=== PATIENT | female | born 1990 | race African-American/Black ===

== ENCOUNTER 2020-01-01 20:15 | Emergency (ER) | payer OTHER, SELFPAY ==
[2020-01-01 20:17] VITALS: BP 137/71; PULSE 85; RESP 18; TEMP 36.9; O2SAT 99
--- NOTE | 2020-01-01 20:28 | ED.SKABFB ---
HPI - Skin/Abscess/Foreign Bdy General Chief complaint: Skin/Abscess/Foreign Body Stated complaint: WOUND Time Seen by Provider: 01/01/20 20:22 Source: patient and RN notes reviewed Mode of arrival: other Limitations: no limitations History of Present Illness HPI narrative: Pt is a 29 y/o female who presents to the ED with c/o of a hair bump on her left groin that began a month ago. She notes that she tried to get the hair out herself, but has not had any luck. Pt's LMP was 12/04/19. Pt also reports neck swelling, diffuse body tingling, weight gain, increased sleeping, thick white vaginal discharge, and pelvic pain, but denies a fever, sore throat, rhinorrhea, dysuria, and pruritus. MD complaint: other (hair bump) Onset (ago): month(s) (1) Location: genitals Associated symptoms: other (neck swelling, diffuse body tingling, weight gain, increased sleeping, thick white vaginal discharge, pelvic pain) Related Data Allergies Allergy/AdvReac Type Severity Reaction Status Date / Time Sulfa (Sulfonamide Allergy Severe SWELLING Verified 01/01/20 20:25 Antibiotics) Review of Systems Review of Systems: All systems reviewed & are unremarkable except as noted in HPI and below Constitutional: Constitutional: Denies fever(s), Reports weight gain and Reports other (increased sleeping) ENT: Denies sore throat and Denies other (rhinorrhea) Genitourinary: Genitourinary: Denies dysuria, Reports pelvic pain and Reports vaginal discharge (thick white) Musculoskeletal: Musculoskeletal: Reports other (neck swelling) Integumentary/Breasts: Skin/Breast: Denies pruritus and Reports other (hair pump on left groin) Neurologic: Reports tingling (diffuse body) PMFSH Past Medical History Medical History (Updated 01/02/20 @ 00:00 by Abelardo Mojica) Patient denies significant medical history Surgical History Surgical History (Updated 01/01/20 @ 20:38 by Yesenia Ricketts) Hx of section Social History Social History (Updated 01/01/20 @ 20:28 by Yesenia Ricketts) Smoking status: Never smoker Exam Narrative: Exam Narrative: GENERAL: Well-appearing, well-nourished, and in no acute distress. HEAD: Normocephalic, atraumatic EYES: PERRLA and EOMI, conjunctiva clear without discharge EARS: TM's clear bilaterally without erythema or dullness NOSE: Nares clear, no rhinorrhea or epistaxis THROAT:Mucous membranes moist, Oropharynx normal without erythema, exudate, peritonsillar swelling or fluctuance NECK: Supple, without lymphadenopathy or mass RESPIRATORY: No respiratory distress, Airway patent, Respirations non-labored, Clear to auscultation without rales, rhonchi or wheeze HEART: Regular rate and rhythm. No murmur heard. Normal peripheral pulses. ABDOMEN: Soft, mild suprapubic tenderness, nondistended, normal active bowel sounds. No masses. No rebound or guarding, No organomegaly. EXTREMITIES: No edema, normal strength with full range of motion. SKIN: Warm, dry, normal color without rash NEURO: Alert and oriented x3. CN 2-12 grossly intact. No focal deficits. PSYCH: Normal mood and affect. : Speculum Exam - Cervix: normal appearance of the cervix and Cervical os closed Bimanual exam- vagina & uterus: no cervical motion tenderness Bimanual Exam- Adnexa, other: no masses Other: thick yellow mucous vaginal discharge, scant amount, cervix otherwise appears normal. No pustules or lesions seen on vulva. No inguinal lymphadenopathy Skin: General skin exam: normal color Rashes: no rashes Course Course Emergency Course: Patient presented with complaints she believe is stemming from hair bump. On evaluation, I did not seen findings of infected hair bump or abscess or cellulitis. I discussed with patient she will need to follow up with PCP and OBGYN for continued evaluation if her concerns don't clear after receiving antibiotics for her vaginal discharge Vital Signs Vital signs: Vital Signs Temperature 9
[2020-01-01 21:01] LABS: Add Urine Microscopic? YES; Appearance Urine Clear (Clear); Bilirubin Urine Negative (Negative); Blood Urine Negative (Negative); Color Urine Yellow (Yellow); Glucose Urine UA Negative (Negative); Ketones Urine 2+ mg/dL (Negative); Leukocyte Esterase Ur Negative LEU/UL (Negative); Mucus Urine Moderate /lpf; Nitrate Urine Negative (Negative); Protein Urine Negative (Negative); RBC Urine 0-2 /hpf (0-2); Specific Grav Ur 1.026 (1.001-1.035); Squamous Epithelial Cell Urine Moderate /hpf (Few); Urobilinogen Urine Negative mg/dL (<2.0); WBC Urine 0-3 /hpf
--- NOTE | 2020-01-01 21:44 | PC.NURSE ---
Pt upset that we won't test her for HIV. I explained to her that that is not something we test for in the ED. Pt states So basically youre refusing care because I have concerns and you aren't treating me I explained sarah that this is not a test that we do in the ED and she can have that done at her PCP. She states Well i don;t have a car so that is gonna cost like another $30 to go there, I just don't know why i can't get it here since im already here, I know I have had it done before I said again thats not something we do here, its not an emergent test
[2020-01-01] MEDS: AZITHROMYCIN 250 MG TABLET 1000 MG PO (22:15)
[2020-01-01] MEDS: LIDOCAINE HCL 1% LOCAL INJ 20 ML VIAL (22:15)
[2020-01-01] MEDS: cefTRIAXone 250 MG VIAL IM (22:15)
== END 2020-01-01 22:45 | disposition home or self-care (01) ==
PROVIDERS: Emergency Provider General Practice
DX: N89.8 Other specified noninflammatory disorders of vagina (principal)
CPT/HCPCS: 81001; 81025; 87070; 87491; 87591; 87808; 96372; 99284; A9270; J0696

== ENCOUNTER 2025-02-04 17:16 | Emergency (ER) | payer OTHER, SELFPAY ==
--- NOTE | ~2025-02-04 | CT_ITS ---
CLINICAL INDICATION: 34-year-old woman presents with throbbing lower back pain following exertion 3 days earlier. COMPARISON: None. TECHNIQUE: Multiple contiguous axial images of the abdomen, pelvis and lumbar spine were performed wi thout the administration of intravenous contrast The dose-length product (DLP) was 914.54 mGy-cm. Automated exposure control and iterative reconstruction technique were employed. FINDINGS/OBSERVATIONS: Visualized lower thorax: The bilateral lung bases are clear. The heart is of normal size, without pericardial effusion. Small hiatal hernia is present. Liver: The liver demonstrates homogeneous attenuation and is not enlarged measuring 14 cm in longitudinal di mension. Gallbladder and biliary system: The gallbladder is only minimally distended, and otherwise unremarkable. Pancreas: Limited evaluation of the pancreas secondary to the lack of intravenous contrast. Spleen: The spleen demonstrates homogeneous attenuation and is not enlarged measuring 9 cm in longitudinal di mension. Kidneys: The bilateral kidneys are unremarkable, without hydronephrosis or renal calculi. Adrenal glands: Unremarkable. Gastrointestinal tract: Fecal stasis within the colon. Appendix: The air-filled appendix is of normal caliber (axial series, images 122 through 131) Vasculature: Unremarkable. Lymph nodes: Limited evaluation without intravenous contrast. Pelvic structures: The bladder is decompressed, and otherwise unremarkable. The uterus is retroverted and retroflexed, and nodular in contour. Free fluid within the pelvis, not uncommon for a patient of this age. Body wall and musculoskeletal: No significant degenerative disease within the lower thoracic or lumbosacral spine. IMPRESSION: No acute findings within the abdomen, pelvis, lower thoracic or lumbosacral spines, as detailed above Reviewed, dictated and finalized at location A. IMPRESSION: No acute findings within the abdomen, pelvis, lower thoracic or lumbosacral spi yaw, as detailed above
[2025-02-04 17:31] VITALS: BP 127/64; PULSE 85; RESP 20; TEMP 36.4; O2SAT 100
--- OUTSIDE RECORDS SUMMARY | 2025-02-04 19:00 | XMS_ITS | Referral Summary ---
Author Organization [facility] Address [address] [place] [address] Care Team Providers Care Exercise Rider Name Role Phone Miriam Marcelino Primary Care Provider [phone] Source Comments [facility] Affiliates and Associated Physician Practices is amultiple site organization consisting of ambulatory clinics and hospital sitesin [place], [place], [place] and [place]. This disclosure is being madepursuant to the Care Everywhere program and may not contain all information available regarding this patient. Last updated 18.[facility] Allergies Active Allergy Reactions Criticality Noted Date Comments Sulfa Drugs Swelling 04/20/2018 Medications * Be aware that medications may not be up to date on this document. Alwaysverify current medications with the patient. Medication Sig Dispensed Refills Start Date End Date Status erythromycin (ERYDERM) 2 % solutionIndications:H irsutism,Postinflamma tory hyperpigmentation,Monica terial folliculitis Apply to affected area 2 times daily Apply to navas area twice daily for 3 days when you celeste. 30 days supply. 60 mL 5 04/20/2018 Active spironolactone (ALDACTONE) 100 MG tabletIndications:Hir sutism Take 1 tablet by mouth once daily 30 day supply. 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 Social History Tobacco Use Types Packs/Day Years Used Date Smoking Tobacco: Former Cigars Smokeless Tobacco: Never Comments:very rarely Alcohol Use Standard Drinks/Week Comments Yes 0 (1 standard drink = 0.6 oz pur e alcohol) socially Sex and Gender Information Value Date Recorded Sex Assigned at Not on file Gender Identity Not on file Sexual Orientation Not on file Last Filed Vital Signs Vital Sign Reading Time Taken Comments Blood Pressure 133/81 04/30/2022 2:48 PM CDT Pulse 91 04/30/2022 2:48 PM CDT Temperature 36.4 C (97.6 F) 04/30/2022 2:48 PM CDT Respiratory Rate 18 04/30/2022 2:48 PM CDT Oxygen Saturation 98% 04/30/2022 2:48 PM CDT Inhaled Oxygen Concentration - - Weight 102.1 kg (225 lb) 04/30/2022 2:48 PM CDT Height 167.6 cm (5' 6 ) 04/30/2022 2:48 PM CDT Body Mass Index 36.32 04/30/2022 2:48 PM CDT Plan of Treatment Not on file Procedures Procedure Name Priority Date/Time Associated Diagnosis Comments HIV-1 HIV-2 ANTIBODY + HIV P24 AG PANEL STAT 04/30/2022 6:34 PM CDT from Last 3 Months or Most Recently Relevant to Health Maintenance Results * HIV-1 HIV-2 ANTIBODY + HIV P24 AG PANEL (04/30/2022 6:34 PM CDT) HIV Antigen/Antibod y 1 & 2 Non-reacti ve Non-react tania 04/30/2022 8:[address] [facility] Comment:No Laboratory eviden ce of HIV infection. Blood BLOOD SPECIMEN / Unknown Venipuncture / Unknown 04/30/2022 6:34 PM CDT 04/30/2022 6:38 PM CDT Renato Parr MD LAB - CHEMISTRY ORDERABLES [facility] [address] [place] [address], [facility] [phone] from Last 3 Months or Most Recently Relevant to Health Maintenance Care Teams Exercise Rider Relationship Specialty Start Date End Date Miriam Marcelino PA [address] [place] [address] PCP - General 10/21/18
--- OUTSIDE RECORDS SUMMARY | 2025-02-04 19:00 | XMS_ITS | Patient Health Summary ---
Author Organization [facility] Address [address] [place] [address] Care Team Providers Care Complaint Investigator Name Role Phone Miriam Marcelino Primary Care Provider [phone] Note from [facility],non-owned Affiliates and Associated Physician Practices is amultiple site organization consisting of ambulatory clinics and hospital sitesin [place], [place], [place] and [place]. This disclosure is being madepursuant to the Care Everywhere program and may not contain all information available regarding this patient. Last updated 18.[facility] Allergies * Sulfa Drugs(Swelling) Medications * Be aware that medications may not be up to date on this document. Alwaysverify current medications with the patient. * erythromycin (ERYDERM) 2 % solution(Started 04/20/2018) Apply to affected area 2 times daily Apply to navas area twice daily for 3 days when you ceelste. 30 days supply. 5 refills remaining * spironolactone (ALDACTONE) 100 MG tablet(Started 04/20/2018) Take 1 tablet by mouth once daily 30 day supply. 6 refills remaining Active Problems Problem Noted Date Diagnosed Date [...] Mass Index 36.32 04/30/2022 2:48 PM CDT Procedures * SYPHILIS ANTIBODY CASCADING REFLEX(Performed 04/30/2022) * HIV-1 HIV-2 ANTIBODY + HIV P24 AG PANEL(Performed 04/30/2022) * LIPASE BLOOD(Performed 04/30/2022) * COMPREHENSIVE METABOLIC PANEL(Performed 04/30/2022) * CBC W AUTO DIFFERENTIAL(Performed 04/30/2022) * CHLAMYDIA + GC AMPLIFIED PROBE(Performed 04/30/2022) * BACTERIAL VAGINOSIS RAPID TEST(Performed 04/30/2022) * TRICHOMONAS VAGINALIS AMPLIFIED PROBE(Performed 04/30/2022) * HCG URINE QUALITATIVE(Performed 04/30/2022) * URINALYSIS REFLEX TO MICROSCOPIC NO CULTURE(Performed 04/30/2022) Results * SYPHILIS ANTIBODY CASCADING REFLEX (04/30/2022 6:34 PM CDT) Treponema pallidum Antibody Non-react tania Non-react tania 04/30/2022 8:07 PM CDT [facility] Comment: No Laboratory evidence of syphilis infection. Note: Circulating antibodies may be low or undetectable in early infection. If recent exposure is suspected, re-draw sample in 2-4 weeks and repeat testing. Blood BLOOD SPECIMEN / Unknown Venipuncture / Unknown 04/30/2022 6:34 PM CDT 04/30/2022 6:38 PM CDT Renato Parr MD LAB - SEROLOGY ORDERABLES [address] [address], [facility] [phone] * HIV-1 HIV-2 ANTIBODY + HIV P24 AG PANEL (04/30/2022 6:34 PM CDT) Pathologist [facility] HIV Antigen/Antibod y 1 & 2 Non-reacti ve Non-react tania 04/30/2022 8:07 PM CDT [facility] Comment:No Laboratory eviden ce of HIV infection. Blood BLOOD SPECIMEN / Unknown Venipuncture / Unknown 04/30/2022 6:34 PM CDT 04/30/2022 6:38 PM CDT Renato Parr MD LAB - CHEMISTRY ORDERABLES Performing Organization Address [facility]/ZIP Co de Phone Number [address] [address], [facility] [phone] * (ABNORMAL) CBC W AUTO DIFFERENTIAL (04/30/2022 3:41 PM CDT) Pathologist [facility] WBC 4.9 3.5 - 10.5 10 3/uL 04/30/2022 4:18 PM CDT [facility] RBC 4.59 3.80 - 5.20 10 6/uL 04/30/2022 4:18 PM T [facility] Hemoglobin 12.2 12.0 - 15.6 g/dL 04/30/2022 4:18 PM T [facility] Hematocrit 38.4 35.0 - 45.0 % 04/30/2022 4:18 PM CDT [facility] MCV 83.7 80.7 - 98.3 fL 04/30/2022 4:18 PM CDT [facility] MCH 26.6(L) 26.7 - 34.0 pg 04/30/2022 4:18 PM CDT [facility] MCHC 31.8 30.8 - 35.9 g/dL 04/30/2022 4:18 PM CDT [facility] Platelet Count 256 150 - 400 10 3/uL 04/30/2022 4:18 PM [facility] RDW-SD 43.8 36.0 - 50.0 fL 04/30/2022 4:18 PM [facility] RDW-CV 14.4 11.2 - 14.8 % 04/30/2022 4:18 PM [facility] MPV 12.7 9.4 - 12.9 fL 04/30/2022 4:18 PM [facility] nRBC Absolute 0.00 0 10 3/uL 04/30/2022 4:18 PM [facility] nRBC Auto 0.0 0 /100 WBC 04/30/2022 4:18 PM [facility] Neutrophils % 54.6 35.0 - 70.0 % 04/30/2022 4:18 PM [facility] Lymphocytes % 34.0 20.0 - 43.0 % 04/30/2022 4:18 PM [facility] Monocytes % 10.2 5.0 - 13.0 % 04/30/2022 4:18 PM [facility] Eosinophils % 0.6 0.0 - 6.0 % 04/30/2022 4:18 PM [facility] Basophil % 0.4 0.0 - 2.0 % 04/30/2022 4:18 PM [facility] Neutrophils Absolute 2.7 1.6 - 7.0 10 3/uL 04/30/2022 4:18 PM [facility] Lymphocyte Absolute 1.7 1.1 - 3.9 10 3/uL 04/30/2022 4:18 PM [facility] Monocytes Absolute 0.50 0.26 - 1.07 10 3/uL 04/30/2022 4:18 PM [facility] Eosinophils Absolute 0.03 0.00 - 0.47 10 3/uL 04/30/2022 4:18 PM [facility] Basophils Absolute 0.02 0.00 - 0.08 10 3/uL 04/30/2022 4:18 PM [facility] Immature Granulocytes % 0.2 0.0 - 1.0 % 04/30/2022 4:18 PM [facility] Immature Granulocytes Absolute 0.01 04/30/2022 4:18 PM [facility] Blood BLOOD SPECIMEN / Unknown Venipuncture / Unknown 04/30/2022 3:41 PM CDT 04/30/2022 4:08 PM CDT Emigdio River PA-C LAB - HEMATOLOGY ORD ERABLES [facility] [address] [place] [id number], [facility] [phone] * COMPREHENSIVE METABOLIC PANEL (04/30/2022 3:41 PM CDT) BUN 7 7 - 26 mg/dL 04/30/2022 4:33 PM [facility] Creatinine 0.65 0.56 - 0.96 mg/dL 04/30/2022 4:33 PM [facility] Sodium 138 136 - 145 mmol/L 04/30/2022 4:33 PM [facility] Potassium 4.0 3.5 - 4.5 mmol/L 04/30/2022 4:33 PM [facility] Chloride 105 98 - 107 mmol/L 04/30/2022 4:33 PM [facility] CO2 24 22 - 29 mmol/L 04/30/2022 4:33 PM [facility] Glucose 92 70 - 115 mg/dL 04/30/2022 4:33 PM [facility] Calcium 9.3 8.4 - 10.2 mg/dL 04/30/2022 4:33 PM [facility] Protein Total 7.7 6.0 - 8.3 g/dL 04/30/2022 4:33 PM [facility] Albumin 4.2 3.4 - 5.0 g/dL 04/30/2022 4:33 PM [facility] Bilirubin Total 0.7 0.2 - 1.2 mg/dL 04/30/2022 4:33 PM [facility] Alkaline Phosphatase 46 40 - 150 U/L 04/30/2022 4:33 PM [facility] ALT 18 5 - 55 U/L 04/30/2022 4:33 PM [facility] AST 25 5 - 34 U/L 04/30/2022 4:33 PM CDT [facility] Anion Gap 13 8 - 18 04/30/2022 4:33 PM CDT [facility] BUN/Creatinine Ratio 11 7 - 23 04/30/2022 4:33 PM CDT [facility] Osmolality Calculated 284 270 - 300 mOsm/kg 04/30/2022 4:33 PM CDT [facility] Albumin/Globulin Ratio 1.2 1.1 - 2.3 04/30/2022 4:33 PM T [facility] eGFR by CKD-EPI >90 >=90 mL/min/1.7 3 m2 04/30/2022 4:33 PM CDT [facility] Blood BLOOD SPECIMEN / Unknown Venipuncture / Unknown 04/30/2022 3:41 PM CDT 04/30/2022 4:08 PM CDT [employer] [employer] LAB - CHEMISTRY [employer] JACQUES [facility] [address] [place] [address], [place] [phone] * LIPASE BLOOD (04/30/2022 3:41 PM CDT) Lipase 16 8 - 78 U/L 04/30/2022 4:33 PM CDT [facility] Blood BLOOD SPECIMEN / Unknown Venipuncture / Unknown 04/30/2022 3:41 PM CDT 04/30/2022 4:08 PM CDT Emigdoi Dun[place] PA-C LAB - CHEMISTRY [employer] [facility] [address] [place] [phone], [place] [phone] * BACTERIAL VAGINOSIS RAPID TEST (04/30/2022 3:38 PM CDT) Bacterial Vaginosis Rapid Negative Negative 04/30/2022 4:29 PM CDT [facility] Microbiology VAGINAL SWAB / Unknown Collection / Unknown 04/30/2022 3:38 PM CDT 04/30/2022 4:06 PM CDT Emigdio River PA-C LAB - MICROBIOLOGY O RDANTIONE [facility] [address] [place] [address], [place] [phone] * TRICHOMONAS VAGINALIS AMPLIFIED PROBE (04/30/2022 3:38 PM CDT) Trichomonas vaginalis Amplified Probe Negative Negative 05/01/2022 10:10 AM CDT [facility] MICROBIOLOGY Microbiology ENTIRE VAGINA / Unknown Collection / Unknown 04/30/2022 3:38 PM CDT 04/30/2022 4:06 PM CDT Narrative [facility]CRO[facility] - 05/01/2022 10:10 AM CDT Results based on detection/no detection of ribosomal RNA by amplified method. Emigdio River PA-C LAB - MICROBIOLOGY O MARIBEL Performing Organization Address [facility]/ZIP Co de Phone Number [facility]OLOG[facility] [address] [place] [address], [facility] [phone] * CHLAMYDIA + GC AMPLIFIED PROBE (STL) (04/30/2022 3:38 PM CDT) Chlamydia Amplified Probe Negative Negative 05/01/2022 5:45 AM CDT [facility] MICROBIOLOG[facility] GC Amplified Probe Negative Negative 05/01/2022 5:45 AM CDT [facility] MICROBIOLOGY Microbiology ENTIRE VAGINA / Unknown Collection / Unknown 04/30/2022 3:38 PM CDT 04/30/2022 4:06 PM CDT Narrative [facility]CRO[facility] - 05/01/2022 5:45 AM CDT Results based on detection/no detection of ribosomal RNA by amplified method. Emigdio River PA-C LAB - MICROBIOLOGY O RDERABLES Performing Organization Address City/[facility]/ZIP Co de Phone Number [facility]CRO[facility]OLOG[facility] [address] [place] [address], [facility] [phone] * (ABNORMAL) URINALYSIS REFLEX TO MICROSCOPIC NO CULTURE (04/30/2022 3:33 PM CDT) Color UA Yellow Straw, Yellow 04/30/2022 4:26 PM [facility] Clarity UA Slt Cloudy(A) Clear 04/30/2022 4:26 PM [facility] Specific [place] UA 1.021 1.005 - 1.030 04/30/2022 4:26 PM [facility] pH UA 5.0 5.0 - 8.0 pH 04/30/2022 4:26 PM [facility] Protein UA Negative Negative 04/30/2022 4:26 PM [facility] Glucose UA Negative Negative 04/30/2022 4:26 PM [facility] Ketone UA Trace(A) Negative 04/30/2022 4:26 PM [facility] Bilirubin UA Negative Negative 04/30/2022 4:26 PM [facility] Blood UA Negative Negative 04/30/2022 4:26 PM [facility] Nitrite UA Negative Negative 04/30/2022 4:26 PM [facility] Leukocyte Esterase Trace(A) Negative 04/30/2022 4:26 PM [facility] Urobilinogen UA Negative Negative mg/dL 04/30/2022 4:26 PM [facility] RBC UA 0-2 None Seen, 0-2, 3-5 /HPF 04/30/2022 4:26 PM [facility] WBC UA 0-5 None Seen, 0-5 /HPF 04/30/2022 4:26 PM [facility] Bacteria UA 2+(A) None /HPF 04/30/2022 4:26 PM [facility] Squamous Epithelial Cells UA 0-2 None Seen, 0-2, 3-5 /HPF 04/30/2022 4:26 PM [facility] Mucus UA 3+ /LPF 04/30/2022 4:26 PM [facility] Urine URINE SPECIMEN OBTAINED BY CLEAN CATCH PROCEDURE / Unknown Collection / Unknown 04/30/2022 3:33 PM CDT 04/30/2022 4:06 PM CDT Narrative [facility] - 04/30/2022 4:26 PM CDT Emigdio River PA-C LAB - URINALYSIS ORD ERABLES Performing Organization Address City/[facility]/ZIP Co de Phone Number [facility] [address] [place] [address], [place] [phone] * HCG URINE QUALITATIVE (04/30/2022 3:33 PM CDT) Test Urine Negative Negative 04/30/2022 4:35 PM CDT [facility] Urine URINE / Unknown Collection / Unknown 04/30/2022 3:33 PM CDT 04/30/2022 4:06 PM CDT Emigdio River PA-C LAB - URINALYSIS ORD ERABLES Performing Organization Address City/[facility]/ZIP Co de Phone Number [address] [address], [place] [phone] Care Teams Complaint Investigator Relationship Specialty Start Date End Date Miriam Marcelino PA [address] [place] [address] [place] [id number] PCP - General 10/21/18
--- OUTSIDE RECORDS SUMMARY | 2025-02-04 19:00 | XMS_ITS | Data Portability ---
Author Organization [facility] Address [address] [place] [address] Assessment Encounter Date Assessment Date Assessment LastModified by Organization Details LastModified Time 08/04/2024 08/04/2024 Annual gynecological exam performed. Patient will come back in a year unless there are new symptoms. [email or web address] Not available 08/04/2024 10:03:53 Plan of Treatment Reminders Order Date Submit Date Provider Last Modified By Organization Details Last Modified Time Details Appointments None recorded. Lab hsv-2 igg Ab, serum [address] (Lab), [address], [place], [address], 5 11:25:22 hbcab (hepatitis B core Ab) igm, serum [address] (Lab), [address] [place], [address], 5 11:25:22 HBsAg (hepatitis B surface Ag), serum [address] (Lab), [address] [place], [address], 5 11:25:22 hepatitis C virus Ab, serum [address] (Lab), [address] [place], [address], 5 11:25:22 HIV 1+2 AB + HIV 1 p24 Ag, qualitative immunoassay , serum [address] (Lab), [address], [place], [address], 5 11:25:22 RPR (rapid plasma reagin), serum [address] (Lab), [address], [place], [address], 5 11:25:23 CT + NG + TV, RNA, unspecified specimen 2023 024 [facility] (Lab), [address], [place], [address], 4 13:55:59 urinalysis, dipstick 2023 024 [email or web address] [address], [facility] [address], [place], [address], 4 10:39:13 culture, urine 2023 024 [facility] (Lab), [address], [place], [address], 4 06:52:31 CBC w/ auto diff [address] (Lab), [address], [place], [address], 4 11:35:14 CMP, serum or plasma [address] (Lab), [address], [place], [address], 4 11:35:14 lipid panel, blood [address] (Lab), [address], [place], [address], 4 11:35:14 TSH, serum or plasma [address] (Lab), [address] [facility], [place], [address], 4 11:35:14 25-hydroxyv itamin D2 + 25-hydroxyv itamin D3, QN, serum or plasma [address] (Lab), [address] [facility], [place], [address], 4 11:35:14 pap, IG + HR HPV - HPV regardless but if HPV is positive need subtyping 16,18/45 2023 024 [facility] (Lab), [address] [facility], [place], [address], 4 11:08:41 Referral None recorded. Procedures None recorded. Surgeries None recorded. Imaging None recorded. Medication Orders fluconazole 150 mg tablet 2024 025 [facility] [address] [place], [address], 5 16:27:12 metronidazo le 0.75 % (37.5 mg/5 gram) vaginal gel 2024 025 [facility] [address] [place], [address], 5 16:27:11 nystatin-tr iamcinolone 100,000 unit/gram-0 .1 % topical ointment 2024 025 [facility] [address] [place], [address], 5 16:27:12 fluconazole 150 mg tablet 2023 024 [facility] [address] [place], [address], 11:56:57 metronidazo le 0.75 % (37.5 mg/5 gram) vaginal gel 2023 [facility] [address] [place], [address], 11:56:57 Cipro 500 mg tablet 2023 [facility] [address] [place], [address], 10:34:57 Diflucan 150 mg tablet 2023 [facility] [address] [place], [address], 10:35:03 Patient TargetsNo targets recorded. Patient InstructionsNo instructions recorded. Reason for Referral None Reported. Results Created Date Observation Date Name Description Value Unit Range Abnormal Flag Note LastModifiedBy Organization Detail LastModifiedTime 08/04/2008/04/2024 urina lysis , dipst ick Leukocytes trace Not Available Verito bowen [address], [place], [address], 08/04/2024 10:37:35 08/04/20 24 08/04/2024 urina lysis , dipst ick Nitrite normal Not Available [facility] [address], [place], [address], 08/04/2024 10:37:35 08/04/20 24 08/04/2024 urina lysis , dipst ick Urobilinogen normal Not Available Magi maki [address], [place], [address], 08/04/2024 10:37:35 08/04/20 24 08/04/2024 urina lysis , dipst ick Protein trace Not Available [facility] [address], [place], [address], 08/04/2024 10:37:35 08/04/20 24 08/04/2024 urina lysis , dipst ick pH 5 Not Available [facility] [address], [place], [address], 08/04/2024 10:37:35 08/04/20 24 08/04/2024 urina lysis , dipst ick Blood +++ Not Available [facility] [address], [place], [address], 08/04/2024 10:37:35 08/04/20 24 08/04/2024 urina lysis , dipst ick Specific [place] 1.020 Not Available [facility] michael [address], [place], [address], 08/04/2024 10:37:35 08/04/20 24 08/04/2024 urina lysis , dipst ick Ketone normal Not Available [facility] [address], [place], [address], 08/04/2024 10:37:35 08/04/20 24 08/04/2024 urina lysis , dipst ick Bilirubin normal Not Available Josy juarez [address], [place], [address], 08/04/2024 10:37:35 08/04/20 24 08/04/2024 urina lysis , dipst ick Glucose normal Not Available [facility] [facility] [address], [place], [address], 08/04/2024 10:37:35 08/04/20 24 08/04/2024 urina lysis , dipst ick Appearance normal Not Available Verito bowen [address], [place], [address], 08/04/2024 10:37:35 08/04/20 24 08/04/2024 urina lysis , dipst ick Color normal Not Available [facility] [address], [place], [address], 08/04/2024 10:37:35 08/06/20 24 08/06/2024 CULTU RE: URINE result report SEE RESULT S BELOW Test: Cultu re: Urine Speci men Sourc e: Urine - Clean Catch Speci men Type: Urine Speci men Date: 2023 0827 Resul t Date: 2023 0548 Resul t Statu s: Final resul t Abnor mal: No Resul ting Lab: [facility] [address] [facility] [address] Tel: CULTU RE ----- ----- ----- --- No growt h in 1 day (dete ction level of 10,00 0 colon ies / ml.) Not Available [facility] (Lab) [address] [facility], [place], [address], 08/08/2024 06:52:31 08/06/20 24 08/06/2024 IMAGE GUIDE D PAP AND HPV REGAR DLESS image guided Pap, HPV regardless of Pap result SEE RESULT S BELOW CASE REPOR T: Cytol ogy Gynec ologi paty Repor t Case: [id number] Autho jefe hutchison Provi sandy: Mervat Fisher MD Colle cted: 08/06 0830 Order ing Locat ion: [place] [facility] Recei dipti: 08/07 0904 First Scree n: Ronnie [place], CT Speci men: Scree jesus Pap - Image d, Cervi x STATE MENT OF ADEQU ACY: Satis facto ry for evalu ation Trans forma tion zone compo nent prese nt Parti ally obscu ring blood prese nt. ----- ----- ----- ----- ----- ----- ----- ----- ----- ----- ----- ----- ----- ----- ----- ----- ----- ---- FINAL DIAGN OSIS: Negat tania for Intra epith elial Gregg wylie or Linnea velazquez (NIL) . Elect candice rosenberg d by Ronnie Martinez CT on 2023 at 10:05 AM ----- ----- ----- ----- ----- ----- ----- ----- ----- ----- ----- ----- ----- ----- ----- ----- ----- ---- HPV RESUL TS: HPV mRNA E6/E7 : No HPV mRNA Detec jojo NOTE: This high risk HPV mRNA assay detec ts fourt een high- risk HPV types (16, 18, 31, 33, 35, 39, 45, 51, 52, 56, 58, 59, 66, 68) witho ut diffe renti ation . COMME NT: This speci men was revie wed by a Cytot echno logis t and/o r Patho logis t (as indic ated in this repor t) after evalu ation using the Thinp rep Imagi ng Syste m. CLINI PATY INFOR MATIO N: Menst rual Statu s: LMP (if appli cable ): Clini paty Histo ry/Pr eviou s Pap: Type of Neopl ean (if appli cable ): Signi fican t Clini paty Findi ngs: Other Histo ry: Hormo yaw (if appli cable ): PAP EDUCA DAVE L NOTE: The Pap Test is a scree jesus test with an inher ent false negat tania rate. Liqui d-bas ed sampl ing may decre ase, but will not elimi laney, false negat tania resul ts. A negat tania resul t does not precl ude the prese nce and/o r devel opmen t of disea se, since the prese nce of abnor mal cells in the sampl e depen ds on the locat ion of the lesio n and sampl ing techn ique. Maria Eugenia nued regul ar scree jesus is the best metho d of cance r preve ntion . If repor jojo cytol ogic findi ng do not corre late with physi paty and/o r histo rical findi ngs, furth er inves tigat ion is recom bernie d, as clini yaima colón nted. Not Available [facility] (Lab) [address] [facility], [place], [address], 08/13/2024 11:08:40 10/01/20 24 10/01/2024 CT/GC AND TRICH OMONA S VAGIN CRYSTAL (RRNA ), URINE chlamydia trachomatis, PCR Negati ve negati ve Not Available [facility] (Lab) [address] [facility], [place], [address], 10/02/2024 13:55:59 10/01/20 24 10/01/2024 CT/GC AND TRICH OMONA S VAGIN CRSYTAL (RRNA ), URINE neisseria gonorrhoeae, PCR Negati ve negati ve Not Available [facility] (Lab) [address] [facility], [place], [address], 10/02/2024 13:55:59 10/01/20 24 10/01/2024 CT/GC AND TRICH OMONA S VAGIN CRYSTAL (RRNA ), URINE trichomonas vaginalis ribosomal RNA (rrna) Negati ve negati ve Not Available [facility] (Lab) [address] [facility], [place], [address], 10/02/2024 13:55:59 12/10/19 25 12/10/2024 [facility]OM[facility] SW[facility], WM bacterial vaginosis (bv), tma Negati ve negati ve This test detec ts ribos omal RNA from bacte isabel assoc iated with bacte rial vagin osis (BV), inclu ding Lacto bacil poly (L. gasse ri, L. crisp atus and L. jense stanley), Gardn erell a vagin crystal, and Atopo bium vagin ae by Trans cript ion-M ediat ed Ampli ficat ion (TMA) . A miguel good e grover t is repor jojo based on instr ument softw are to deter mine BV posit tania or negat tania statu s. Not Available [facility] (Lab) [address] [facility], [place], [address], 12/11/2024 22:35:09 12/10/19 25 12/10/2024 [facility]OM[facility] H SWAB, WM tej species, tma Negati ve negati ve Not Available [facility] (Lab) [address] [facility], [place], [address], 12/11/2024 22:35:09 12/10/19 25 12/10/2024 WOMEN 'S HEALT H SWAB, WM tej glabrata, tma Negati ve negati ve Not Available [facility] (Lab) [address] [facility], [place], [address], 12/11/2024 22:35:09 12/10/19 25 12/10/2024 [facility] SW[facility], WM trichomonas vaginalis, tma Negati ve negati ve This assay tests for and diffe renti ates betwe en Ally da glabr jaime, the Ally da speci es group (C. albic ans, C. tropi calis , C. parap sandra is, C. dubli niens is), and Trich omona s vagin crystal by Trans cript ion-M ediat ed Ampli ficat ion (TMA) . Not Available [facility] (Lab) [address] [place], [address], 12/11/2024 22:35:09 Result Notes None recorded. 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 Procedures Surgical History Date Name Laterality Status Provider Name and Address Organization Details Recorded Time 11/22/19 25 Date of Last Mammogram completed NATHAN Mosqueda [facility] 12/10/2024 16:10:15 08/06/20 24 Date of Last Pap Smear completed Prachi Rosenberg [facility] 09/29/2024 10:34:57 04/17/20 11 section completed Grisel [facility] 08/04/2024 11:08:17 11/21/19 09 Tonsillectomy completed [facility] 08/04/2024 11:08:41 Imaging Results None recorded. Procedure Notes None recorded. Medical Equipment None Reported. Allergies Allergen ID Allergen Name Allergen Category Reaction Reaction Severity Criticality Documentation Date Start Date Code Code System Note Provider Name and Address Organization Details Recorded Time 9660 Substance with sulfonami de structure and antibacte rial mechanism of action (substanc e) medicatio n Not available Not available Not available 11/07/2020 44633 8003 SNOMED Comme nt: [facility]; Not Available [facility] 0 14:14:35 Medications Name Sig Start Date Stop Date Status Note LastModified by Organization Details LastModified Time terconazo le 0.4 % vaginal cream INSERT ONE APPLICAT ORFUL VAGINALL Y ONCE A DAY AT BEDTIME FOR 7 DAYS active Not Available Not Available No t Available fluconazo le 150 mg tablet take 1 tablet by mouth now, repeat in 72 hours if needed active Not Available Not Available No t Available fluconazo le 200 mg tablet TAKE ONE TABLET BY MOUTH DAILY FOR 2 DAYS active Not Available Not Available No t Available phenazopy ridine 200 mg tablet TAKE ONE TABLET BY MOUTH THREE TIMES DAILY AFTER MEALS FOR 2 DAYS active Not Available Not Available No t Available metronida zole 0.75 % (37.5 mg/5 gram) vaginal gel insert 1 applicat orful by vaginal route every day at bedtime for 5 nights active Not Available Not Available No t Available moxifloxa sanjuanita 400 mg tablet TAKE 1 TABLET BY MOUTH ONCE DAILY 12/10 completed Not Available Not Available Not Available clotrimaz ole 1 % vaginal cream APPLY CREAM VAGINALL Y ONCE A DAY AT BEDTIME FOR 7 DAYS active Not Available Not Available No t Available metronida zole 500 mg tablet TAKE 1 TABLET BY MOUTH THREE TIMES DAILY FOR 10 DAYS active Not Available Not Available No t Available nystatin- triamcino lone 100,000 unit/gram -0.1 % topical ointment Apply by topical route for 5 days. active Not Available Not Available No t Available phenazopy ridine 100 mg tablet TAKE 1 TABLET BY MOUTH THREE TIMES DAILY FOR 2 DAYS active Not Available Not Available No t Available cephalexi n 500 mg capsule TAKE 1 CAPSULE BY MOUTH 4 TIMES DAILY FOR 5 DAYS 12/10 completed Not Available Not Available Not Available Cipro 500 mg tablet Take 1 tablet every 12 hours by oral route. 09/29 completed Not Available Not Available Not Available mupirocin 2 % topical ointment apply by topical route 2 times every day a small amount to the affected area x 7 days 08/04 completed Prescrib ed Elsewher e: No Locat ion: [facility] odify By: oksana azar DateTime : 01/02/20 03:00:00 PM Not Available Not Available Not Available ergocalci ferol (vitamin D2) 1,250 mcg (50,000 unit) capsule TAKE 1 CAPSULE BY MOUTH ONCE A WEEK FOR 8 WEEKS active Not Available Not Available No t Available doxycycli ne hyclate 100 mg tablet TAKE 1 TABLET BY MOUTH TWICE DAILY 12/10 completed Not Available Not Available Not Available naproxen 500 mg tablet TAKE 1 TABLET BY MOUTH TWICE DAILY WITH FOOD NEEDED FOR PAIN active Not Available Not Available No t Available nitrofura ntoin monohydra te/macroc rystals 100 mg capsule TAKE 1 CAPSULE BY MOUTH TWICE DAILY FOR 7 DAYS (TAKE WITH PROBIOTI CS) active Not Available Not Available No t Available cholecalc iferol (vitamin D3) 50 mcg (2,000 unit) tablet TAKE 1 TABLET BY MOUTH ONCE DAILY (AFTER THE HIGH DOSE OF VITAMIN D ) active Not Available Not Available No t Available Vitals Date Recorded Body height Body mass index (BMI) Body weight Systolic blood pressure Diastolic blood pressure Provider Name and Address Organization Details Last Updated DateTime 08/04/2024 168.91 cm 33.9 kg/m2 77505.17 g 114 mm[Hg] 68 mm[Hg] Grisel Suarez [facility] 4 10:11:43 Date Recorded Body height Body mass index (BMI) Body weight Systolic blood pressure Diastolic blood pressure Provider Name and Address Organization Details Last Updated DateTime 09/29/2024 168.91 cm 33.9 kg/m2 53232.17 g 116 mm[Hg] 76 mm[Hg] Prachi Chet [facility] 4 10:34:35 Date Recorded Body height Body mass index (BMI) Body weight Systolic blood pressure Diastolic blood pressure Provider Name and Address Organization Details Last Updated DateTime 12/10/2024 168.91 cm 35 kg/m2 05769.32 g 117 mm[Hg] 72 mm[Hg] NATHAN Mosqueda [facility] 5 16:05:45 Social History Question Answer Notes LastModified by Organizat ion Details LastModified Time Tobacco Smoking Status Never Smoker Grisel Suarez [facility] 08/04/2024 11:07:43 What Is Your Level Of Alcohol Consumption? Occasional [email or web address] Information not available 08/04/2024 Are You Blind Or Do You Have Difficulty Seeing? No [email or web address] Information n ot available 08/04/2024 What Is Your Level Of Caffeine Consumption? None [email or web address] Information not available 08/04/2024 In The 14 Days Before Symptom Onset, Have You Had Close Contact With A Laboratory-confirm ed COVID-19 While That Case Was Ill? No [email or web address] Information n ot available 08/04/2024 In The 14 Days Before Symptom Onset, Have You Had Close Contact With A Person Who Is Under Investigation For COVID-19 While That Person Was Ill? No [email or web address] Information not available 08/04/2024 Have You Been To An Area Known To Be High Risk For COVID-19? No [email or web address] Information not available 08/04/2024 Are You Currently Employed? No [email or web address] Information not available 12/10/2024 Are You Deaf Or Do You Have Serious Difficulty Hearing? No Information not available 08/04/2024 What Type Of Diet Are You Following? REGULAR Information n ot available 08/04/2024 Have You Ever Been Counseled For Unhealthy Alcohol Use? No [email or web address] Information not available 08/04/2024 Do You Use Your Seat Belt Or Car Seat Routinely? Yes [email or web address] Information not available 08/04/2024 Are You Sexually Active? Yes [email or web address] Information not available 12/10/2024 Do You Have Smoke And Carbon Monoxide Detectors In Your Home? Yes [email or web address] Information not available 08/04/2024 Do You Feel Stressed (tense, Restless, Nervous, Or Anxious, Or Unable To Sleep At Night)? [id number] [email or web address] Information not available 08/04/2024 Do You Use Any Illicit Or Recreational Drugs? No [email or web address] Information not available 08/04/2024 Do You Use Sunscreen Routinely? Yes Information not available 08/04/2024 Has Tobacco Cessation Counseling Been Provided? No [email or web address] Information not available 08/04/2024 Do You Or Have You Ever Used Any Other Forms Of Tobacco Or Nicotine? No [email or web address] Information not available 08/04/2024 Sex: Unknown Functional Status Question Answer Note LastModified by Organizat ion Details LastModified Time Do you have difficulty walking or climbing stairs? No Information not available 08/04/2024 Are you able to walk? YESWOREST [email or web address] Information not available 08/04/2024 Are you able to care for yourself? Yes [email or web address] Information not available 08/04/2024 Do you have difficulty dressing or bathing? No [email or web address] Information not available 08/04/2024 What is your exercise level? Occasional [email or web address] Information not available 08/04/2024 Mental Status None recorded. Family History Relationship Description Onset Age of this Age Resolved Age Notes LastModified by Organization Details LastModified Time Maternal Grandfather Malignant tumor of colon [email or web address] Not available 08/04 11:07:00 Maternal Grandmother Malignant neoplasm of uterus [email or web address] Not available 08/04 11:07:13 Notes:Maternal grandfather: Cancer, colon Medical History Condition Response Allergies (Food, seasonal, environmental ) N Other Y Breast Cancer N Drug/Latex Allergies/Reactions N Blood Transfusion N Dermatologic Disorders N Lung Disease N Defects or Inherited Disease N Breast Problem N Gestational Diabetes N Hematologic disorders N Anesthesia Complications N History of STI N Deep Vein Thrombosis N Polycystic ovary syndrome N Anxiety Disorder N Autoimmune disease N Arthritis N Infertility N Polyps N Acid Reflux (GERD) N History of abnormal pap N Cancer N Stroke N Varicosities N Neurologic/Epilepsy N Endometriosis N High Cholesterol N Headaches N Fibromyalgia N Kidney Disease N Heart Problems N Kidney or Bladder Problems N Thyroid Problems N GI Problems N Eating Disorder N Anemia N Art (IVF or FET) N Psychiatric Illness N Ovarian Cancer N Diabetes N Pulmonary (TB, Asthma) N Hepatitis/Liver Disease N No Past Medical History N Eczema N Urinary Tract Infection N Abuse/Domestic Violence N Asthma N Trauma/Violence N Depression/ depression N Heart Disease N Pre-Eclampsia N Hypertension N Osteoporosis N Thrombophilias N Gynecological History Statement/Question Response Abnormal Pap N Flow Moderate Date of Last Mammogram 11/22/2024 Date of LMP 09/29/2024 On BCP's at Conception? N Was last menstrual period normal Y STIs/STDs N HPV Vaccine N Duration of Flow (days) 5 Current Control Method None Are cycles usually normal Y Date of Last Colonoscopy Frequency of Cycle (Q days) 28 Sexually Active? N Menses Monthly Y Date of DEXA bone scan Date of Last Pap Smear 08/06/2024 Sexual Problems? N LMP Definite Obstetrics History GPAL:G 3 P 2 1 0 2 Type Value Full Term 2 Premature 1 Living 2 Total 3 Past Encounters Encounter ID Performer Location Encounter Start Date Encounter Closed Date Diagnosis/Indication Diagnosis SNOMED-CT Code Diagnosis ICD10 Code Diagnosis Note [id number] Grisel Suarez [facility] [address] [address] 08/04/2024 09:45:55 08/04/2024 10:33:02 Gynecologic examination 78588917 Z01.419 Annual gynecologi paty exam performed. Patient will come back in a year unless there are new symptoms. Suggest Calcium with Vitamin D if not eating in diet. Patient advised to get annual flu shot. Recommend yearly physicals and preform monthly breast exams. Genetic testing is available for patients with family history of cancer. Engage in safe sexual practices, use condoms. Encouraged to have daily exercise. Avoid tobacco and illicit drugs, moderation of alcohol. If BMI greater than 25 dietary consult advised. If you have any questions please call or email. Pap smear- today laboratory evaluation -today Urinary tr act infectious disease 42928432 N39.0 Urinary symptoms 9736319 08 R39.9 [id number] Prachi Rosenberg [facility] [address],[facility] [place] [address] 09/29/2024 10:14:20 09/29/2024 11:59:16 Bacterial vaginosis 037707756 N76.0 Vaginitis 27497663 N76.0 Vaginal discharge 432660 006 N89.8 Sexually t ransmitted infectious disease 1259659 A64 [id number] BRIAN Young [facility] [address],[facility] [place] [address] 12/10/2024 15:53:45 12/11/2024 09:20:20 Vaginitis 41508851 N76.0 vaginitis/ STI panel sentvulvar care guidelines discussedr x sent for BV/yeast - r/b/a reviewedqu estions answered Time spent in visit is a total of 22 mins with at least 50% of visit consisting of counseling and review of plan of care. Venereal d isease screening 324200054 Z11.3 Health Concerns Section Related Observation LastModified by Organization Detai ls LastModified Time None Recorded Concern Status LastModified by Organization Details LastModified Time None Recorded Advance Directives Directive None Recorded Payers Encounter Date Sequence Insurance Name Policy Number Policy Jameson Covered Member ID Jameson Member ID Guarantor Name 08/04/2024 1 [place] [employer] [place] [employer] Tamara Meade [id number] Tamara Meade 09/29/2024 1 [place] [facility] Tamara Meade [id number] Tamara Meade 12/10/2024 1 [facility] (MEDICAID HMO) [id number] Tamara Meade [id number] Tamara Meade Notes Date Note Type Note Provider Name and Address Organization Details Recorded Time 08/04/2024 text/html Annual GYNReport ed bypatient.History:no gynecologic complaints Menstrual cycle:Normal menses Urinary symptoms:No hematuria Vulva:No genital lesion Vagina:Normal vaginal discharge Breast:No breast pain; No breast lump Current Contraception: control not practiced Sexual complaints:No sexual complaints; No pain during intercourse Menopausal Symptoms:No menopausal symptoms Psychological symptoms:No depression; No anxiety Preventive measures:Encourage self breast examination; Encourage regular exercise Grisel garcia, [facility] 08/04/2024 11:13:57 12/10/2024 text/html Vaginal/Vulvar ProblemReported bypatient.Notes:myco plasma - 34yopresents for vaginal discharge/odor/itchi ngsymptoms have been on and off x 3 monthsSA, no new partners neg pelvic painneg n/v/fneg flu-like symptoms BRIAN Young [address], [place], [address], [facility] 12/11/2024 09:06:36 OBGyn Episode Ob Episode Information Episode Created Date Number of Fetuses Patient Bloodtype Patient rh Status Prepregnancy Weight lbs Domestic Partner Domestic Partner Phone Father Name Care Transition Manager Status 08/04/20 24 1 CLOSED Fetus Data First Name Last Name Admitted to NICU Weight (g) Sex Living Outcome Pediatric Complications Fetus ID Race Codes Race Delivery Type 1474.17 4 M [place] [id number] Vaginal Delivery Francisco Calculation Initial Francisco Date Initial Exam Date Initial Exam Provider Initial Ultrasound Date Last Menstrual Period Date Ultra Sound Weeks Gestation 0 Eighteen To Twenty Week Francisco Update Ultra Sound Date Fundal Height At Umbil Quickening Date Ultra Sound Latest Weeks Gestation Final Francisco Confirmed By Final Francisco Confirmed Date Final Francisco Date Ultra Sound Latest Days Gestation 0 0 Menstrual History Last Menstrual Date Menses Monthly On Bcp Conception Prior Menses Frequency Hcg Plus Date Menarche Onset Age Delivery Information Delivery Date Delivery Type Labor Anesthesia Weeks Gestation Incision Type Labor Labor Length Hrs Delivered By Post Complications Tubal Sterilization Discharge Date Comments 9 true Discharge Information Feeding Method Contraceptive Method Maternal HG B and HCT Levels Ob Episode Information Episode Created Date Number of Fetuses Patient Bloodtype Patient rh Status Prepregnancy Weight lbs Domestic Partner Domestic Partner Phone Father Name Care Transition Manager Status 08/04/20 24 1 CLOSED Fetus Data First Name Last Name Admitted to NICU Weight (g) Sex Living Outcome Pediatric Complications Fetus ID Race Codes Race Delivery Type 3742.13 4 F Prematur e [id number] Primary Francisco Calculation Initial Francisco Date Initial Exam Date Initial Exam Provider Initial Ultrasound Date Last Menstrual Period Date Ultra Sound Weeks Gestation 0 Eighteen To Twenty Week Francisco Update Ultra Sound Date Fundal Height At Umbil Quickening Date Ultra Sound Latest Weeks Gestation Final Francisco Confirmed By Final Francisco Confirmed Date Final Francisco Date Ultra Sound Latest Days Gestation 0 0 Menstrual History Last Menstrual Date Menses Monthly On Bcp Conception Prior Menses Frequency Hcg Plus Date Menarche Onset Age Delivery Information Delivery Date Delivery Type Labor Anesthesia Weeks Gestation Incision Type Labor Labor Length Hrs Delivered By Post Complications Tubal Sterilization Discharge Date Comments 1 32 true Discharge Information Feeding Method Contraceptive Method Maternal HG B and HCT Levels
--- OUTSIDE RECORDS SUMMARY | 2025-02-04 19:00 | XMS_ITS | Clinical Summary ---
Author Organization [facility] Address [address] [place] [address] Care Team Providers Care Leather Dresser Name Role Phone Miriam Marcelino Primary Care Provider [phone] Source Comments [facility],non-owned Affiliates and Associated Physician Practices is amultiple site organization consisting of ambulatory clinics and hospital sitesin [place], [place], [place] and [place]. This disclosure is being madepursuant to the Care Everywhere program and may not contain all information available regarding this patient. 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 Family History Medical History Relation Name Comments Asthma Neg Hx CVA Neg Hx Cancer - Breast Neg Hx Cancer - Other Neg Hx Cancer - Skin, Melanoma Neg Hx Cancer - Skin, Non Melanoma Neg Hx Eczema Neg Hx Hemophilia Neg Hx Psoriasis Neg Hx Social History Tobacco Use Types Packs/Day Years [...] 04/30/2022 2:48 PM CDT Plan of Treatment Health Maintenance Due Date Last Done Comments PAP SMEAR 1991 HEPATITIS C SCREENING 02/05/2009 DTAP/TDAP/TD VACCINES (1 - Tdap) 2010 HEPATITIS B VACCINE (1 of 3 - 19+ 3-dose series) 2010 COVID-19 VACCINE ( - 2023-2 5 season) 2024 12/10/2021, 11/19/2021 INFLUENZA VACCINE (#1) 2024 DEPRESSION SCREENING 11/21/2024 ZOSTER VACCINE (1 of 2) 2041 HIV SCREENING Completed 04/30/2022 HIB VACCINE Aged Out No longer eligi ble based on patient's age to complete this topic HPV VACCINE Aged Out No longer eligi ble based on patient's age to complete this topic MENINGOCOCCAL (Group B) VACCINE SHARED DECISION-MAKING Aged Out No longer eligible based on patient's age to complete this topic MENINGOCOCCAL GROUPS A/C/Y/W VACCINE Aged Out No longer eligible b ased on patient's age to complete this topic PNEUMOCOCCAL VACCINE Aged Out No long er eligible based on patient's age to complete this topic Procedures Procedure Name Priority Date/Time Associated Diagnosis Comments HIV-1 HIV-2 ANTIBODY + HIV P24 AG PANEL STAT 04/30/2022 6:34 PM CDT from Last 3 Months or Most Recently Relevant to Health Maintenance Results * HIV-1 HIV-2 ANTIBODY + HIV P24 AG PANEL (04/30/2022 6:34 PM CDT) HIV Antigen/Antibod y 1 & 2 Non-reacti ve Non-react tania 04/30/2022 8:07 PM CDT [facility] Comment:No Laboratory eviden ce of HIV infection. Blood BLOOD SPECIMEN / Unknown Venipuncture / Unknown 04/30/2022 6:34 PM CDT 04/30/2022 6:38 PM CDT Renato Parr MD LAB - CHEMISTRY ORDERABLES Performing Organization Address City/State/[place]UST Co de Phone Number [facility] [address] [place] [address], [facility] [phone] from Last 3 Months or Most Recently Relevant to Health Maintenance Care Teams Leather Dresser Relationship Specialty Start Date End Date Miriam Marcelino PA [address] [place] [address] PCP - General 10/21/18
--- OUTSIDE RECORDS SUMMARY | 2025-02-04 19:00 | XMS_ITS | Data Portability ---
Author Organization [facility] [address] [facility] [facility] [place] [address] Care Team Providers Care Drafter Geophysical Name Role Phone MIRIAM MARCELINO Primary Care Provider GONZALES Macdonald Supervisor Underwriting Clerks Assessment No assessment recorded. Plan of Treatment Reminders Order Date Submit Date Provider Last Modified By Organization Details Last Modified Time Details Appointments None record ed. Lab bacter ial vagino sis + vagini tis panel, vagina l 2017 018 [facility], [address] [facility], [place], [address], 8 16:37:13 Referral dermat ologis t referr al 2017 018 [email or web address] [facility], [address] [place], [address], 8 09:24:47 Procedures None record ed. Surgeries None record ed. Imaging None record ed. Medication Orders flucon azole 150 mg tablet 2017 018 [facility]39, [address] [facility], [place], [place], [id number], 8 14:38:59 docusa te sodium 100 mg capsul e 2017 018 [facility] #[id number], [address] [facility], [place], [place], [id number], 8 17:00:43 raniti dine 150 mg tablet 2017 018 susan rivas [facility] #38903, [address], [place], [place], [id number], 8 14:27:02 spiron olacto ne 100 mg tablet 2016 017 [facility] #[id number], [address], [place], [place], [id number], 8 14:28:36 FE 12/10 (28) 1 mg-20 mcg (21)/7 5 mg (7) tablet 2016 017 [facility] #[id number], [address] [facility], [place], [place], [id number], 8 15:53:00 Patient TargetsNo targets recorded. Patient Instructions Encounter Date Encounter Id Patient Instructions Last Modified By Organization Details Last Modified Time 08/22/2017 [id number] polycystic ovary syndrome: care instructions [email or web address] Not available 08/23/2017 08:09:29 01/10/2018 [id number] constipation: care instructions [email or web address] Not available 01/10/2018 17:00:38 high-fiber diet: care instructions jdeyto Not available 01/10/2018 17:00:38 knee program exercises jdeyto Not available 01/10/2018 17:22:40 Bring food/exercise journal to clinic for review in 1-2 weeks. 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 Referral for F emale hirsutism Female hirsutism Referring Physician: Gonzales Tapia, [employer], Encounter Date: 01/10/2018 Results Created Date Observation Date Name Description Value Unit Range Abnormal Flag Note LastModifiedBy Organization Detail LastModifiedTime 01/10/20 18 01/12/2018 bacte rial vagin osis + vagin itis panel , vagin al atopobium vaginae Low - 0 score Not Available [facility] ([facility]) [address] [facility], [place], [address], 01/12/2018 16:37:12 01/10/20 18 01/12/2018 bacte rial vagin osis + vagin itis panel , vagin al bvab 2 Low - 0 score Not Available [facility] ([facility]) [address] [facility], [place], [address], 01/12/2018 16:37:12 01/10/20 18 01/12/2018 bacte rial vagin osis + vagin itis panel , vagin al megasphaera 1 Low - 0 score Calcu late total score by reginaldo hutchison the 3 indiv idual bacte rial vagin osis (BV) marke r score s toget her. Total score is inter prete d as follo ws: Total score 0-1: Indic ates the absen ce of BV. Total score 2: Indet ermin ate for BV. Addit ional clini paty data shoul d be evalu ated to estab daniel a diagn osis. Total score 3-6: Indic ates the prese nce of BV. This test was devel oped and its perfo rmanc e bambi cteri stics deter mined by [facility]. It has not been clear ed or appro dipti by the Food and Drug Admin istra tion. The FDA has deter mined that such clear ance or appro jenny is not neces evelina. Not Available [facility] ([facility]) [address] [facility], [place], [address], 01/12/2018 16:37:12 01/10/20 18 01/12/2018 bacte rial vagin osis + vagin itis panel , vagin al tej albicans, WM Negati ve negati ve Not Available [facility] ([facility]) [address] [facility], [place], [address], 01/12/2018 16:37:12 01/10/20 18 01/12/2018 bacte rial vagin osis + vagin itis panel , vagin al tej glabrata, WM Negati ve negati ve This test was devel jonyed and its perfo rmanc e bambi cteri stics deter mined by [facility]. It has not been clear ed or appro dipti by the Food and Drug Admin istra tion. The FDA has deter mined that such clear ance or appro jenny is not neces evelina. Not Available [facility] ([facility]) [address] [facility], [place], [address], 01/12/2018 16:37:12 01/10/20 18 01/12/2018 bacte rial vagin osis + vagin itis panel , vagin al trich vag by WM Negati ve negati ve Not Available [facility] ([facility]) [address] [facility], [place], [address], 01/12/2018 16:37:12 01/10/20 18 01/12/2018 bacte rial vagin osis + vagin itis panel , vagin al chlamydia trachomatis, WM Negati ve negati ve Not Available [facility] ([facility]) [address] [place], [address], 01/12/2018 16:37:12 01/10/20 18 01/12/2018 bacte rial vagin osis + vagin itis panel , vagin al neisseria gonorrhoeae, WM Negati ve negati ve Not Available [facility] ([facility]) [address] [place], [address], 01/12/2018 16:37:12 10/19/20 18 10/19/2018 XR, chest , 2 view No observ ation record ed. jdeyto [facility] [address], [place], [address], 10/19/2018 13:25:28 Result Notes None recorded. Problems Name Problem SNOMED Code Status Onset Date Resolution Date Notes Provider Name and Address Organization Details Recorded Time Constipation 71325956 Active 2017 Miriam Marcelino PA-C Attn: Xu hutchison,[address] [facility], [place], [address], [facility] 8 17:17:36 No current problems or disability 075114539 Active Latrell Guerra PA-C Attn: Accountoli g,[address] [facility], [place], [address], [facility] 5 12:21:50 Gastroesophage al reflux disease without esophagitis 915583889 Active 2016 Miriam Marcelino PA-C Attn: Xu hutchison,[address] [facility], [place], [address], [facility] 7 15:44:38 Hirsutism 757236988 Active 2016 Miriam Marcelino PA-C Attn: Xu g,[address] [facility], [place], [address], [facility] 7 15:44:40 Flatulence, eructation and gas pain 596985997 Active 2016 Miriam Marcelino PA-C Attn: Xu hutchison,[address] [facility], [place], [address], [facility] 7 15:44:51 Problem Notes None recorded. Procedures Surgical History Date Name Laterality Status Provider Name and Address Organization Details Recorded Time 7 Date of Last Pap Smear completed Vanna Bland [place] [facility] 08/22/2017 14:34:58 1 Caesarean Section completed Teri Cole [place] [facility] 02/07/2017 14:14:45 Remove tonsils and adenoids completed Miriam Marcelino PA-C Attn: Accounting,[address] [facility], [place], [address], [facility] 02/07/2017 17:11:46 Imaging Results Imaging Date Name Status LastModified by Organiz ation Details LastModified Time 10/19/2018 XR, chest, 2 view completed jdeyto [facility] [address] [place], [address], 10/19/2018 13:25:28 Procedure Notes None recorded. Medical Equipment None Reported. Allergies Allergen ID Allergen Name Allergen Category Reaction Reaction Severity Criticality Documentation Date Start Date Code Code System Note Provider Name and Address Organization Details Recorded Time 76163 Substance with sulfonami de structure and antibacte rial mechanism of action (substanc e) medicatio n anaphylax is severe Not available 03/05/2015 [id number] 7265 SNOMED Not Available Not Available Not Available Medications Name Sig Start Date Stop Date Status Note LastModified by Organization Details LastModified Time cyclobenzap rine 10 mg tablet 03/07 completed Not Available Not Available Not Available amoxicillin 500 mg capsule 03/07 completed Not Available Not Available Not Available doxycycline hyclate 100 mg capsule active Not Available Not Available N ot Available ibuprofen 800 mg tablet 03/07 completed Not Available Not Available Not Available fluconazole 150 mg tablet Take 1 tablet by oral route. active Not Available Not Available No t Available metronidazo le 0.75 % (37.5 mg/5 gram) vaginal gel 07/19 completed Not Available Not Available Not Available spironolact one 100 mg tablet Take 1 tablet twice a day by oral route. 07/19 completed Not Available Not Available Not Available metronidazo le 500 mg tablet active Not Available Not Available Not Available acetaminoph en 300 mg-codeine 30 mg tablet 03/07 completed Not Available Not Available Not Available ciprofloxac in 500 mg tablet 01/10 completed Not Available Not Available Not Available triamcinolo ne acetonide 0.1 % topical cream APPLY A THIN LAYER TO THE AFFECTED AREA(S) BY TOPICAL ROUTE 2 TIMES PER DAY 01/10 completed Not Available Not Available Not Available amoxicillin 875 mg tablet 08/22 completed Not Available Not Available Not Available DOK 100 mg capsule Take 1 capsule every day by oral route. active Not Available Not Available No t Available phenazopyri dine 100 mg tablet 07/19 completed Not Available Not Available Not Available ranitidine 150 mg tablet Take 1 tablet twice a day by oral route. 03/07 completed Not Available Not Available Not Available loratadine 10 mg tablet Take 1 tablet every day by oral route as needed. 01/10 completed Not Available Not Available Not Available 12/10 (28) 1 mg-20 mcg (21)/75 mg (7) tablet Take 1 tablet every day by oral route. 01/10 completed Not Available Not Available Not Available erythromyci n with ethanol 2 % topical solution 07/19 completed Not Available Not Available Not Available nitrofurant oin monohydrate /macrocryst als 100 mg capsule 07/19 completed Not Available Not Available Not Available ProAir HFA 90 mcg/actuati on aerosol inhaler active Not Available Not Available Not Available Alive Women Gummy Vit(choline ) 08/22 completed Not Available Not Available Not Available Vitals Date Recorded Body height Body mass index (BMI) Body weight Systolic blood pressure Diastolic blood pressure Provider Name and Address Organization Details Last Updated DateTime 01/10/2018 167.64 cm 35.2 kg/m2 65747.42 g 104 mm[Hg] 74 mm[Hg] Elmira Reina [facility] 8 15:50:08 Date Recorded Body height Body mass index (BMI) Body weight Heart rate Respiratory rate Body temperature Oxygen saturation Oxygen saturation in Arterial blood by Pulse oximetry Systolic blood pressure Diastolic blood pressure Provider Name and Address Organization Details Last Updated DateTime 8 167.64 cm 35.2 kg/m2 04578.7 8 g 67 /min 12 /min 98 [degF] 100 % 100 % 108 mm[Hg] 78 mm[Hg] HOPE Pathak [facility] 8 16:45:14 Date Recorded Body height Body mass index (BMI) Body weight Heart rate Respiratory rate Body temperature Oxygen saturation Oxygen saturation in Arterial blood by Pulse oximetry Systolic blood pressure Diastolic blood pressure Provider Name and Address Organization Details Last Updated DateTime 8 167.64 cm 35.1 kg/m2 39564.3 4 g 86 /min 14 /min 98.3 [degF] 100 % 100 % 120 mm[Hg] 76 mm[Hg] Madeline stauffer MA [facility] 8 14:29:53 Date Recorded Body height Body mass index (BMI) Body weight Systolic blood pressure Diastolic blood pressure Provider Name and Address Organization Details Last Updated DateTime 07/19/2018 167.64 cm 34.1 kg/m2 81352.71 g 110 mm[Hg] 68 mm[Hg] Elmira Reina [facility] 8 14:25:50 Date Recorded Body height Body mass index (BMI) Body weight Systolic blood pressure Diastolic blood pressure Provider Name and Address Organization Details Last Updated DateTime 08/22/2017 167.64 cm 31.9 kg/m2 74431.85 g 110 mm[Hg] 70 mm[Hg] Vanna Bland [facility] 7 14:39:17 Date Recorded Body height Body mass index (BMI) Body weight Heart rate Respiratory rate Body temperature Oxygen saturation Oxygen saturation in Arterial blood by Pulse oximetry Systolic blood pressure Diastolic blood pressure Provider Name and Address Organization Details Last Updated DateTime 7 167.64 cm 32 kg/m2 10132.0 9 g 91 /min 16 /min 97.9 [degF] 100 % 100 % 114 mm[Hg] 72 mm[Hg] HOPE [facility] 7 15:27:59 Social History Question Answer Notes LastModified by Organizat ion Details LastModified Time Tobacco Smoking Status Former Smoker quit [phone] Miriam Marcelino PA-C Attn: [place], [address], [facility] 02/07/2017 14:34:36 Do You Have An Advance Directive? No Information not available 08/22/2017 What Is Your Level Of Alcohol Consumption? Occasional Wine Information not available 08/22/2017 Are You Blind Or Do You Have Difficulty Seeing? No Information not available 08/22/2017 Is Blood Transfusion Acceptable In An Emergency? Yes Information not available 08/22/2017 What Is Your Level Of Caffeine Consumption? None Information not available 02/07/2017 How Much Tobacco Do You Chew? None Information not available 08/22/2017 Are You Currently Employed? Yes Information not available 08/22/2017 Are You Deaf Or Do You Have Serious Difficulty Hearing? No Information not available 08/22/2017 What Type Of Diet Are You Following? REGULAR Information not available 02/07/2017 Which Illicit Or Recreational Drugs Have You Used? 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 No Information not available 02/07/2017 Hard Of Hearing Or Deaf In One Or Both Ears? No Information not available 02/07/2017 Legally Blind In One Or Both Eyes? No Information not available 02/07/2017 Live Alone Or With Others? With Others Information not available 08/22/2017 Marital Status Informatio n not available 08/22/2017 What Was The Date Of Your Most Recent Tobacco Screening? 07/19/2018 Information not available 06/14/2019 How Many Children Do You Have? 2 Information not available 08/22/2017 Performs Monthly Self-breast Exam? Yes Information not available 02/07/2017 Do You Use Protection During Sex? Always Information not available 08/22/2017 What Is Your Relationship Status? Information not available 08/22/2017 Seat Belts Used Routinely Yes Information not available 02/07/2017 Are You Sexually Active? Yes Information not available 08/22/2017 Smoke Alarm In Home Yes Information not available 02/07/2017 How Much Tobacco Do You Smoke? No Information not available 02/07/2017 General Stress Level Medium Information not available 02/07/2017 Sex: Unknown Functional Status Question Answer Note LastModified by Organizat ion Details LastModified Time Do you have difficulty walking or climbing stairs? No Information not available 08/22/2017 Do you have difficulty doing errands alone? No Information not available 08/22/2017 Do you have difficulty dressing or bathing? No Information not available 08/22/2017 What is your exercise level? Occasional Information not available 02/07/2017 Mental Status Question Answer Note LastModified by Organization D etails LastModified Time Do you have difficulty concentrating, remembering or making decisions? No Information no t available 08/22/2017 Family History Relationship Description Onset Age of this Age Resolved Age Notes LastModified by Organization Details LastModified Time Maternal Grandfather Malignant tumor of colon Not available 2016 14:46:00 Medical History Condition Response Other N High Blood Pressure N Breast Cancer N Depression N Blood Clots N Lung Disease N Breast Problem N Anesthesia Complications N Headaches/Migraines Y Anxiety Disorder N Muscle, Joint, or Bone Problems N Polyps N Infertility N Acid Reflux (GERD) Y Cancer N Endometriosis N High Cholesterol N Liver Disease N Thyroid Problems Y Kidney or Bladder Problems Y GI Problems N Acne Y Eating Disorder N Anemia N Diabetes N Ovarian Cancer N Blood Transfusions N Seizures/Epilepsy N Abuse/Domestic Violence N Asthma N Hepatitis N Heart Disease N Pre-Eclampsia N Osteoporosis N Gynecological History Statement/Question Response Flow Heavy On BCP's at Conception? Y STIs/STDs N HPV Vaccine Y Duration of Flow (days) 3 Age at Menarche 12 Current Control Method None Age at First Child 19 Frequency of Cycle (Q days) 28 Sexually Active? Y Menses Monthly Y Date of Last Pap Smear 03/08/2017 Sexual Problems? N LMP Definite Desired Control Method None Obstetrics History GPAL:G 3 P 1 1 0 2 Type Value Multiple Births 0 Full Term 1 Induced 0 Spontaneous 0 Premature 1 Living 2 Ectopics 0 Total 3 Immunizations Vaccine Type Date Status Note Provider Nam e and Address Organization Details Recorded Time tetanus toxoid, unspecified formulation 06/21/2016 completed L[place]AS [place] 02/07/2017 14:18:03 Past Encounters Encounter ID Performer Location Encounter Start Date Encounter Closed Date Diagnosis/Indication Diagnosis SNOMED-CT Code Diagnosis ICD10 Code Diagnosis Note [id number] [facility] [address] [place] [address] 03/05/2015 12:00:46 03/05/2015 12:23:35 Venereal disease screening [id number] JONH Amin (Adult Med) [address] [facility] [address] 02/07/2017 14:00:21 02/08/2017 13:08:52 Hirsutism 022372202 L68.0 check labs & ultrasound first. Consider starting spironolat one. On depo-prove ra shots. r/o PCOS Gastroesop hageal reflux disease without esophagitis 883339161 K21.9 start medication to see if this helps sxs of bloating, Chronic constipation 236 982455 K59.00 discussed constipati on sxs and ways to improve them. Overweight 719594717 E66 .3 BMI 31, dwp eating regularly rather than one meal a day. Increase activity, goal weight 175lbs. Increased frequency of urination 166862981 R35.0 present for at least a year. treat constipati on first, re-eval at f/u. [id number] JOHN Amin (Adult Med) [address] [place] [address] 03/07/2017 14:38:01 03/09/2017 08:55:43 Contact dermatitis 35304165 L25.9 Patient instructed to stop using new lotion/soa ps that she applies all over the body. Use triamcinol one, but avoid using to face. start benadryl or claritin daily for itching. Flatulence , eructation and gas pain 772353853 R14.2 patient instructed to take ranitidine BID daily for the next 2 weeks. It may also help with rash/aller gy sxs. Chronic constipation 236 212425 K59.00 cont PRN use of stool softeners and high fiber diet. Hirsutism 424490266 L68. 0 reviewed labs & ultrasound with patient. She would prefer to see gynecologi st [facility]. [id number] Gonzales Vogel ([employer]) [address] [place] [address] 08/22/2017 14:22:51 08/24/2017 16:03:38 Oral contraceptive prescribed 530483488 Z30.011 Diagnosis d/w pt. Rx sent to pharmacy. Nickie morse discussed. Female hirsutism 3352741 9 L68.0 Diagnosis d/w pt. Rx sent to pharmacy. Nickie morse discussed. Need for good control while taking this medication discussed. Anti-testo sterone effect on male fetus discussed. Pt. agreed to stay on control. Polycystic ovaries 57250 008 E28.2 Criteria for PCOS discussed. Need to 2 of 3 criteria for diagnosis discussed. Inability to discuss current frequency of periods d/t Depo shot discussed. She does not meet ultrasound criteria, dwp. Excess testostero ne in the blood is from the adrenal gland, not the ovary. The diagnosis is likely but not able to be proven at this time. However, pt. does need control and does have hirsutism. Therefore, will suppress ovaries with OCPs and treat hirsutism with Spironolac tone, dwp. See below. [id number] JOHN Amin (Adult Med) [address] [place] [address] 08/22/2017 15:15:13 08/22/2017 17:07:19 Gastroesophageal reflux disease without esophagitis 126531586 K21.9 Controlled w/ diet and medication PRN. discussed weight loss to control/pr event sxs as well. Flatulence , eructation and gas pain 189230556 R14.2 possibly due to recent abx use, start probiotics and/or eat yogurt w/ active cultures. Hirsutism 094239787 L68. 0 start OCP and spironolac tone today; pt instructed to call if she feels any sxs of lightheade dness or dizziness with diuretic use. Body mass index 30+ - obesity 599140828 Z68.32 reviewed prior weight/BMI in chart. discussed weight loss goal of 20 lbs to get back to 175lbs through diet & exercise, cont low carb and low fat diet. Vaccine de clined by patient 4924365482 02 Z28.21 patient refused flu shot this year. dwp if she changes her mind she can return to clinic at anytime. [id number] Gonzales Tapia Jaspreet MEADOWS ([employer]) [address] [place] [address] 01/10/2018 15:05:46 03/10/2018 10:58:39 Vaginal discharge 454717931 N89.8 Normal exam d/w pt. Culture sent. Female hirsutism 6097787 9 L68.0 Pt. refuses spirololac tone. She has decided she does nto want to take OCPs and therefore does not want to take spironolac tone. She wants a cream for her excessive hair growth. Will refer to dermatolog y, dwp. [id number] JOHN Amin (Adult Med) [address] [place] [address] 01/10/2018 16:38:24 01/13/2018 14:38:33 Constipation 07992819 K59.00 Stools 1, 2 on [facility] stool chart. likely cause of intermitte nt abdominal pains, recommend starting fiber supplement , stool softener and increase fiber in diet, given list of foods. Pain in left knee 458139 4075 89561 M25.562 likely strain from overuse w/ new exercise routine. given AAOS knee conditioni ng exercises to start at home. discussed R.I.C.E and limiting knee bend so that knee doesn't go over toes when doing squats. Gastroesop hageal reflux disease without esophagitis 418675747 K21.9 reports has daily sxs, no longer taking ranitidine , wasn't sure if it was causing her abdominal pains. dwp that it is not causing the pains, restart medication Body mass index 30+ - obesity 636066293 Z68.32 20lb weight gain since last visit. patient instructed to start food journal, write down all intake including drinks. also write down exercise type, for how long and how often to see if weight gain is due to excessive caloric intake. Bring 1-2 week journal back to clinic. [id number] JOHN Amin (Adult Med) [address] [place] [address] 03/07/2018 14:09:41 03/08/2018 10:34:05 Body mass index 30+ - obesity 124298339 Z68.32 Increase activity. Start 1800 paty diet. work on 1-2 lb weight loss per week. Constipation 91478844 K5 9.00 Cont stool softener, increase fiber in diet, start fiber supplement . [id number] Gonzales Tapia Jaspreet ([employer]) [address] [place] [address] 07/19/2018 14:06:23 07/20/2018 14:48:38 Candidal vulvovaginitis 08865074 B37.3 Diagnosis d/w pt. Rx sent to pharmacy. Instructio mini discussed. Health Concerns Section Related Observation LastModified by Organization Detai ls LastModified Time None Recorded Concern Status LastModified by Organization Details LastModified Time None Recorded Advance Directives Directive N: Payers Encounter Date Sequence Insurance Name Policy Number Policy Jameson Covered Member ID Jameson Member ID Guarantor Name 08/22/2017 1 [facility] PRIOR TO 05/21/2021 (MEDICAID REPLACEMENT - HMO) Tamara Meade [id number] Tamara Meade 01/10/2018 1 [facility] PRIOR TO 05/21/2021 (MEDICAID REPLACEMENT - HMO) Tamara Meade [id number] Tamara Meade 01/10/2018 1 [facility] PRIOR TO 05/21/2021 (MEDICAID REPLACEMENT - HMO) Tamara Meade [id number] Tamara Meade 03/07/2018 1 [facility] PRIOR TO 05/21/2021 (MEDICAID REPLACEMENT - HMO) Tamara Meade [id number] Tamara Meade 07/19/2018 1 [facility] PRIOR TO 05/21/2021 (MEDICAID REPLACEMENT - HMO) Tamara Meade [id number] Tamara Meade Notes Date Note Type Note Provider Name and Address Organization Details Recorded Time 08/22/2017 text/html Pt. presents at the request of her PCP for evaluation of possible PCOS d/t hirsutism and elevated testosterone in the setting of a normal pelvic ultrasound. Pt. reports hair growth on the chest, abdomen, upper lip, and upper thighs. She does nto have periods d/t the Depo shot. However, they were irregular even before starting the Depo shot. Her last shot was 4 mo. ago. Gonzales JACQUES Martinez - SIF 08/22/2017 17:48:37 08/22/2017 text/html Reflux/GERDRepor jojo bypatient.Symptomshe artburn Quality:burning Severity:improving (used ranitidine for few weeks then PRN and felt it helped, would like refills) Duration:present 1-4 years Onset/Timing:gradual onset; occasional Context:non-smoker; no drug/alcohol abuse;related to spicy foods(has cut most of this out of diet) Alleviating Factors:medication (ranitidine); non-spicy foods Aggravating Factors:worsened by food Associated Symptoms:no frequent coughing; no feeling of fullness/mass in throat; no hoarseness; no food getting stuck; no nausea; no vomiting; no regurgitation; no shortness of breath; no chest pain; no difficulty swallowing; no decreased appetite; no weight loss; no black/tarry stools; no throat pain;belching/burpin g(occasional, tastes sour) saw Dr. Tapia earlier and starting OCP and spironolactone for her hirsuitism.Pt thinks 20 lb weight gain fro 2014 to 2016 was from Depo shots. She is staying active, trying to reduce carbs. [place] [facility] [place] and given abx recently.has had stomach bloating in last few weeks. no increase in fiber in diet. Miriam Marcelino PA-C Attn: [address] [place], [address], [facility] 08/22/2017 15:48:13 01/10/2018 text/html Pt. presents wit h c/o vulvar itching. She thinks she has a yeast infection. She also Gonzales [facility], [facility] 03/08/2018 15:09:31 01/10/2018 text/html PCOS: taking OCP , Rx spironolactone but got stomach pains & stopped it.Gets recurrent pains, lasts a few minutes then goes away and ok for few days then can come back. denies any gas sxs. Acid reflux w/ eating. eats 2-3 meals a day.Reports BMs are 1 and 2 on [facility] stool chart weight gain in last 2 mos. stopped dep shots 6mo ago. always hungry. reduced pastas & bread. trying to exercise. Left knee pain recently, feels like walking through water. Bending hurts, tight. not painful to walk. Miriam Marcelino PA-C Attn: [address] [facility], [place], [address], [facility] 01/10/2018 17:26:58 03/07/2018 text/html knee pain is bet ter. numbness to legs when sitting too long. easy bruising comes & goes, was taking ibuprofen for tooth pain stool softeners aren't helping as well, BMs are still not easy. fruit & fruit smoothy w/ flax seed, lunch sandwich, rarely eats dinner. 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 increased stress, father of her kids and everything is on her. since she stopped Depo shot she seemed to gain weight. considering going back on that. Miriam Marcelino PA-C Attn: Accounting[address] [facility], [place], [address], [facility] 03/08/2018 00:05:41 07/19/2018 text/html Pt presents with c/o thick white d/c and itching. [place] Tap[place], [place] - [facility] 07/19/2018 16:35:15 OBGyn Episode Ob Episode Information Episode Created Date Number of Fetuses Patient Bloodtype Patient rh Status Prepregnancy Weight lbs Domestic Partner Domestic Partner Phone Father Name Homicide Investigator Status 08/22/20 17 1 CLOSED Fetus Data First Name Last Name Admitted to NICU Weight (g) Sex Living Outcome Pediatric Complications Fetus ID Race Codes Race Delivery Type 1474.17 4 F Prematur e [id number] Vaginal Francisco Calculation Initial Francisco Date Initial Exam [...] Complications Tubal Sterilization Discharge Date Comments 9 Regional- idural 29 true Discharge Information Feeding Method Contraceptive Method Maternal HG B and HCT Levels Ob Episode Information Episode Created Date Number of Fetuses Patient Bloodtype Patient rh Status Prepregnancy Weight lbs Domestic Partner Domestic Partner Phone Father Name Homicide Investigator Status 08/22/20 17 2 CLOSED Fetus Data First Name Last Name Admitted to NICU Weight (g) Sex Living Outcome Pediatric Complications Fetus ID Race Codes Race Delivery Type [id number] [phone] F Full Term [id number] after attempted Francisco Calculation Initial Francisco Date Initial Exam [...] Complications Tubal Sterilization Discharge Date Comments 1 Regional- idural 38 false 12 Discharge Information Feeding Method Contraceptive Method Maternal HG B and HCT Levels
--- OUTSIDE RECORDS SUMMARY | 2025-02-04 19:00 | XMS_ITS | Continuity of Care Document ---
[facility] Organization [facility] Address [address] [place] [address] Phone Care Team Providers Care Imaging Science Professor Name Role Phone Harrison BOWMAN, Julieta Unavailable Unavailable Allergies, Adverse Reactions, Alerts Substance Reaction Status Criticality Sulfa (Sulfonamide Antibiotics) Active No Information Medications Medication Instructions Dosage Effective Dates (start - stop) Status Comments fluconazole 150 mg tablet take 1 tablet by oral route once 150 MG - Active naproxen 500 mg tablet take 1 tablet by oral route 2 times every day with food as needed for pain - Active Vitamin D3 50 mcg (2,000 unit) capsule Take 1 capsule po q day ( after the high dose Vitamin D) - Active Vitamin D2 1,250 mcg (50,000 unit) capsule Take 1 tablet po once a week X 8 weeks - Active Problems Condition Type Effective Dates (start - stop) Clini paty Status Comments No Known Problems Procedures Procedure Date URINALYSIS, AUTO, W/O SCOPE OFFICE/OUTPATIENT VISIT, EST TOBACCO NON-USER SYST BP LT 130 MM HG Sys bp less 140 DIAST BP < 80 MM HG Deleon bp less 90 [facility] MED/CURRENT MED MERGE LDL-C <100 MG/DL WEIGHT RECORD BODY MASS INDEX DOCD OFFICE/OUTPATIENT VISIT, EST TOBACCO NON-USER SYST BP LT 130 MM HG Sys bp less 140 DIAST BP < 80 MM HG Deleon bp less 90 [facility] MED/CURRENT MED MERGE LDL-C <100 MG/DL WEIGHT RECORD BODY MASS INDEX DOCD Resin-Based Composite-Two Surfaces, Post erior Handling and/or conveyance of specimen M Obtaining screen pap smear OFFICE/OUTPATIENT VISIT, EST TOBACCO NON-USER SYST BP LT 130 MM HG Sys bp less 140 DIAST BP < 80 MM HG Deleon bp less 90 [facility] MED/CURRENT MED MERGE LDL-C <100 MG/DL WEIGHT RECORD BODY MASS INDEX DOCD OFFICE/OUTPATIENT VISIT EST TOBACCO NON-USER [facility]RG MED/CURRENT MED MERGE LDL-C <100 MG/DL WEIGHT RECORD BODY MASS INDEX DOCD Resin-Based Composite-Two Surfaces, Post erior Handling and/or conveyance of specimen M URINALYSIS, AUTO, W/O SCOPE OFFICE/OUTPATIENT VISIT, EST TOBACCO NON-USER SYST BP LT 130 MM HG Sys bp less 140 DIAST BP < 80 MM HG Deleon bp less 90 [facility] MED/CURRENT MED MERGE LDL-C <100 MG/DL WEIGHT RECORD BODY MASS INDEX DOCD OFFICE/OUTPATIENT VISIT, EST TOBACCO NON-USER SYST BP LT 130 MM HG Sys bp less 140 DIAST BP < 80 MM HG Deleon bp less 90 LDL-C <100 MG/DL WEIGHT RECORD BODY MASS INDEX DOCD Resin-Based Composite-Three Surfaces, Po sterior OFFICE/OUTPATIENT VISIT, EST TOBACCO NON-USER SYST BP LT 130 MM HG Sys bp less 140 DIAST BP < 80 MM HG Deleon bp less 90 LDL-C <100 MG/DL WEIGHT RECORD BODY MASS INDEX DOCD Resin-Based Composite-Two Surfaces, Post erior OFFICE/OUTPATIENT VISIT EST TOBACCO NON-USER [facility]RG MED/CURRENT MED MERGE LDL-C <100 MG/DL WEIGHT RECORD BODY MASS INDEX DOCD Prophylaxis-Adult Topical Application Of Fluoride 024 Nutritional Counseling For Control Of De ntal Disease Oral Hygiene Instructions Intraoral-Complete Series Of Radiographi c Images Comprehensive Oral Evaluation-New Or Est ablished P All Molars Not Sealable OFFICE/OUTPATIENT VISIT EST TOBACCO NON-USER [facility] MED/CURRENT MED MERGE LDL-C <100 MG/DL WEIGHT RECORD BODY MASS INDEX DOCD URINALYSIS, AUTO, W/O SCOPE OFFICE/OUTPATIENT VISIT, EST TOBACCO NON-USER SYST BP LT 130 MM HG Sys bp less 140 DIAST BP < 80 MM HG Deleon bp less 90 [facility] MED/CURRENT MED MERGE LDL-C <100 MG/DL WEIGHT RECORD BODY MASS INDEX DOCD OFFICE/OUTPATIENT VISIT EST TOBACCO NON-USER DSCHRG MED/CURRENT MED MERGE LDL-C <100 MG/DL WEIGHT RECORD BODY MASS INDEX DOCD OFFICE/OUTPATIENT VISIT, EST TOBACCO NON-USER SYST BP LT 130 MM HG Sys bp less 140 DIAST BP < 80 MM HG Deleon bp less 90 [facility] MED/CURRENT MED MERGE LDL-C <100 MG/DL WEIGHT RECORD BODY MASS INDEX DOCD OFFICE/OUTPATIENT VISIT EST TOBACCO NON-USER DS[facility]RG MED/CURRENT MED MERGE LDL-C <100 MG/DL WEIGHT RECORD BODY MASS INDEX DOCD URINALYSIS, AUTO, W/O SCOPE OFFICE/OUTPATIENT VISIT, EST TOBACCO NON-USER SYST BP LT 130 MM HG Sys bp less 140 DIAST BP < 80 MM HG Deleon bp less 90 [facility] MED/CURRENT MED MERGE LDL-C <100 MG/DL WEIGHT RECORD BODY MASS INDEX DOCD OFFICE/OUTPATIENT VISIT EST TOBACCO NON-USER [facility] MED/CURRENT MED MERGE LDL-C <100 MG/DL WEIGHT RECORD BODY MASS INDEX DOCD OFFICE/OUTPATIENT VISIT EST TOBACCO NON-USER [facility] MED/CURRENT MED MERGE LDL-C <100 MG/DL WEIGHT RECORD BODY MASS INDEX DOCD URINALYSIS, AUTO, W/O SCOPE OFFICE/OUTPATIENT VISIT, EST TOBACCO NON-USER SYST BP GE 130 - 139MM HG Sys bp less 140 DIAST BP < 80 MM HG Deleon bp less 90 [facility] MED/CURRENT MED MERGE LDL-C <100 MG/DL WEIGHT RECORD BODY MASS INDEX DOCD OFFICE/OUTPATIENT VISIT EST TOBACCO NON-USER [facility]RG MED/CURRENT MED MERGE LDL-C <100 MG/DL WEIGHT RECORD BODY MASS INDEX DOCD OFFICE/OUTPATIENT VISIT, EST TOBACCO NON-USER SYST BP LT 130 MM HG Sys bp less 140 DIAST BP < 80 MM HG Deleon bp less 90 LDL-C <100 MG/DL WEIGHT RECORD BODY MASS INDEX DOCD Handling and/or conveyance of specimen N OFFICE/OUTPATIENT VISIT, EST TOBACCO NON-USER SYST BP LT 130 MM HG Sys bp less 140 DIAST BP < 80 MM HG Deleon bp less 90 [facility] MED/CURRENT MED MERGE LDL-C <100 MG/DL WEIGHT RECORD BODY MASS INDEX DOCD OFFICE/OUTPATIENT VISIT EST TOBACCO NON-USER LDL-C <100 MG/DL WEIGHT RECORD BODY MASS INDEX DOCD OFFICE/OUTPATIENT VISIT, EST TOBACCO NON-USER SYST BP LT 130 MM HG Sys bp less 140 DIAST BP < 80 MM HG Deleon bp less 90 LDL-C <100 MG/DL WEIGHT RECORD BODY MASS INDEX DOCD Handling and/or conveyance of specimen O Obtaining screen pap smear Handling and/or conveyance of specimen O URINALYSIS, AUTO, W/O SCOPE TOBACCO NON-USER SYST BP LT 130 MM HG Sys bp less 140 DIAST BP < 80 MM HG Deleon bp less 90 [facility] MED/CURRENT MED MERGE LDL-C <100 MG/DL WEIGHT RECORD BODY MASS INDEX DOCD OFFICE/OUTPATIENT VISIT, EST Handling and/or conveyance of specimen O OFFICE/OUTPATIENT VISIT, EST TOBACCO NON-USER SYST BP LT 130 MM HG Sys bp less 140 DIAST BP < 80 MM HG Deleon bp less 90 [facility] MED/CURRENT MED MERGE LDL-C <100 MG/DL WEIGHT RECORD BODY MASS INDEX DOCD URINALYSIS, AUTO, W/O SCOPE REFRACTION EYE EXAM & TREATMENT URINALYSIS, AUTO, W/O SCOPE OFFICE/OUTPATIENT VISIT, EST TOBACCO NON-USER SYST BP LT 130 MM HG Sys bp less 140 DIAST BP < 80 MM HG Deleon bp less 90 [facility] MED/CURRENT MED MERGE LDL-C <100 MG/DL WEIGHT RECORD BODY MASS INDEX DOCD OFFICE/OUTPATIENT VISIT, EST OFFICE/OUTPATIENT VISIT, EST OFFICE/OUTPATIENT VISIT, EST OFFICE/OUTPATIENT VISIT EST OFFICE/OUTPATIENT VISIT, NEW Results Test Name Date and Time Measure Units Reference Range Abnormal Flag Status Comments Panel Description: Urinalysis macro (dipstick) p mary ellen - Urine Final Bilirubin Negative Negative Final Blood Trace-intact Negative Final Clarity Clear Final Glucose Negative mg/dL <100 mg/dL Final Ketones Negative Negative Final Leukocytes Negative Negative Final Nitrite Negative Negative Final PH 5.5 5.0-9.0 Final Protein Negative Negative Final Specirfic [place] 1.030 1.001-1.035 Final Urobilinogen 0.2 E.U./dL 0.2-1.0E.U./ d L Final Advance Directives Directive Yes / No Effective Date File Name No Information Encounters Encounter Description Practice Location Reason(s) For Visit Diagnoses Date Provider Providers Copied on Encounter OFFICE/OUTPA TIENT VISIT, EST [facility], [facility], [place], [place], [address], [place] tel:[phone] [facility] ultrasound result (chief complaint) Encounter to discuss test results [facility], [place], [address], [place]. tel:[phone] OFFICE/OUTPA TIENT VISIT, EST [facility], [address], [place], [place], [address], [place] tel:[phone] [facility] 2 results (chief complaint) Encounter to discuss test results 4 Harrison Pardo [address], [place], [address], [place]. tel:[phone] [facility], [address], [place], [place], [address], [place] tel:[phone] [facility] (chief complaint) Caries 4 William Barnhart. [address], [place], [address], [place]. tel:[phone] OFFICE/OUTPA TIENT VISIT, EST [facility], [address], [place], [place], [address], [place] tel:[phone] [facility] Vaginal discharge x3 weeks (chief complaint) Problematic vaginal dischargeSensat ion of pressure in bladder area 4 Mikal Ledesma. [address] [place], [address], [place]. tel:[phone] [facility], [address], [place], [place], [address], [place] tel:[phone] [facility] Telemedicine (chief complaint)Monica k pain (chief complaint) Chronic midline low back pain with right-sided sciaticaOther chronic pain 4 Jose Cassidy. [address] [place], [address], [place]. tel:[phone] [facility], [address], [place], [place], [address], [place] tel:[phone] [facility] (chief complaint) Caries 4 William Barnhart. [address], [place], [address], [place]. tel:[phone] OFFICE/OUTPA TIENT VISIT, EST [facility], [address], [place], [place], [address], [place] tel:[phone] [facility] 2 vaginal concerns (chief complaint) Vaginal dischargeFemale pelvic pain March-0 4 Harrison Pardo [address], [place], [address], [place]. tel:[phone] OFFICE/OUTPA TIENT VISIT, EST [facility], [address], [place], [place], [address], [place] tel:[phone] [facility] results (chief complaint) Encounter to discuss test results Feb- 4 Marvin Johnson. [address], [place], [place], [address], [place]. tel:[phone] [facility], [address], [address], [place] tel:[phone] [facility] (chief complaint) Caries Feb- 4 William Barnhart. [address], [place], [address], [place]. tel:[phone] OFFICE/OUTPA TIENT VISIT, EST [facility], [address], [place], [place], [address], [place] tel:[phone] [facility] *vaginal discharge (chief complaint) Encntr for culture manager exam (general) (routine) w/o abn findingsVaginal odorContact with and (suspected) exposure to infections with a predominantly sexual mode of transmissionHig h risk sexual behavior, unspecified type Feb-0 4 Marvin Johnson. [address], [place], [place], [address], [place]. tel:[phone] [facility], [address], [place], [place], [address], [place] tel:[phone] [facility] (chief complaint) Caries Feb- 4 William Majanoa. [address], [place], [address], [place]. tel:[phone] [facility], [address], [place], [place], [address], [place] tel:[phone] [facility] Discuss test results (chief complaint)Hari o Video Visit (chief complaint) Low vitamin D levelEncounter to discuss test results 4 Rashaun Powell. [address] [place], [address], [place]. tel:[phone] [facility], [address], [place], [place], [address], [place] tel:[phone] [facility] prophy (chief complaint) Dental caries 4 [facility]. [address], [place], [address], [place]. tel:[phone] [facility], [address], [place], [place], [address], [place] tel:[phone] [facility] Check-up/Marija lee (chief complaint) Dental caries 4 Fletcher Eladia. [address], [place], [address], [place]. tel:[phone] [facility], [address], [place], [place], [address], [place] tel:[phone] [facility] f/u (chief complaint) Other fatigueObesity (BMI 30.0-34.9)Renal cyst, leftBilateral thigh painPain in left thigh 4 Jay Gilliam. [address] [place], [address], [place]. tel:[phone] OFFICE/OUTPA TIENT VISIT, EST [facility], [address], [place], [place], [address], [place] tel:[phone] [facility] incomplete bladder emptying and recurrent UTI (chief complaint) Incomplete bladder emptyingRecurre nt UTIObesity (BMI 30.0-34.9) 4 Jose Khanh. [address] [place], [address], [place]. tel:[phone] [facility], [address], [place], [place], [address], [place] tel:[phone] [facility] Discuss test results (chief complaint)Bee ble to completely empty the bladder (chief complaint)Tel e Health (chief complaint) Incomplete bladder emptyingEncount er to discuss test results 4 Rashaun Powell. [address] [place], [address], [place]. tel:[phone] OFFICE/OUTPA TIENT VISIT, EST [facility], [address], [address], [place] tel:[phone] [facility] Lab results (chief complaint) Persistent headachesEncoun ter to discuss test results 4 Gil Moreira. [address] [place], [address], [place]. tel:[phone] [facility], [address], [place], [place], [address], [place] tel:[phone] [facility] mri reordered (chief complaint) Persistent headaches 4 Jay Gilliam. [address] [place], [address], [place]. tel:[phone] OFFICE/OUTPA TIENT VISIT, EST [facility], [address], [place], [place], [address], [place] tel:[phone] [facility] dysuria (chief complaint)scr eening for STD (chief complaint)In Person visit/ Walk In (chief complaint) DysuriaScreenin g for STD (sexually transmitted disease) 4 Rashaun Powell. [address] [place], [address], [place]. tel:[phone] [facility], [address], [place], [place], [address], [place] tel:[phone] [facility] Telehealth (chief complaint) No Information 0 4 Saskia Quezada. [address] [place], [address], [place]. tel:[phone] [facility], [address], [place], [place], [address], [place] tel:[phone] [facility] +headaches /er f/u (chief complaint) Persistent headaches 3 Jaysravan Gilliam. [address] [place], [address], [place]. tel:[phone] [facility], [address], [place], [place], [address], [place] tel:[phone] [facility] Hospital follow-up (chief complaint)Tel e Health (chief complaint) Recurrent headacheHospita l discharge follow-up 3 Rashaun Powell. [address] [place], [address], [place]. tel:[phone] OFFICE/OUTPA TIENT VISIT, EST [facility], [address], [address], [place] tel:[phone] [facility] UTI (chief complaint) Acute cystitis without hematuria 3 Jose Cassidy. [address] [place], [address], [place]. tel:[phone] [facility], [address], [place], [place], [address], [place] tel:[phone] [facility] Hospital discharge follow -up (chief complaint)Hea daches (chief complaint)Tel e Health (chief complaint) Other migraine without status migrainosus, not intractableHosp ital discharge follow-up 3 Rashaun Powell. [address] [place], [address], [place]. tel:[phone] OFFICE/OUTPA TIENT VISIT, EST [facility], [address], [place], [place], [address], [place] tel:[phone] [facility] *vaginal itching (chief complaint) Encntr for culture manager exam (general) (routine) w/o abn findingsVaginal itching 3 Tadokoro Elizabeth. [address], [place], [place], [address], [place]. tel:[phone] OFFICE/OUTPA TIENT VISIT, EST [facility], [address], [place], [place], [address], [place] tel:[phone] [facility] Lab results (chief complaint) Obesity (BMI 30-39.9)Renal cyst, leftPlantar fasciitis, left 3 Gil Moreira. [address] [place], [address], [place]. tel:[phone] [facility], [address], [place], [place], [address], [place] tel:[phone] [facility] results (chief complaint)tel ehealth (chief complaint) Encounter to discuss test results 3 Jeremiahokoro Elizabeth. [address], [place], [place], [address], [place]. tel:[phone] [facility], [address], [place], [place], [address], [place] tel:[phone] [facility] Functional dyspepsia 3 Gil Moreira. [address] [place], [address], [place]. tel:[phone] OFFICE/OUTPA TIENT VISIT, EST [facility], [address], [place], [place], [address], [place] tel:[phone] [facility] annual exam (chief complaint) Encounter for gynecological examination (general) (routine) without abnormal findingsContact with and (suspected) exposure to infections with a predominantly sexual mode of transmissionEnc ounter for screening breast examinationScre ening for cervical cancerScreening for HPV (human papillomavirus) Vaginal dischargeBreast pain in femaleBreast lump in female 3 Marvin Johnson. [address], [place], [place], [address], [place]. tel:[phone] OFFICE/OUTPA TIENT VISIT, [facility], [address], [place], [place], [address], [place] tel:[phone] [facility] Dysuria x 1 week (chief complaint) Encntr for general adult medical exam w/o abnormal findingsRight arm numbnessDysuria Proteinuria, unspecified typeFunctional dyspepsia 3 Gil Moreira. [address] [place], [address], [place]. tel:[phone] OFFICE/OUTPA TIENT VISIT, [facility], [address], [place], [place], [address], [place] tel:[phone] [facility] Vaginal itching (chief complaint) Vaginal candidiasis 3 Jose Cassidy. [address] [place], [address], [place]. tel:[phone] [facility], [address], [place], [place], [address], [place] tel:[phone] [facility] routine exam (chief complaint) Myopia, bilateralBilate ral astigmatism 3 Lilian Bennett. [address], [place], [address], [place]. tel:[phone] OFFICE/OUTPA TIENT VISIT, EST [facility], [address], [address], [place] tel:[phone] [facility] Vaginal issues (chief complaint)In Person visit (chief complaint) Bacterial vaginosisOther specified bacterial agents as the cause of diseases classified elsewhereVagina l candidiasis 3 Rashaun Powell. [address] [place], [address], [place]. tel:[phone] OFFICE/OUTPA TIENT VISIT, [facility], [address], [address], [place] tel:[phone] [facility] F/U H. Pylori (chief complaint) H. pylori infection 3 Gil Moreira. [address] [place], [address], [place]. tel:[phone] OFFICE/OUTPA TIENT VISIT, [facility], [address], [address], [place] tel:[phone] [facility] *breast pain/lump (chief complaint) Breast lump in femaleBreast pain in female 3 Marvin Johnson. [address], [address], [place]. tel:[phone] OFFICE/OUTPA TIENT VISIT, [facility], [address], [address], [place] tel:[phone] [facility] Lab results (chief complaint) H. pylori infectionVitami n D insufficiency 3 Gil Moreira. [address] [place], [address], [place]. tel:[phone] [facility], [address], [address], [place] tel:[phone] [facility] TeleMed (chief complaint)H. Pylori stool results (chief complaint) H. pylori infectionChroni c nauseaFunctiona l dyspepsiaGenera lized abdominal pain 3 Gil Moreira. [address] [place], [address], [place]. tel:[phone] OFFICE/OUTPA TIENT VISIT, [facility], [address] [place] [address] Ave [address], [place], [place], [address], [place] tel:[phone] [facility] Establish care (chief complaint) Obesity (BMI 30-39.9)Encount er to establish careLipid screeningChroni c nauseaFunctiona l dyspepsiaGenera lized abdominal painFamily history of colon cancerAnxiety about healthHistory of ovarian cystPelvic painChronic radicular pain of lower backOther chronic painDecreased vision in both eyes 3 Gil Moreira. [address] [place], [address], [place]. tel:[phone] Family History Family Member Type Diagnosis Age At Onset Mother Problem Alive and well Father Problem Alive and well Payers Payer name Insurance type Covered democrat ID Authorrama skinner(s) [facility] [id number] [facility] Managed Wrap [id number] Social History Type Description Quantity Date Captured Comments Alcohol Use Details No Caffeine Use Details coffee and soda 1 cup per day 2023 Tobacco Use Status Current non-smoker Smoking Status Never smoker Sex Female Sexual Orientation Straight or heterosexual Gender Identity Female Vital Signs Date / Time: Height Weight BMI Pulse Rate Blood Pressure Temperature Respiratory Rate Body Surface Area Head Circumference Head Circ. Percentile Wt./Mikey. Percentile BMI percentile Pulse Ox Inhaled Ox 8:19 AM 66.00 in 89.721 kg (197.80 lbs) 31.9 3 kg/m eter (2) 78 /min 122/79 mm[Hg] 16 /min 2.04 meter(2) 99 % 21 % Chief Complaint And Reason For Visit From encounter dated '05/04/2024 08:02'. ultrasound result (chief complaint). Description: 34-year-old female presents to the clinic for ultrasound result regarding c/o white-yellowish vaginal discharge, vaginal itching, pelvic pain x 1 month. Patient reports symptoms have improved since last visit. She states occasional vaginal irritation. Pt denies MEDICAL DIR complaints today, denies fever, chills.PMH: Ovarian cyst, Left kidney cystSx: section 2011OB: [birth year] (2 living, 2010- premature @ 6 months)MEDICAL DIR: PAP: NILM, HPV(-) 08/30/2023LMP: 04/07/2024ontraceptive: DeniesUA negative today.Pelvic ultrasound reviewed: moderate free fluid, may suggest cyst rupture; no evidence of fibroid. ER precautions discussed with pt.Follow-up 1 month. Reason For Referral Reason For Referral No Information Plan Of Treatment Date Type Action Status Goal Pap/HPV testing. Due on due Goal Dental exam. Due on due Goal PAP. Due on due Goal Depression scree jesus. Due on due Goal Alcohol/chemical dependency screeing. Due on due Goal Diabetes screeni ng. Due on due Goal Pap/HPV testing. Due on due Goal PAP. Due on due Goal Diabetes screeni ng. Due on due Goal Dental exam. Due on due Goal Alcohol/chemical dependency screeing. Due on due Goal Depression scree jesus. Due on due Goal PAP. Due on due Goal Depression scree jesus. Due on due Goal Pap/HPV testing. Due on due Goal Diabetes screeni ng. Due on due Goal Alcohol/chemical dependency screeing. Due on due Goal Dental exam. Due on due Goal Dental exam. Due on due Goal Depression scree jesus. Due on due Goal Diabetes screeni ng. Due on due Goal Alcohol/chemical dependency screeing. Due on due Goal PAP. Due on due Goal Pap/HPV testing. Due on due Goal Diabetes screeni ng. Due on due Goal Dental exam. Due on due Goal Depression scree jesus. Due on due Goal PAP. Due on due Goal Alcohol/chemical dependency screeing. Due on due Goal Pap/HPV testing. Due on due Goal Dental exam. Due on due Goal Pap/HPV testing. Due on due Goal Alcohol/chemical dependency screeing. Due on due Goal Depression scree jesus. Due on due Goal PAP. Due on due Goal Diabetes screeni ng. Due on due Goal Depression scree jesus. Due on due Goal Dental exam. Due on due Goal Diabetes screeni ng. Due on due Goal PAP. Due on due Goal Pap/HPV testing. Due on due Goal Alcohol/chemical dependency screeing. Due on due Goal Depression scree jesus. Due on due Goal Dental exam. Due on due Goal Alcohol/chemical dependency screeing. Due on due Goal PAP. Due on due Goal Pap/HPV testing. Due on due Goal Diabetes screeni ng. Due on due Goal Depression scree jesus. Due on due Goal PAP. Due on due Goal Pap/HPV testing. Due on due Goal Alcohol/chemical dependency screeing. Due on due Goal Dental exam. Due on due Goal Diabetes screeni ng. Due on due Goal PAP. Due on due Goal Depression scree jesus. Due on due Goal Dental exam. Due on due Goal Diabetes screeni ng. Due on due Goal Alcohol/chemical dependency screeing. Due on due Goal Pap/HPV testing. Due on due Goal Diabetes screeni ng. Due on due Goal Dental exam. Due on due Goal Alcohol/chemical dependency screeing. Due on due Goal Depression scree jesus. Due on due Goal PAP. Due on due Goal Pap/HPV testing. Due on due Goal Pap/HPV testing. Due on due Goal Depression scree jesus. Due on due Goal Diabetes screeni ng. Due on due Goal Dental exam. Due on due Goal PAP. Due on due Goal Alcohol/chemical dependency screeing. Due on due Goal Diabetes screeni ng. Due on due Goal Alcohol/chemical dependency screeing. Due on due Goal Depression scree jesus. Due on due Goal Dental exam. Due on due Goal Pap/HPV testing. Due on due Goal PAP. Due on due Goal Depression scree jesus. Due on due Goal Pap/HPV testing. Due on due Goal Alcohol/chemical dependency screeing. Due on due Goal PAP. Due on due Goal Dental exam. Due on due Goal Dental exam. Due on due Goal Pap/HPV testing. Due on due Goal Depression scree jesus. Due on due Goal Alcohol/chemical dependency screeing. Due on due Goal PAP. Due on due Goal Alcohol/chemical dependency screeing. Due on due Goal Dental exam. Due on due Goal Pap/HPV testing. Due on due Goal PAP. Due on due Goal Depression scree jesus. Due on due Goal Depression scree jesus. Due on due Goal Dental exam. Due on due Goal PAP. Due on due Goal Pap/HPV testing. Due on due Goal Alcohol/chemical dependency screeing. Due on due Goal Dental exam. Due on due Goal Alcohol/chemical dependency screeing. Due on due Goal Pap/HPV testing. Due on due Goal PAP. Due on due Goal Depression scree jesus. Due on due Goal Depression scree jesus. Due on due Goal Dental exam. Due on due Goal PAP. Due on due Goal Pap/HPV testing. Due on due Goal Alcohol/chemical dependency screeing. Due on due Goal Depression scree jesus. Due on due Goal Pap/HPV testing. Due on due Goal Alcohol/chemical dependency screeing. Due on due Goal PAP. Due on due Goal Dental exam. Due on 024 due Goal Pap/HPV testing. Due on due Goal Depression scree jesus. Due on due Goal Dental exam. Due on 024 due Goal PAP. Due on due Goal Alcohol/chemical dependency screeing. Due on due Goal Pap/HPV testing. Due on due Goal Depression scree jesus. Due on due Goal PAP. Due on due Goal Dental exam. Due on due Goal Alcohol/chemical dependency screeing. Due on due Goal Alcohol/chemical dependency screeing. Due on due Goal PAP. Due on due Goal Dental exam. Due on due Goal Depression scree jesus. Due on due Goal Pap/HPV testing. Due on due Goal Dental exam. Due on due Goal PAP. Due on due Goal Pap/HPV testing. Due on due Goal Depression scree jesus. Due on due Goal Alcohol/chemical dependency screeing. Due on due Goal PAP. Due on due Goal Alcohol/chemical dependency screeing. Due on due Goal Dental exam. Due on due Goal Depression scree jesus. Due on due Goal Pap/HPV testing. Due on due Goal Depression scree jesus. Due on due Goal Pap/HPV testing. Due on due Goal Dental exam. Due on due Goal Alcohol/chemical dependency screeing. Due on due Goal PAP. Due on due Goal Pap/HPV testing. Due on due Goal PAP. Due on due Goal Depression scree jesus. Due on due Goal Dental exam. Due on due Goal Alcohol/chemical dependency screeing. Due on due Goal Depression scree jesus. Due on due Goal Pap/HPV testing. Due on due Goal Alcohol/chemical dependency screeing. Due on due Goal PAP. Due on due Goal Dental exam. Due on due Goal Pap/HPV testing. Due on due Goal Depression scree jesus. Due on due Goal Alcohol/chemical dependency screeing. Due on due Goal Dental exam. Due on due Goal PAP. Due on due Goal Alcohol/chemical dependency screeing. Due on due Goal Dental exam. Due on due Goal Pap/HPV testing. Due on due Goal PAP. Due on due Goal Depression scree jesus. Due on due Goal Dental exam. Due on due Goal Pap/HPV testing. Due on due Goal Alcohol/chemical dependency screeing. Due on due Goal Depression scree jesus. Due on due Goal PAP. Due on due Goal PAP. Due on due Goal PAP. Due on due Goal PAP. Due on due Goal PAP. Due on due Goal PAP. Due on due Referral Ordered: Urology (related to Incomplete bladder emptying) ordered Referral Ordered: Referrals: Urology. Consult ordered Referral Ordered: MRI BRAIN W/O DYE ordered Referral Ordered: Neurology (related to Recurrent headache) ordered Referral Ordered: Referrals: Neurology. Consult ordered Referral Ordered: DX MAMMO INCL CAD BI Appointment date/timeframe: 1 Week ordered Referral Ordered: US EXAM, BREAST(S) Appointment date/timeframe: 1 Week ordered Referral Ordered: RENAL/KIDNEY ULTRASOUND Bilateral ordered Referral Ordered: US Breast Bilateral ordered Referral Ordered: MA Digital Diagnostic Mammo Bilat W CAD ordered Referral Ordered: Gastroenterology (related to Generalized abdominal pain) ordered Referral Ordered: Referrals: Gastroenterology. Evaluate and treat ordered Referral Ordered: TRANSVAGINAL US, NON-OB ordered Patient Education A Healthy Life style: Care Instructions completed Patient Education Eating Healthy Foods: Care Instructions completed Patient Education Painful Urinat ion (Dysuria): Care Instructions completed Future Order: Lab Order Marcell rossi vaginitis, trichomonas vaginalis, yeast ([id number]), Appointment on: , Collected on: , Sent on: Sent Future Order: Radiology Order US Breast Bilateral ([id number]), Sent on: Sent Future Order: Radiology Order MA Digital Diagnostic Mammo Bilat W CAD ([id number]), Sent on: Sent History Of Present Illness Encounter Date Complaint History Of Prese nt Illness ultrasound result 34-year-old fe male presents to the clinic for ultrasound result regarding c/o white-yellowish vaginal discharge, vaginal itching, pelvic pain x 1 month. Patient reports symptoms have improved since last visit. She states occasional vaginal irritation. Pt denies MEDICAL DIR complaints today, denies fever, chills.PMH: Ovarian cyst, Left kidney cystSx: section 2010OB: 2008, 2009 (2 living, 2010- premature @ 6 months)MEDICAL DIR: PAP: NILM, HPV(-) 08/30/2023LMP: 04/07/2024ontraceptive: DeniesUA negative today.Pelvic ultrasound reviewed: moderate free fluid, may suggest cyst rupture; no evidence of fibroid. ER precautions discussed with pt.Follow-up 1 month. results 34-year-old ritu bowen presents to the clinic for lab results follow-up regarding vaginal discharge. Urine culture, Sure swab negative results reviewed with pt. Pt reports ultrasound done on 04/04/2024, results pending. She states LMP 04/07/2024, denies MEDICAL DIR complaints at this time. Lab results reviewed with pt. ER precautions discussed.Follow-up 1 week for US result. Filling Vaginal discharge x3 weeks The p ataparna is a 34-year-old female who presents to clinic today with complaints of vaginal discharge for 3 weeks. Patient has been experiencing intermittent vaginal pain for the past 2 years. Despite regular check-ups for urinary tract infection, bacterial and yeast issues, the pain persists. The discharge is characterized by a thick white discharge, occasionally presenting as a yolk-like consistency, occasionally presenting as a yellowish hue. The patient has a history of chlamydia at the age of 19 year, which was successfully treated. She notes she is not sexually active currently, but notes she had one sexual encounter in the last 2 years. She was tested since then, but this has been a constant issue. States she feels she is sensitive in her vaginal region.She feels raw pain inside, sometimes has shooting pain in her bladder.She also feels dull achy pain sometimes in her thighs. Denies any lesion or cuts anywhere on her body. She has intermittent itching and feels discomfort. She notes she had yeast infection and was treated about 2 weeks ago with oral medication, she was prescribed three tablets to takes every 3 days. She has always used Dove, does not use soap and only uses water to clean her vaginal region.Denies tight binding cloths or nylon clothing. She usually wears loose clothing.She reports she is trying to get checked for colon issues and has seen a specialist for her bladder, who told her it could be pressure on her bladder. 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 Her last menstrual period was on 03/16/2024.Her menstrual periods are regular, just last one was noted to be darker than usual. She has heavy flow on days 3 to 5 and her periods usually starts at the end of the month. Telemedicine The symptoms beg an 1 day ago and generally lasts 1 Day. The patient verbally consented to have their visit with [facility] via Telehealth for their concern.Reason for Telehealth visit: State guidelines promulgate patients should remain at home.Telehealth Platform used: TelephoneIs this visit type clinically appropriate for this patient? YesIs this encounter in place of a face -to-face encounter? YesTotal length of Telehealth visit: 15 minutes Back pain Onset: 1 year ag o. Duration: 1 Year. The problem is worsening. It occurs intermittently. Location of pain is lower back. Pain is radiated to the right calf, right foot and right thigh. The patient describes the pain as an ache and sharp. Context: no injury. Symptoms are aggravated by lying/rest.The patient denies relieving factors. Additional information: Denies saddle paresthesia. Filling vaginal concerns 34-year-old fem celine presents to the clinic c/o white-yellowish vaginal discharge, vaginal itching, pelvic pain x 1 month. Patient reports she was evaluated in urgent care previously, was prescribed and taking cream and pill. She denies dysuria, dyspareunia, vaginal odor, fever, chills, nausea, vomiting. PMH: Ovarian cyst, Left kidney cystSx: section 2010OB: 2008, 2009 (2 living, 2010- premature @ 6 months)MEDICAL DIR: PAP 2022 normal per ptLMP: 4Contraceptive: DeniesUA negative today.Sureswab collected.Pelvic ultrasound referral.ER precautions discussed with pt.Follow-up 1 week. results 34 yo female pre sents for 02/28/24 vaginal infection swab testing that is negative for all infections tested Filling *vaginal discharge 34 yo female presents as a walk in for vaginal discharge w/odor, irritation x 3 days Filling Discuss test results Tamara smith is a 34-year-old female on video call today for discussions of test results.She has lab works done on 01/31/2024. Lyme disease negative. Hemoglobin A1c is 5.4. Vitamin D is at 35. TSH is 2.21. Folate and vitamin B12 within normal limits. Gluten is negative. Ferritin within normal limit. She tested high for EBV, nuclear IgG. Hemoglobin is 12.3 and hematocrit is 39.5. White blood cell count is 5.8. Kidney and liver function came back normal. Total cholesterol is 155, LDL cholesterol is 87, and triglycerides at 52. Urinalysis: moderate bacteria.No other health complaints. Ricardo Video Visit > Patient ranjana quinn consented to have their visit with [facility] via Telehealth for their concern.> Telehealth Platform used: Ricardo Video Call> Is this visit type clinically appropriate for this patient? Yes> Is the encounter in place of a rbep-es-aluv encounter? Yes> Total Length of Telehealth Visit: 15 minutes> The patient understands and consents to this telehealth (video) encounter> Date of verified by patient prophy Check-up/Cleaning f/u +Today, the clarke ent verbally consented to have their visit with [facility] via Telehealth for their concern.Telehealth Platform used: TelephoneIs this visit type clinically appropriate for this patient? Yes. Is this encounter in place of a hhdi-md-yppx encounter? Yes. Total Length of Telehealth Visit: 20 minutes+she is constant has stomach and bladder area. and pain in the thigh x 2 month.+she has different tingling in her head and sides. +no weight loss. +f/u in the clinic was advised for exam due to the limitation of the telehealth. incomplete bladder e mptying and recurrent UTI The patient is a 33-year-old female patient coming here today for follow-up on incomplete bladder emptying and recurrent UTI.The patient has been complaining of incomplete bladder emptying and recurring UTIs for the past several months. UA today is unremarkable except for blood in the urine, but she is on her menstrual. She denies any urinary symptoms at this visit. She has been treated with antibiotics for her UTIs recently. She is scheduled to be seen by Dr. Bagley, urology for her recurrent UTIs and incomplete bladder emptying. No other medical concerns. Tele Health > Patient verbal ly consented to have their visit with [facility] via Telehealth for their concern.> Telehealth Platform used: Phone Call> Is this visit type clinically appropriate for this patient? Yes> Is the encounter in place of a beqy-sn-atxr encounter? Yes> Total Length of Telehealth Visit: 15 minutes> The patient understands and consents to this telehealth(audio) encounter> Date of verified by patient Discuss test results The patient is a 33-year-old female in a telephone encounter today for discussions of test results.Laboratory StudiesLabs were reviewed with the patient. She had STD screening done 11/29/2023; syphilis, Trichomonas, chlamydia, gonorrhea, herpes I and II not detected. Hepatitis C not detected. HIV not detected. Urinalysis is clear. No signs of infection. Hepatitis panel nonreactive, only reactive to hepatitis A Ab total and hepatitis B surface antibody. Unable to completely empty the bladder She is also complaining of incomplete emptying of the bladder. I am going to put in a consult for a urologist. Lab results mri reordered +Today, the clarke ent verbally consented to have their visit with [facility] via Telehealth for their concern.Telehealth Platform used: TelephoneIs this visit type clinically appropriate for this patient? Yes. Is this encounter in place of a cncp-us-clbb encounter? Yes. Total Length of Telehealth Visit: 20 minutes+MRI head for headaches, the original one got . +f/u in the clinic was advised for exam due to the limitation of the telehealth. screening for STD In Person visit/ Walk In Tamara Meade is a 33-year-old female via in-person visit today. She is a walk-in complaining of dysuria.The patient is complaining of intermittent burning during urination. She denies any other smell of urine. No urinary frequency.I did an in-house urine dipstick. It was negative for ketones, blood, protein, nitrites, and leukocytes.She is also requesting for STD screening. dysuria Telehealth +headaches /er f/u +Today, the p atient verbally consented to have their visit with [facility] via Telehealth for their concern.Telehealth Platform used: TelephoneIs this visit type clinically appropriate for this patient? Yes. Is this encounter in place of a mwzw-ar-uipe encounter? Yes. Total Length of Telehealth Visit: 20 minutes+had constant headaches since September. +headaches starts in the back of the head thumbing pain, and fore head at times. +in the ER did blood test and had CT and was within normal.+she wakes up with a headaches, she can not go to sleep. as it never goes away.+f/u in the clinic was advised for exam due to the limitation of the telehealth. Hospital follow-up The patient i s a 33-year-old female on a telephone encounter today for hospital discharge follow-up.She was seen at [facility] at [facility] on 10/19/2023 with symptoms of headache and chest pain. Patient stated that her main concern is the headache. She is taking Topamax for that, but she said she has this recurrent headache and a pressure. She feels like pulsating in her head. They did a CAT scan of the head, which shows no evidence for acute intracranial abnormality. Impression was acute headache. She will be referred to Neurology for further evaluation. No other health complaints. Tele Health > Patient verbal ly consented to have their visit with [facility] via Telehealth for their concern.> Telehealth Platform used: Phone Call> Is this visit type clinically appropriate for this patient? Yes> Is the encounter in place of a ewen-vd-ofrf encounter? Yes> Total Length of Telehealth Visit: 15 minutes> The patient understands and consents to this telehealth(audio) encounter> Date of verified by patient UTI Onset: 2 Days. T he severity of the problem is moderate. Pain scale: 6/10. The problem has worsened. The symptoms are intermittent. Presenting/Initial symptoms include dysuria, flank pain and frequency. Symptoms are not associated with diabetes, or recent catheterization. Denies aggravating factors. Denies relieving factors. Associated symptoms include dysuria, flank pain and frequency. Pertinent negatives include abdominal pain, dribbling, fatigue, fever, hematuria, hesitancy, nausea, nocturia, pelvic pain, penile discharge, pressure, rash, retention, urgency, vaginal discharge or vomiting. Additional information: UA dip = BLO - negative, NIT - negative, IGOR - trace. Headaches Tele Health > Patient verbal ly consented to have their visit with [facility] via Telehealth for their concern.> Telehealth Platform used: Phone Call> Is this visit type clinically appropriate for this patient? Yes> Is the encounter in place of a uhaq-re-mbvm encounter? Yes> Total Length of Telehealth Visit: 15 minutes> The patient understands and consents to this telehealth(audio) encounter> Date of verified by patient Hospital discharge follow -up Ziggy Meade is a 33-year-old female in a telephone encounter today requesting for a test.She has been having a lot of headache for the past 2 weeks. She went to [facility] on 10/19/2023 and they worked her up. BMP came back normal. Troponin came back normal. There was a CT scan of the head without contrast, which shows no evidence for acute intracranial abnormality. No edema, hemorrhage, mass, acute infarction, or inappropriate atrophy. *vaginal itching 33 yo female pr esents for vaginal itching/discomfort x 1 week. +odor. thickLMP 10/09/23she does not use control at this time Lab results telehealth Today, the patie nt verbally consented to have their visit with [facility] via Telehealth for their concernReason for Telehealth Visit: State guidelines that residents should remain at home [Home-stay order and/or Quarantine]Telehealth Platform used: TelephoneIs this visit type clinically appropriate for this patient? YesIs this encounter in place of a kkak-hh-pmgj encounter? YesTotal Length of Telehealth Visit: 15 minutes results 33 yo female pre sents for pap smear test results from 08/30/2023 that is NILM/HPV neg.recommend pelvic and breast exams/mammograms every 1 yearher breast imaging has not been scheduled as of this visit annual exam The patient stat es she uses none for control. Last LMP was 08/19/2023. Negative for dysmenorrhea. Menopausal symptoms negative for: hot flashes. Pertinent negatives include abnormal vaginal bleeding, dyspareunia and vaginal discharge. Diet healthy. The patient does not use tobacco. She does not drink alcohol. Additional information: presents for pap and breast exam. + breast pain/lumpsc/o white vaginal discharge. +itching. denies ordor. Dysuria x 1 week Vaginal itching Her symptoms beg an 3 Days ago. She states the problem has remained unchanged. The symptoms are reported as being moderate. Presently the patient is experiencing vaginal itching, vaginal irritation and vaginal discharge. Color is white. Presently the patient is not experiencing vaginal odor.The patient is premenopausal.patient denies condom use, contraceptive use, diabetes mellitus, douching, new partner, pessary use, recent antibiotics or tampon use.The patient has a history of bacterial vaginosis and yeast.The patient has no history of abnormal PAP, chlamydia, gonorrhea or trichomoniasis. Her symptoms are not aggravated by anything. Her symptoms are not relieved by anything. Her symptoms are associated with dysuria and vulvar itching but she denies fever, dyspareunia, vaginal burning, urinary frequency, genital lesions, genital rash, genital ulcers, herpes genitalis or vulvar dystrophy. Additional information: UA dip = unremarkable. routine exam The 33 year old patient presents for evaluation of routine exam. px presents with some distance blur Vaginal issues Tamara Meade 33-year-old female here today as an in-person visit. She is complaining of foul smelling vaginal discharge x3 days. She is also complaining of whitish vaginal discharge with itchiness. Denies any possibility of . I checked the UA, everything is clear. Negative for nitrates, leukocytes, and protein. No other health complaints. In Person visit F/U H. Pylori Patient complete d her treatment for H. Pylori, clarithromycin 500mg BID and Flagyl 500mg BID x 2 weeks. She reports she has less belching and stomach issues. Patient lost her H. Pylori stool kit, needs a new one. *breast pain/lump 33 yo female p resents for breast pain/lump on her right breast Lab results H. Pylori stool results TeleMed The patient vincenzo dugan consented to have their visit with [facility] via Telehealth for their concern.Reason for Telehealth visit: State guidelines require current stay at home Telehealth Platform used: TelephoneIs this visit type clinically appropriate for this patient: yesIs this encounter in place of a face -to-face encounter? yesTotal length of Telehealth visit: 15 minutes Establish care 32-year old femrob le to establish care. PMH:ruptured right ovarian cystPSH: 2011Both parents alive and wellGrandfather h/o colon cancerPatient is single lives in an apartment, has two daughters. She moved here from [place] in November 2022. Reports her last pap was , she did not get results. Reports intermittent abdominal pain, constipation and nausea x about 1 year. Functional Status Date Functional Assessmen t Pain Score 0/10 Instructions Date Instruction Additional Infor troy UA negative today.Pe lvic ultrasound reviewed: moderate free fluid, may suggest cyst rupture; no evidence of fibroid. ER precautions discussed with pt.Follow-up 1 month. Related to Encounter to discuss test results Lab results reviewed with pt. ER precautions discussed.Follow-up 1 week for US result. Related to Encounter to discuss test results Let next provider ritchie ow if occlusal is high during next appt Related to Caries Come back to continu e with operative fillings Related to Caries A urine sample will be collected for culture and sensitivity. Related to Sensation of pressure in bladder area A vaginal swab will be collected for further analysis. Advised to use avhz-oni-fgnrcfn moisturizers. A prescription for terconazole cream and oral medication will be provided. Related to Problematic vaginal discharge For lumbar spine x-r ay. Advised to perform stretching exercises and leg raises exercises as well as to apply warm compress 2-3 x a day for 20 minutes to back. Naproxen prn. ER precaution if develops severe pain with sciatica. Follow up in 2-3 weeks. Related to Chronic midline low back pain with right-sided sciatica UA negative today.Bean reswab collected.Pelvic ultrasound referral.ER precautions discussed with pt.Follow-up 1 week. Related to Female pelvic pain UA negative today.Bean reswab collected.Pelvic ultrasound referral.ER precautions discussed with pt.Follow-up 1 week. Related to Vaginal discharge Let next provider ritchie ow if occlusal is high during next appt Related to Caries Come back to continu e with operative fillings Related to Caries follow up as needed and for annual exams Related to Encounter to discuss test results Do not eat for the n ext hours until the anesthesia wears away Related to Caries Come back to continu e with operative fillings Related to Caries prescription sent to pharmacyfollow up as needed and for annual exam Related to Vaginal odor Let next provider kn ow if occlusal is high during next appt Related to Caries Come back to continu e with operative fillings Related to Caries Advised patient to e at foods high in Vitamin D like fish, cod-liver oil, eggs, fortified cow's milk, bread and cereals and sun exposure. Related to Low vitamin D level This note has been c reated using [employer] and was completed in the EHR by M Related to Encounter to discuss test results patient dental education Related to Dental caries oral hygiene instruction Related to Dental caries nutrition counseling Related to Dental caries patient dental education Related to Dental caries oral hygiene instruction Related to Dental caries nutrition counseling Related to Dental caries +take meds as direct ed+f/u in the clinic for exam+if worsen go to ER Related to Bilateral thigh pain take meds as directe d+f/u in the clinic for exam+if worsen go to ER Related to Other fatigue stable Related to Renal cyst, left Discussed healthy we ight loss through diet and exercise. Advised to decrease intake of soda and juices, sweets, cookies and chips. Advised at least 30 minutes of exercise 3-5 x a week. Limit TV/videos/media time to less than 2 hours a day. Related to Obesity (BMI 30.0-34.9) She will follow up w ith the urologist as scheduled. Related to Incomplete bladder emptying UA dip today is unre markable except for blood in the urine, but patient is on her menstrual period.Follow up with the urologist as scheduled. Related to Recurrent UTI Discussed healthy we ight loss through diet and exercise. Advised to decrease intake of soda and juices, sweets, cookies and chips. Advised at least 30 minutes of exercise 3-5 x a week. Limit TV/videos/media time to less than 2 hours a day.This note has been created using [employer] and was completed in the EHR by Susannah Berrios Related to Obesity (BMI 30.0-34.9) Urology referral made. Related t o Incomplete bladder emptying Labs dated 11/29/2023 discussed in detail. Questions/Concerns answered. This note has been created using [employer] and was completed in the EHR by Jose Related to Encounter to discuss test results Pt to schedule CT head Related t o Persistent headaches All STD testing negative Related to Encounter to discuss test results +take meds as direct ed+f/u in the clinic for exam+if worsen go to ER Related to Persistent headaches Labs for STD screeni ng placed today.This note has been created using [employer] and was completed in the EHR by Angy MR Related to Screening for STD (sexually transmitted disease) UA dipstick negative for UTI. Re lated to Dysuria +take meds as direct ed+f/u in the clinic for exam+if worsen go to ER Related to Persistent headaches Advised to keep a he adache diary, identify triggers that causes the headache. Lie down in a quiet, dark room, get enough sleep. Avoid driving a machinery if your eyesight changes when you have a headache. Eat at regular times, drink plenty of fluids and limit caffeine intake.This note has been created using [employer] and was completed in the EHR by Deon Gray. Related to Recurrent headache Macrobid ordered. In structed on the use of medication and to finish the whole course. Advised to drink adequate amount of fluid and may drink Cranberry juice. Advised to wash after sexual intercourse. RTC as needed. Related to Acute cystitis without hematuria This note has been c reated using [employer] and was completed in the EHR by Griselda Vela Related to Hospital discharge follow-up prescription sent to pharmacyfollow up as needed and for annual exam Related to Vaginal itching Continue to monitor. F/U if any new pain or symptoms Related to Renal cyst, left Decrease processed food intake. Related to Obesity (BMI 30-39.9) Increase physical activity. Rela jojo to Obesity (BMI 30-39.9) take meds as directe d. stretching exercises. Related to Plantar fasciitis, left follow up as needed and for annual exams Related to Encounter to discuss test results prescription sent to pharmacyfollow up as needed and for annual exam Related to Vaginal discharge Diflucan ordered. In structed to avoid alcohol while on Diflucan. Advised to avoid douching and wearing nylon materials. RTC as needed. Related to Vaginal candidiasis Impression/Plan Advised to refrain f rom sexual activity or use condom consistently during the treatment regimen. Douching might increase the risk of relapse. Avoid alcohol during treatment and 72 hours after completion of treatment. Related to Bacterial vaginosis This note has been c reated using [employer] and was completed in the EHR by Byron Related to Vaginal candidiasis Complete H. Pylori testing, f/u post. Related to H. pylori infection follow up [address] imaging obtained to review results follow up as needed and for annual exams Related to Breast pain in female Reports no abdominal issues since starting treatment Related to H. pylori infection Continue ABX, repeat H. Pylori stool in 1 month. Related to H. pylori infection Start daily multivitamin Related to Vitamin D insufficiency Medications as presc ribed, f/u in 2 weeks as scheduled for other lab result Related to H. pylori infection Decrease processed food intake. Related to Obesity (BMI 30-39.9) Increase physical activity. Rela jojo to Obesity (BMI 30-39.9) Assessments Type Assessment Date assessment Encounter to discuss test result s Mental Status Date Cognitive Assessment Orientation - [place] ed to time, place, person, situation. Patient Care Teams Name Effective Dates (start - stop) Status Members No Information
--- OUTSIDE RECORDS SUMMARY | 2025-02-04 19:00 | XMS_ITS | Data Portability ---
Author Organization [facility] , [facility] Address [address] [place] [address] Assessment No assessment recorded. Plan of Treatment Reminders Order Date Submit Date Provider Last Modified By Organization Details Last Modified Time Details Appointments None recorded. Lab unlisted lab - STD screening ([facility]) 2023 024 ELENZA, [address] [place], [address], 4 13:08:57 bacterial vaginosis + vaginitis panel, vaginal 2023 024 ELENZA, [address] [place], [address], 4 14:36:51 mycoplasma + ureaplasma DNA, unspecified specimen 2023 024 [employer] [facility], [address] [place], [address], 4 18:00:38 urinalysis, dipstick 2021 022 [email or web address] [facility], [address] [place], [address], 2 17:39:56 culture, urine 2021 022 [employer] [facility], [address] [place], [address], 2 20:29:51 STI panel 2020 [facility], [address] [place], [address], 17:08:34 HIV 1+2 Ab + HIV1 p24 Ag, quantitativ e immunoassay , serum 2020 [employer] [facility], [address] [place], [address], 15:55:47 HBsAg (hepatitis B surface Ag), serum 2020 [employer] [facility], [address] [place], [address], 15:55:46 RPR (rapid plasma reagin), serum 2020 [employer] [facility], [address] [place], [address], 15:55:48 hsv (1+2) igg, serum 2020 [employer] [facility], [address] [place], [address], 15:55:47 hsv (1+2) igm Ab, serum 2020 [employer] [facility], [address] [place], [address], 17:08:34 HPV E6+E7 mRNA, qualitative PCR, cervix 2020 [facility], [address] [place], [address], 16:12:47 pap, LB 2020 [employer] [facility], [address] [place], [address], 17:23:24 Referral None recorded. Procedures None recorded. Surgeries None recorded. Imaging US, transvagina l 2021 022 [email or web address] Not available 09:27:05 Medication Orders Loestrin Fe 12/10 (28-Day) 1 mg-20 mcg (21)/75 mg (7) tablet 2021 [id number], [address] [place], [place], [id number], 4 15:18:55 Patient TargetsNo targets recorded. Patient InstructionsNo instructions recorded. Reason for Referral None Reported. Results Created Date Observation Date Name Description Value Unit Range Abnormal Flag Note LastModifiedBy Organization Detail LastModifiedTime 10/30/20 21 11/02/2021 HEPAT ITIS B SURFA CE ANTIG EN W/REF L CONFI RM hepatitis B surface antigen NON-RE ACTIVE non-re active normal Not Available [facility] [address] [address] [place], [address], 11/02/2021 15:55:46 10/30/20 21 11/02/2021 HSV 1/2 IGG,T YPE SPECI FIC AB hsv 1 IgG, type specific Ab <0.90 index normal Not Available [facility] [address] [address] [place], [address], 11/02/2021 15:55:47 10/30/20 21 11/02/2021 HSV 1/2 IGG,T YPE SPECI FIC AB hsv 2 IgG, type specific Ab <0.90 index normal Index Inter preta tion ----- ----- ----- ---- <0.90 Negat tania 0.90- 1.09 Equiv ocal >1.09 Posit tania This assay utili zes recom binan t type- speci fic antig ens to diffe renti ate HSV-1 from HSV-2 infec tions . A posit tania resul t canno t disti nguis h betwe en recen t and past infec tion. If recen t HSV infec tion is suspe cted but the resul ts are negat tania or equiv ocal, the assay shoul d be repea antolin in 4-6 weeks . The perfo rmanc e bambi cteri stics of the assay have not been estab lishe d for pedia tric popul ation s, immun ocomp romis ed patie nts, or neona jasmin scree jesus. Not Available [facility] [address], [place], [address], 11/02/2021 15:55:47 10/30/2011/02/2021 HIV 1/2 ANTIG EN/AN TIBOD Y,FOU RTH GENER ATION W/RFL HIV Ag/Ab, 4TH gen NON-RE ACTIVE non-re active normal HIV-1 antig en and HIV-1 /HIV- 2 antib odies were not detec antolin. There is no labor atory evide nce of HIV infec tion. PLEAS E NOTE: This infor matio n has been discl osed to you from recor ds whose confi denti ality may be prote cted by state law. If your state requi res such prote ction , then the state law prohi bits you from [facility] discl osure of the infor matio n witho ut the speci fic writt en conse nt of the perso n to whom it perta ins, or as other garcias permi tted by law. A gener al autho rizat ion for the relea se of medic al or other infor matio n is NOT suffi cient for this purpo se. For addit ional infor matio n pleas e refer to http: //[facility] rory wylie.que stdia gnost ics.c om/fa q/FAQ 106 (This link is being provi ded for infor matio nal/ educa mamadou l purpo ses only. ) The perfo rmanc e of this assay has not been clini yaima valid ated in patie nts less than 2 years old. Not Available [facility] [address], [place], [address], 11/02/2021 15:55:47 10/30/20 21 11/02/2021 RPR (DX) W/REF L TITER AND CONFI RMATO RY TESTI NG RPR (DX) w/refl titer and confirmatory testing NON-RE ACTIVE non-re active normal Not Available [facility] [address] [place], [address], 11/02/2021 15:55:48 10/30/20 21 11/02/2021 HPV HIGH RISK HPV high risk Negati ve negati ve Not Available [address], [address], 11/03/2021 16:12:47 10/30/20 21 11/03/2021 STI PANEL trichomonas vaginalis TRICH neg negati ve Not Available [address], [address], 11/03/2021 16:12:47 10/30/20 21 11/03/2021 STI PANEL chlamydia trachomatis CT neg negati ve If both Pap and Endoc ervic al swabs are colle cted, the Prese rvCyt Solut ion liqui d Pap speci men must be colle cted befor e the endoc ervic al swab speci men. Not Available [address], [address], 11/03/2021 16:12:47 10/30/20 21 11/03/2021 STI PANEL neisseria gonorrhoeae GC neg negati ve If both Pap and Endoc ervic al swabs are colle cted, the Prese rvCyt Solut ion liqui d Pap speci men must be colle cted befor e the endoc ervic al swab speci men. Not Available [address], [address], 11/03/2021 16:12:47 10/30/20 21 11/06/2021 THINP REP TIS PAP clinical information: normal Infor matio n not provi ded Not Available [facility] [address] [place], [address], 11/06/2021 17:23:24 10/30/20 21 11/06/2021 THINP REP TIS PAP LMP: normal Infor matio n not provi ded Not Available [address] [place], [address], 11/06/2021 17:23:24 10/30/20 21 11/06/2021 THINP REP TIS PAP prev. Pap: normal Infor matio n not provi ded Not Available [address], [place], [address], 11/06/2021 17:23:24 10/30/20 21 11/06/2021 THINP REP TIS PAP prev. BX: normal Infor matio n not provi ded Not Available [address] [address] [place], [address], 11/06/2021 17:23:24 10/30/20 21 11/06/2021 THINP REP TIS PAP source: normal Infor matio n not provi ded Not Available [address] [facility] [facility] [place], [address], 11/06/2021 17:23:24 10/30/20 21 11/06/2021 THINP REP TIS PAP statement of adequacy: normal Satis facto ry for evalu ation . Endoc ervic al/tr ansfo rmati on zone compo nent prese nt. Age and/o r menst rual statu s not provi ded Not Available [address], [place], [address], 11/06/2021 17:23:24 10/30/20 21 11/06/2021 THINP REP TIS PAP interpretati on/result: normal Negat tania for intra epith elial lesio n or malig marcus . Not Available [address], [place], [address], 11/06/2021 17:23:24 10/30/20 21 11/06/2021 THINP REP TIS PAP comment: normal This Pap test has been evalu ated with [facility] [employer] [employer] . Not Available [address] [address] [place], [address], 11/06/2021 17:23:24 10/30/20 21 11/06/2021 THINP REP TIS PAP cytotechnolo gist: normal MDG, CT( CP) CT scree jesus locat ion: [address] [address] [place] [address] Not Available [facility] [address] [address] [place], [address], 11/06/2021 17:23:24 10/30/20 21 11/06/2021 THINP REP TIS PAP comment EXPLA NATOR Y NOTE: The Pap is a scree jesus test for cervi paty cance r. It is not a diagn ostic test and is subje ct to false negat tania and false posit tania resul ts. It is most relia ble when a satis facto ry sampl e, regul zara obtai nigel, is submi tted with relev ant clini paty findi ngs and histo ry, and when the Pap resul t is evalu ated along with histo yael and curre nt clini paty infor matio n. Not Available [address] [address] [place], [address], 11/06/2021 17:23:24 05/01/20 22 05/01/2022 urina lysis , dipst ick Leukocytes Modera te Not Available [facility] [address] [place], [address], 05/01/2022 14:05:03 05/01/20 22 05/01/2022 urina lysis , dipst ick Nitrite negati ve Not Available [facility] [address] [place], [address], 05/01/2022 14:05:03 05/01/20 22 05/01/2022 urina lysis , dipst ick Urobilinogen .2 Not Available [facility] [address], [place], [address], 05/01/2022 14:05:03 05/01/20 22 05/01/2022 urina lysis , dipst ick Protein Trace Not Available [address], [place], [address], 05/01/2022 14:05:03 05/01/20 22 05/01/2022 urina lysis , dipst ick pH 5.0 Not Available [address], [place], [address], 05/01/2022 14:05:03 05/01/20 22 05/01/2022 urina lysis , dipst ick Blood Large Not Available [address], [place], [address], 05/01/2022 14:05:03 05/01/20 22 05/01/2022 urina lysis , dipst ick Specific Blanchard 1.015 Not Available [facility] [address], [place], [address], 05/01/2022 14:05:03 05/01/20 22 05/01/2022 urina lysis , dipst ick Ketone Small Not Available [address], [place], [address], 05/01/2022 14:05:03 05/01/20 22 05/01/2022 urina lysis , dipst ick Bilirubin Negati ve Not Available [address], [place], [address], 05/01/2022 14:05:03 05/01/20 22 05/01/2022 urina lysis , dipst ick Glucose Negati ve Not Available [address], [address], 05/01/2022 14:05:03 05/01/20 22 05/01/2022 urina lysis , dipst ick Appearance Clear Not Available [address], [address], 05/01/2022 14:05:03 05/01/20 22 05/01/2022 urina lysis , dipst ick Color Dark Yellow Not Available [address], [address], 05/01/2022 14:05:03 05/03/20 22 05/04/2022 CULTU RE, URINE , ROUTI NE culture, urine, routine SEE NOTE CULTU RE, URINE , ROUTI NE Micro Numbe r: [id number] Test Statu s: Final Speci men Sourc e: Urine , clean catch Speci men Quali ty: Adequ ate Resul t: No Growt h Not Available [facility] [address] [address] [place], [address], 05/04/2022 20:29:51 11/05/20 24 11/06/2024 STD SCREE JESUS ([facility] ) hep BS Ag Non-Re active non-re active normal Not Available [facility] [address] [place], [address], 11/06/2024 13:08:57 11/05/20 24 11/06/2024 STD SCREE JESUS ([facility] ) hep C Ab Non-Re active non-re active normal Not Available [facility] [address] [place], [address], 11/06/2024 13:08:57 11/05/20 24 11/06/2024 STD KERRY SANCHEZ ([facility] ) HIV 1/2 Ag/Ab Non-Re active non-re active normal Not Available [address], [address], 11/06/2024 13:08:57 11/05/20 24 11/06/2024 STD KERRY SANCHEZ ([facility] ) syphilis Ab Non-Re active non-re active normal Not Available [address], [address], 11/06/2024 13:08:57 11/05/20 24 11/07/2024 VAGIN ITIS PLUS STD PANEL bacterial vaginosis BV neg negati ve normal Not Available [address], [address], 11/07/2024 14:36:51 11/05/20 24 11/07/2024 VAGIN ITIS PLUS STD PANEL tej species C. spp neg negati ve normal Not Available [address], [address], 11/07/2024 14:36:51 11/05/20 24 11/07/2024 VAGIN ITIS PLUS STD PANEL tej glabrata C. gla neg negati ve normal Not Available [address], [address], 11/07/2024 14:36:51 11/05/20 24 11/07/2024 VAGIN ITIS PLUS STD PANEL trichomonas vaginalis CV/TV TRICH neg negati ve normal Not Available [address], [address], 11/07/2024 14:36:51 11/05/20 24 11/07/2024 VAGIN ITIS PLUS STD PANEL chlamydia trachomatis CT neg negati ve normal This repor t is inten ded for us in clini paty monit oring and manag ement of patilarry nts. It is not inten ded for use in medic al-le gal appli catio n. Not Available [address], [address], 11/07/2024 14:36:51 11/05/20 24 11/07/2024 VAGIN ITIS PLUS STD PANEL neisseria gonorrhoeae GC neg negati ve normal This repor t is inten ded for us in clini paty monit oring and manag ement of shyanne rogel. It is not inten ded for use in medic al-le gal appli catio n. Not Available [facility] [address] [place], [address], 11/07/2024 14:36:51 11/05/20 24 11/10/2024 MYCOP LASMA /UREA PLASM A PANEL sureswab(R), mycoplasma hominis, real-time PCR NOT DETECT ED normal REFEE RENCE RANGE : NOT DETEC ANTOLIN Metho dolog y: Real- Time PCR This test was devel oped and its dat tical perfo rmanc e bambi cteri stics have been deter mined by [facility]. It has not been clear ed or appro dipti by FDA. This assay has been valid ated pursu ant to the CLIA regul ation s and is used for clini paty purpo ses. Not Available [facility] [address] [address] [place], [address], 11/10/2024 18:00:38 11/05/20 24 11/10/2024 MYCOP LASMA /UREA PLASM A PANEL mycoplasma genitalium, rrna,tma NOT DETECT ED normal REFER ENCE RANGE : NOT DETEC ANTOLIN Not Available [facility] [address] [place], [address], 11/10/2024 18:00:38 11/05/20 24 11/10/2024 MYCOP LASMA /UREA PLASM A PANEL U. parvum DNA DETECT ED abnormal Not Available [facility] [address] [place], [address], 11/10/2024 18:00:38 11/05/20 24 11/10/2024 MYCOP LASMA /UREA PLASM A PANEL U. urealyticum DNA NOT DETECT ED normal REFER ENCE RANGE : NOT DETEC ANTOLIN Metho dolog y: Real- Time PCR This test was devel oped and its dat tical perfo rmanc e bambi cteri stics have been deter mined by [employer] ostic s. It has not been clear ed or appro dipti by FDA. This assay has been valid ated pursu ant to the CLIA regul ation s and is used for clini paty purpo ses. Not Available [facility] [address], [place], [address], 11/10/2024 18:00:38 05/20/20 22 05/18/2022 US, trans vagin al No observ ation record ed. [facility] [address], [place], [address], 06/01/2022 17:57:53 Result Notes None recorded. Problems No Known Problems Procedures Surgical History Date Name Laterality Status Provider Name and Address Organization Details Recorded Time Date of Last Pap Smear completed Marixa Zayas [facility] [employer] [facility] 11/05/2024 15:11:54 section completed Paulette Escoto, DO [facility], [place], [address], [facility] [employer] [facility] 10/30/2021 15:39:37 Imaging Results Imaging Date Name Status LastModified by Organization Details LastModified Time 05/18/2022 US, transvaginal completed [facility] [address], [place], [address], 06/01/2022 17:57:53 Procedure Notes None recorded. Medical Equipment None Reported. Allergies Allergen ID Allergen Name Allergen Category Reaction Reaction Severity Criticality Documentation Date Start Date Code Code System Note Provider Name and Address Organization Details Recorded Time 201815 Substance with sulfonami de structure and antibacte rial mechanism of action (substanc e) medicatio n swelling Not available Not available 10/30/2021 93676 8003 SNOMED Not Available Not Available Not Available Medications Name Sig Start Date Stop Date Status Note LastModified by Organization Details LastModified Time probiotic daily cap TAKE 1 CAPSULE BY MOUTH 4 TIMES DAILY ONE HOUR AFTER EACH ANTIBIOTI C DOOSE 11/05 completed Not Available Not Available Not Available terconazole 0.4 % vaginal cream INSERT ONE APPLICATO RFUL VAGINALLY ONCE A DAY AT BEDTIME FOR 7 DAYS 11/05 completed Not Available Not Available Not Available fluconazole 150 mg tablet TAKE 1 TABLET BY MOUTH EVERY OTHER DAY 11/05 completed Not Available Not Available Not Available Loestrin Fe 1/20 (28-Day) 1 mg-20 mcg (21)/75 mg (7) tablet Take 1 tablet every day by oral route as directed. 11/05 completed Not Available Not Available Not Available fluconazole 200 mg tablet TAKE ONE TABLET BY MOUTH DAILY FOR 2 DAYS 11/05 completed Not Available Not Available Not Available phenazopyri dine 200 mg tablet TAKE ONE TABLET BY MOUTH THREE TIMES DAILY AFTER MEALS FOR 2 DAYS 11/05 completed Not Available Not Available Not Available metronidazo le 0.75 % (37.5 mg/5 gram) vaginal gel INSERT 1 APPLICATO RFUL BY VAGINAL ROUTE ONCE DAILY AT BEDTIME FOR 5 DAYS 11/05 completed Not Available Not Available Not Available moxifloxaci n 400 mg tablet Take 1 tablet every day by oral route. active Not Available Not Available No t Available clotrimazol e 1 % vaginal cream APPLY CREAM VAGINALLY ONCE A DAY AT BEDTIME FOR 7 DAYS 11/05 completed Not Available Not Available Not Available metronidazo le 500 mg tablet TAKE 1 TABLET BY MOUTH THREE TIMES DAILY FOR 10 DAYS 11/05 completed Not Available Not Available Not Available ciprofloxac in 500 mg tablet TAKE 1 TABLET BY MOUTH EVERY 12 HOURS 11/05 completed Not Available Not Available Not Available phenazopyri dine 100 mg tablet TAKE 1 TABLET BY MOUTH THREE TIMES DAILY FOR 2 DAYS 11/05 completed Not Available Not Available Not Available doxycycline monohydrate 100 mg capsule TAKE ONE CAPSULE BY MOUTH EVERY 12 HOURS FOR 10 DAYS 11/05 completed Not Available Not Available Not Available cephalexin 500 mg capsule TAKE 1 CAPSULE BY MOUTH 4 TIMES DAILY FOR 5 DAYS 11/05 completed Not Available Not Available Not Available ergocalcife rol (vitamin D2) 1,250 mcg (50,000 unit) capsule TAKE 1 CAPSULE BY MOUTH ONCE A WEEK FOR 8 WEEKS 11/05 completed Not Available Not Available Not Available ondansetron 4 mg disintegrat ing tablet DISSOLVE 1 TABLET UNDER THE TONGUE THREE TIMES DAILY NEEDED FOR NAUSEA 11/05 completed Not Available Not Available Not Available doxycycline hyclate 100 mg tablet Take 1 tablet twice a day by oral route. active Not Available Not Available No t Available naproxen 500 mg tablet TAKE 1 TABLET BY MOUTH TWICE DAILY WITH FOOD NEEDED FOR PAIN 11/05 completed Not Available Not Available Not Available nitrofurant oin monohydrate /macrocryst als 100 mg capsule TAKE 1 CAPSULE BY MOUTH TWICE DAILY FOR 7 DAYS (TAKE WITH PROBIOTIC S) 11/05 completed Not Available Not Available Not Available cholecalcif shannan (vitamin D3) 50 mcg (2,000 unit) tablet TAKE 1 TABLET BY MOUTH ONCE DAILY (AFTER THE HIGH DOSE OF VITAMIN D ) 11/05 completed Not Available Not Available Not Available Paxlovid 300 mg (150 mg x 2)-100 mg tablets in a dose pack TAKE 3 TABLETS BY MOUTH TWICE DAILY DIRECTED 11/05 completed Not Available Not Available Not Available Vitals Date Recorded Body weight Body temperature Systolic blood pressure Diastolic blood pressure Provider Name and Address Organization Details Last Updated DateTime 10/30/2021 13516.14 g 97.5 [degF] 126 mm[Hg] 72 mm[Hg] Yahaira Medellin RI [facility] 1 14:55:45 Date Recorded Body weight Body mass index (BMI) Body height Body temperature Systolic blood pressure Diastolic blood pressure Provider Name and Address Organization Details Last Updated DateTime 2 63165.9 5 g 34.9 kg/m2 167.64 cm 96.6 [degF] 122 mm[Hg] 76 mm[Hg] Roxann Santillans [facility] 2 13:37:57 Date Recorded Body height Body mass index (BMI) Body weight Body temperature Systolic blood pressure Diastolic blood pressure Provider Name and Address Organization Details Last Updated DateTime 2 167.64 cm 34.6 kg/m2 71977.9 2 g 97.6 [degF] 132 mm[Hg] 74 mm[Hg] Donavan Covarrubias [facility] 2 16:43:53 Date Recorded Body height Body mass index (BMI) Body weight Provider Name and Address Organization Details Last Updated DateTime 11/05/2024 168.91 cm 33.5 kg/m2 57110.99 g Marixa Zayas [facility] 11/05/2024 15:18:36 Social History Question Answer Notes LastModified by [email or web address] Details LastModified Time Tobacco Smoking Status Never Smoker Donavan garcia [facility] 05/18/2022 16:42:10 What Is Your Level Of Alcohol Consumption? Occasional [email or web address] Information not available 05/18/2022 Are You Blind Or Do You Have Difficulty Seeing? No [email or web address] Information not available 10/30/2021 Are You Deaf Or Do You Have Serious Difficulty Hearing? No [email or web address] Information not available 10/30/2021 What Type Of Diet Are You Following? REGULAR [email or web address] Information not available 05/18/2022 Which Illicit Or Recreational Drugs Have You Used? Social- Edibles [email or web address] Information not available 05/18/2022 How Many Children Do You Have? 2 [email or web address] Information not available 10/30/2021 What Is Your Relationship Status? Single [email or web address] Information not available 10/30/2021 Are You Sexually Active? Yes [email or web address] Information not available 10/30/2021 Do You Use Any Illicit Or Recreational Drugs? Yes [email or web address] Information not available 05/18/2022 Have You Used IV Drugs? No [email or web address] Information not available 05/18/2022 Sex: Female Functional Status Question Answer Note LastModified by [employer] Details LastModified Time What is your exercise level? Occasional [email or web address] Information not available 05/18/2022 Mental Status None recorded. Family History Relationship Description Onset Age of this Age Resolved Age Notes LastModified by Organization Details LastModified Time Maternal Grandfather Malignant tumor of colon [email or web address] Not available 2020 18:40:08 Maternal Grandmother Malignant tumor of ovary Not available 2020 18:40:39 Medical History Condition Response Other Cancer N High Blood Pressure N Colon Cancer N Cytomegalovirus N Hyperthyroidism N MRSA N Blood Transfusion N Herpes (HSV) N Breast Cancer N Lung Cancer N Depression N Hypothyroidism N Incontinence N Panic Attacks N Neurological Disorder N Deep Vein Thrombosis N Anxiety Disorder N Autoimmune disease N Arthritis N Shingles N Tuberculosis/Positive PPD N Polycystic Ovarian Syndrome N Cervical Cancer N Hematuria N Chlamydia N Varicosities N Stroke N Seasonal allergies N Crohn's Disease N Alzheimer's/Dementia N COPD/Emphysema N Endometriosis N HPV/Genital Warts N IBS (Irritable Bowel Syndrome) N History of Abnormal Pap N High Cholesterol N Liver Disease N Fibromyalgia N Kidney Infection N Ulcer N Kidney Disease N HIV N Gallbladder disease N Sickle Cell Disease/Trait N Von Willebrand disease N ADD/ADHD N Eating Disorder N Anemia N Diabetes Mellitus (non-insulin dependent ) N Ovarian Problems N Multiple Sclerosis N Gonorrhea N Frequent Urinary Tract infections N Osteopenia N Headaches/migraines N GERD (reflux) N Ovarian Cancer N Diabetes (insulin dependent) N Seizures/Epilepsy N Fibroids N Heart Attack N Asthma N Lupus N Endometrial Cancer N Rubella N Blood Clotting Disorder N Bipolar Disorder N Diabetes Mellitus (during ) N Ulcerative Colitis N Hepatitis N Heart Disease N Pulmonary Embolism N RPR N Chicken Pox N Osteoporosis N Gynecological History Statement/Question Response Date of last HPV 10/30/2021 Date of LMP 10/27/2024 HPV Vaccine N Date of Last Pap Smear 10/30/2021 Current Control Method None Age at Menarche 13 Obstetrics History GPAL:G 3 P 1 2 0 2 Type Value Full Term 1 Premature 2 Living 2 Total 3 Past Encounters Encounter ID Performer Location Encounter Start Date Encounter Closed Date Diagnosis/Indication Diagnosis SNOMED-CT Code Diagnosis ICD10 Code Diagnosis Note [id number] Paulette Escoto DO [facility] [address] [place] [address] 10/30/2021 14:45:15 11/05/2021 15:23:38 Gynecologic examination 62775603 Z01.419 Screening for malignant neoplasm of cervix 754729532 Z12.4 Venereal d isease screening 636005083 Z11.3 [id number] Tess Arredondo CNM [facility] [address] [place] [address] 05/01/2022 13:35:06 05/01/2022 18:02:18 Acute pelvic pain 027725381 R10.2 Acute urin moy tract infection 647669211 N39.0 Pt was seen in the ED yesterday and received antibiotic s but has not picked them up yet. Reports that she was told that ED provider was not sure if she has UTI or not. On exam she has significan t tenderness and +cervical motion tenderness . Discussed findings w/pt and will schedule for US to evaluate pelvic structures . She does have h/o ovarian cysts. PA sent [id number] NOLAN CARMONA MD [facility] [address] [place] [address] 05/18/2022 16:06:43 05/19/2022 09:27:05 Pain in pelvis 29086134 R10.2 Ruptured c yst of ovary [id number] N83.209 Contracept ion care management [id number] Z30.9 [id number] Ed Altamirano DO [facility] [address] [place] [address] 11/05/2024 15:03:42 11/06/2024 09:39:31 Acute vaginitis [id number] N76.0 We obtained a vaginal swab in the office today. Venereal d isease screening [id number] Z11.3 Health Concerns Section Related Observation LastModified by Organization Detai ls LastModified Time None Recorded Concern Status LastModified by Organization Details LastModified Time None Recorded Advance Directives Directive None Recorded Payers Encounter Date Sequence Insurance Name Policy Number Policy Jameson Covered Member ID Jameson Member ID Guarantor Name 10/30/2021 1 [place] [facility] Gricel Meade [id number] Tamara Meade 05/01/2022 1 [facility] ([facility] Tamara Meade [id number] Tamara Meade 05/18/2022 1 [facility] ([facility] Tamara Meade [id number] Tamara Meade 11/05/2024 1 [facility] (MEDICAID HMO) [id number] Tamara Meade [id number] Tamara Meade Notes Date Note Type Note Provider Name and Address Organization Details Recorded Time 10/30/2021 text/html Patient presents for annual exam with pap. Last pap:01/2019. Results: normalLMP: 10/23/21 STD screening: patient desires Paulette Escoto DO [address] [place], [address], [facility] 10/30/2021 18:45:22 05/01/2022 text/html Patient is being seen today for BV or UTI. Seen at the ER yesterday & 2 wks ago for urgent care. Everything was coming back negative. Tess Arredondo CNM [address] [facility], [place], [address], [facility] 05/01/2022 17:47:30 05/18/2022 text/html pt is here for pelvic US today 05/18.pt states she went to ER for a pop she felt in her pelvic area and had sharp pain shooting through her rt side.pt states on US it looked like a ruptured cyst.pt states she wants to talk about testing for cervical cancer, etc.pt wants to discuss all this today 05/18. NOLAN LOZADA MD [facility], [place], [address], [facility] 05/18/2022 17:20:24 11/05/2024 text/html Vaginal Infection/Discharge Reported bypatient.Severity: moderate Duration/Started:>1 month Associated Symptoms:vaginal itching;vaginal burning;pelvic pain The patient verbally consented to documentation via virtual scribe for this encounter. Tamara Meade is a 34 year old female who presents today for follow up. Ed Altamirano, [address] [facility], [place], [address], [facility] 11/05/2024 21:58:33 OBGyn Episode No OBEpisode recorded.
--- OUTSIDE RECORDS SUMMARY | 2025-02-04 19:00 | XMS_ITS | Clinical Summary ---
Author Organization [facility] Address [address] [place] [address] Phone Care Team Providers Care Hot Die Press Feeder Name Role Phone Miriam Marcelino Primary Care Provider [phone] Allergies Active Allergy Reactions Criticality Noted Date Comments Penicillins Anaphylaxis 08/19/2024 Social History Tobacco Use Types Packs/Day Years Used Date Smoking Tobacco: Never Assessed Comments Unknown Sex and Gender Information Value Date Recorded Sex Assigned at Not on file Legal Sex Female 4:55 PM CDT Gender Identity Not on file Sexual Orientation Not on file Last Filed Vital Signs Vital Sign Reading Time Taken Comments Blood Pressure 138/93 08/19/2024 8:00 PM CDT Pulse 90 08/19/2024 8:00 PM CDT Temperature 37.2 C (99 F) 08/19/2024 8:00 PM CDT Respiratory Rate 20 08/19/2024 8:00 PM CDT Oxygen Saturation 97% 08/19/2024 8:00 PM CDT Inhaled Oxygen Concentration - - Weight - - Height - - Body Mass Index - - Plan of Treatment Health Maintenance Due Date Last Done Comments Hepatitis C Virus (HCV) Screening 1991 TdaP Immunization 1991 Hepatitis B Immunization (1 of 3 - 19+ 3-dose series) 2010 Pap Smear 02/11/2012 Cervical Cancer Screening (CCS) 2021 HPV/Cotest 2021 Influenza Immunization (#1) 2024 SARS-COV-2 Immunization () 07/22/2024 Respiratory Syncytial Virus (RSV) Immunization (Adult) (1 - 1-dose 75+ series) 2066 Meningococcal Immunization (ACWY) Aged Out No longer eligible based on patient's age to complete this topic Pneumococcal Immunization Combined Aged Out No longer eligible based on patient's age to complete this topic Rotavirus Immunization Aged Out No lo nger eligible based on patient's age to complete this topic Insurance [address] [place] [address] MEDICAID [employer] [address] [place] [address] Care Teams Hot Die Press Feeder Relationship Specialty Start Date End Date Miriam Marcelino PA [address] [address] PCP - General Adult Medicine 02/10/17
--- OUTSIDE RECORDS SUMMARY | 2025-02-04 21:03 | XMS_ITS | Clinical Summary ---
Author Organization [facility] Address [address] [place] [address] Phone Care Team Providers Care Linter Drier Operator Name Role Phone Miriam Marcelino Primary Care Provider [phone] Allergies Active Allergy Reactions Criticality Noted Date [...] [place] [address] MEDICAID [employer] [address] [place] [address] Care Teams Linter Drier Operator Relationship Specialty Start Date End Date Miriam Marcelino PA [address] [address] PCP - General Adult Medicine 02/10/17
--- OUTSIDE RECORDS SUMMARY | 2025-02-04 21:03 | XMS_ITS | Referral Summary ---
Author Organization [facility] Address [address] [place] [address] Care Team Providers Care Garment Parts Cutter Hand Name Role Phone Miriam Marcelino Primary Care Provider [phone] Source Comments [facility],non-[facility] Affiliates and Associated Physician Practices is amultiple site organization consisting of ambulatory clinics and hospital sitesin [place], [place], [place] and [place]. This disclosure is being madepursuant to the Care Everywhere program and may not contain all information available regarding this patient. Last updated 18.[facility] Allergies Active Allergy Reactions Criticality Noted Date [...] ve Non-react tania 04/30/2022 8:07 PM CDT [facility] Comment:No Laboratory eviden ce of HIV infection. Blood BLOOD SPECIMEN / Unknown Venipuncture / Unknown 04/30/2022 6:34 PM CDT 04/30/2022 6:38 PM CDT Renato Parr MD LAB - CHEMISTRY ORDERABLES [facility] [address] [place] [address], [facility] [phone] from Last 3 Months or Most Recently Relevant to Health Maintenance Care Teams Garment Parts Cutter Hand Relationship Specialty Start Date End Date Miriam Marcelino PA [address] [place] [address] PCP - General 10/21/18
--- OUTSIDE RECORDS SUMMARY | 2025-02-04 21:03 | XMS_ITS | Continuity of Care Document ---
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 Name Role Phone Harrison BOWMAN, Julieta Unavailable [...] 5.0-9.0 Final Protein Negative Negative Final [facility] [place] 1.030 1.001-1.035 Final Urobilinogen 0.2 E.U./dL 0.2-1.0E.U./ d L Final Advance Directives Directive Yes / No Effective Date File Name No Information Encounters Encounter Description Practice Location Reason(s) For Visit Diagnoses Date Provider Providers Copied on Encounter OFFICE/OUTPA TIENT VISIT, EST [facility], [facility], [place], [place], [id number], [place] tel:[phone] [facility] ultrasound result (chief complaint) Encounter to discuss test results [facility], [place], [address], [place]. tel:[phone] OFFICE/OUTPA TIENT VISIT, EST [facility], [address], [place], [place], [address], [place] tel:[phone] [facility] 2 results (chief complaint) Encounter to discuss test results 4 Harrison Parod [address], [place], [address], [place]. tel:[phone] [employer], [address], [place], [place], [address], [place] tel:[phone] [facility] (chief complaint) Caries 4 William Barnhart. [address], [place], [address], [place]. tel:[phone] OFFICE/OUTPA TIENT VISIT, EST [facility], [address], [place], [place], [address], [place] tel:[phone] [facility] Vaginal discharge x3 weeks (chief complaint) Problematic vaginal dischargeSensat ion of pressure in bladder area 4 Mikal Ledesma. [address] [place], [address], [place]. tel:[phone] [facility], [address], [place], [place], [address], [place] tel:[phone] [facility] Telemedicine (chief complaint)Monica k pain (chief complaint) Chronic midline low back pain with right-sided sciaticaOther chronic pain 4 Jose Cassidy. [address] [place], [address], [place]. tel:[phone] [facility], [address], [place], [place], [address], [place] tel:[phone] [facility] (chief complaint) Caries 4 William Barnhart. [address], [place], [address], [place]. tel:[phone] OFFICE/OUTPA TIENT VISIT, EST [facility], [address], [place], [place], [address], [place] tel:[phone] [facility] 2 vaginal concerns (chief complaint) Vaginal dischargeFemale pelvic pain March-0 4 Harrison Pardo [address], [place], [address], [place]. tel:[phone] OFFICE/OUTPA TIENT VISIT, EST [facility], [address], [place], [place], [address], [place] tel:[phone] [facility] results (chief complaint) Encounter to discuss test results Feb- 4 Marvin Johnson. [address], [place], [place], [address], [place]. tel:[phone] [facility], [address], [address], [place] tel:[phone] [facility] (chief complaint) Caries Feb- 4 William Barnhart. [address], [place], [address], [place]. 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 [address], [place], [place], [address], [place]. tel:[phone] [facility], [address], [place], [place], [address], [place] tel:[phone] [facility] (chief complaint) Caries Feb- 4 William Majanoa. [address], [place], [address], [place]. tel:[phone] [facility], [address], [place], [place], [address], [place] tel:[phone] [facility] Discuss test results (chief complaint)Hari o Video Visit (chief complaint) Low vitamin D levelEncounter to discuss test results 4 Rashaun Powell. [address] [place], [address], [place]. tel:[phone] [facility], [address], [place], [place], [address], [place] tel:[phone] [facility] prophy (chief complaint) Dental caries 4 [facility]. [address], [place], [address], [place]. tel:[phone] [facility], [address], [place], [place], [address], [place] tel:[phone] [facility] Check-up/aMrija lee (chief complaint) Dental caries 4 Fletcher Eladia. [address], [place], [address], [place]. tel:[phone] [facility], [address], [place], [place], [address], [place] tel:[phone] [facility] f/u (chief complaint) Other fatigueObesity (BMI 30.0-34.9)Renal cyst, leftBilateral thigh painPain in left thigh 4 Jay Gilliam. [address] [place], [address], [place]. tel:[phone] OFFICE/OUTPA TIENT VISIT, EST [facility], [address], [place], [place], [address], [place] tel:[phone] [facility] incomplete bladder emptying and recurrent UTI (chief complaint) Incomplete bladder emptyingRecurre nt UTIObesity (BMI 30.0-34.9) 4 Jose Khanh. [address] [place], [address], [place]. tel:[phone] [facility], [address], [place], [place], [address], [place] tel:[phone] [facility] Discuss test results (chief complaint)Bee ble to completely empty the bladder (chief complaint)Tel e Health (chief complaint) Incomplete bladder emptyingEncount er to discuss test results 4 Rashaun Powell. [address] [place], [address], [place]. tel:[phone] OFFICE/OUTPA TIENT VISIT, EST [facility], [address] [place], [address], [place] tel:[phone] [facility] Lab results (chief complaint) Persistent headachesEncoun ter to discuss test results 4 Gil Moreira. [address] [place], [address], [place]. tel:[phone] [facility], [address], [place], [place], [address], [place] tel:[phone] [facility] mri reordered (chief complaint) Persistent headaches 4 Jay Gilliam. [address] [place], [address], [place]. tel:[phone] OFFICE/OUTPA TIENT VISIT, EST [facility], [address], [place], [place], [address], [place] tel:[phone] [facility] dysuria (chief complaint)scr eening for STD (chief complaint)In Person visit/ Walk In (chief complaint) DysuriaScreenin g for STD (sexually transmitted disease) 4 Rashaun Powell. [address] [place], [address], [place]. tel:[phone] [facility], [address], [place], [place], [address], [place] tel:[phone] [facility] Telehealth (chief complaint) No Information 0 4 Saskia Quezada. [address] [place], [address], [place]. tel:[phone] [facility], [address], [place], [place], [address], [place] tel:[phone] [facility] +headaches /er f/u (chief complaint) Persistent headaches 3 Jaysravan Gilliam. [address] [place], [address], [place]. tel:[phone] [facility], [address], [place], [place], [address], [place] tel:[phone] [facility] Hospital follow-up (chief complaint)Tel e Health (chief complaint) Recurrent headacheHospita l discharge follow-up 3 Rashaun Powell. [address] [place], [address], [place]. tel:[phone] OFFICE/OUTPA TIENT VISIT, EST [facility], [address], [address], [place] tel:[phone] [facility] UTI (chief complaint) Acute cystitis without hematuria 3 Jose Cassidy. [address] [place], [address], [place]. tel:[phone] [facility], [address], [place], [place], [address], [place] tel:[phone] [facility] Hospital discharge follow -up (chief complaint)Hea daches (chief complaint)Tel e Health (chief complaint) Other migraine without status migrainosus, not intractableHosp ital discharge follow-up 3 Rashaun Powell. [address] [place], [address], [place]. 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 [address], [place], [place], [address], [place]. tel:[phone] OFFICE/OUTPA TIENT VISIT, EST [facility], [address], [place], [place], [address], [place] tel:[phone] [facility] Lab results (chief complaint) Obesity (BMI 30-39.9)Renal cyst, leftPlantar fasciitis, left 3 Gil Moreira. [address] [place], [address], [place]. tel:[phone] [facility], [address], [place], [place], [address], [place] tel:[phone] [facility] results (chief complaint)tel ehealth (chief complaint) Encounter to discuss test results 3 Jeremiahokoro Elizabeth. [address], [place], [place], [address], [place]. tel:[phone] [facility], [address], [place], [place], [address], [place] tel:[phone] [facility] Functional dyspepsia 3 Gil Moreira. [address] [place], [address], [place]. tel:[phone] OFFICE/OUTPA TIENT VISIT, EST [facility], [address], [place], [place], [address], [place] tel:[phone] [facility] annual exam (chief complaint) Encounter for gynecological examination (general) (routine) without abnormal findingsContact with and (suspected) exposure to infections with a predominantly sexual mode of transmissionEnc ounter for screening breast examinationScre ening for cervical cancerScreening for HPV (human papillomavirus) Vaginal dischargeBreast pain in femaleBreast lump in female 3 Marvin Johnson. [address], [place], [place], [address], [place]. tel:[phone] OFFICE/OUTPA TIENT VISIT, [facility], [address], [place], [place], [address], [place] tel:[phone] [facility] Dysuria x 1 week (chief complaint) Encntr for general adult medical exam w/o abnormal findingsRight arm numbnessDysuria Proteinuria, unspecified typeFunctional dyspepsia 3 Gil Moreira. [address] [place], [address], [place]. tel:[phone] OFFICE/OUTPA TIENT VISIT, [facility], [address], [place], [place], [address], [place] tel:[phone] [facility] Vaginal itching (chief complaint) Vaginal candidiasis 3 Jose Cassidy. [address] [place], [address], [place]. tel:[phone] [facility], [address], [place], [place], [address], [place] tel:[phone] [facility] routine exam (chief complaint) Myopia, bilateralBilate ral astigmatism 3 Lilian Bennett. [address], [place], [address], [place]. tel:[phone] OFFICE/OUTPA TIENT VISIT, EST [facility], [address] [place], [address], [place] tel:[phone] [facility] Vaginal issues (chief complaint)In Person visit (chief complaint) Bacterial vaginosisOther specified bacterial agents as the cause of diseases classified elsewhereVagina l candidiasis 3 Rashaun Powell. [address] [place], [address], [place]. tel:[phone] OFFICE/OUTPA TIENT VISIT, [facility], [address] [place], [address], [place] tel:[phone] [facility] F/U H. Pylori (chief complaint) H. pylori infection 3 Gil Moreira. [address] [place], [address], [place]. tel:[phone] OFFICE/OUTPA TIENT VISIT, [facility], [address], [address], [place] tel:[phone] [facility] *breast pain/lump (chief complaint) Breast lump in femaleBreast pain in female 3 Marvin Johnson. [address], [place], [address], [place]. tel:[phone] OFFICE/OUTPA TIENT VISIT, [facility], [address], [address], [place] tel:[phone] [facility] Lab results (chief complaint) H. pylori infectionVitami n D insufficiency 3 Gil Moreira. [address] [place], [address], [place]. tel:[phone] [facility], [address] [place], [address], [place] tel:[phone] [facility] TeleMed (chief complaint)H. Pylori stool results (chief complaint) H. pylori infectionChroni c nauseaFunctiona l dyspepsiaGenera lized abdominal pain 3 Gil Moreira. [address] [place], [address], [place]. tel:[phone] OFFICE/OUTPA TIENT VISIT, [facility], [address] [place] [address] Ave [address], [place], [place], [address], [place] tel:[phone] [facility] Establish care (chief complaint) Obesity (BMI 30-39.9)Encount er to establish careLipid screeningChroni c nauseaFunctiona l dyspepsiaGenera lized abdominal painFamily history of colon cancerAnxiety about healthHistory of ovarian cystPelvic painChronic radicular pain of lower backOther chronic painDecreased vision in both eyes 3 Gil Moreira. [address] [place], [address], [place]. tel:[phone] Family History Family Member Type Diagnosis Age At Onset Mother Problem Alive and well Father Problem Alive and well Payers Payer name Insurance type Covered libertarian ID Authorrama skinner(s) [facility] [id number] [facility] Managed Wrap [id number] Social History Type Description Quantity Date Captured [...] She states occasional vaginal irritation. 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, denies fever, chills.PMH: Ovarian cyst, Left kidney cystSx: section 2011OB: 2008, 2009 (2 living, 2010- premature @ 6 months)SALES PROGRAM MANAGER: PAP: NILM, HPV(-) 08/30/2023LMP: 04/07/2024ontraceptive: DeniesUA negative [...] Order Marcell rossi vaginitis, trichomonas vaginalis, yeast ([id number]), Appointment on: , Collected on: , Sent on: Sent Future Order: Radiology Order US Breast Bilateral ([id number]), Sent on: Sent Future Order: Radiology Order MA Digital Diagnostic Mammo Bilat W CAD ([id number]), Sent on: Sent History Of Present Illness Encounter Date Complaint History Of Prese nt Illness ultrasound result 34-year-old fe male presents to the clinic for ultrasound result regarding c/o white-yellowish vaginal discharge, vaginal itching, pelvic pain x 1 month. Patient reports symptoms have improved since last visit. She states occasional vaginal irritation. 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 She states LMP 04/07/2024, denies SALES PROGRAM MANAGER complaints at this time. Lab results reviewed [...] it could be pressure on her bladder. 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 Her last menstrual period was on 03/16/2024.Her menstrual periods are regular, just last one was noted to be darker than usual. She has heavy flow on days 3 to 5 and her periods usually starts at the end of the month. Back pain Onset: 1 year ag o. Duration: 1 Year. The problem is worsening. It occurs intermittently. Location of pain is lower back. Pain is radiated to the right calf, right foot and right thigh. The patient describes the pain as an ache and sharp. Context: no injury. Symptoms are aggravated by lying/rest.The patient denies relieving factors. Additional information: Denies saddle paresthesia. Telemedicine The symptoms beg an 1 day ago and generally lasts 1 Day. The patient verbally consented to have their visit with [employer] [facility] via Telehealth for their concern.Reason for Telehealth visit: State guidelines promulgate patients should remain at home.Telehealth Platform used: TelephoneIs this visit type clinically appropriate for this patient? YesIs this encounter in place of a face -to-face encounter? YesTotal length of Telehealth visit: 15 minutes Filling vaginal concerns 34-year-old fem celine presents to the clinic c/o white-yellowish vaginal discharge, vaginal itching, pelvic pain x 1 month. Patient reports she was evaluated in urgent care previously, was prescribed and taking cream and pill. She denies dysuria, dyspareunia, vaginal odor, fever, chills, nausea, vomiting. PMH: Ovarian cyst, Left kidney cystSx: section 2011OB: 2008, 2009 (2 living, 2010- premature @ 6 months)SALES PROGRAM MANAGER: PAP 2022 normal per ptLMP: 4Contraceptive: DeniesUA [...] quinn consented to have their visit with [employer] [facility] via Telehealth for their concern.> Telehealth Platform used: Ricardo Video Call> Is this visit type clinically appropriate for this patient? Yes> Is the encounter in place of a nhgu-oe-kvdw encounter? Yes> Total Length of Telehealth Visit: 15 minutes> The patient understands and consents to this telehealth (video) encounter> Date of verified by patient prophy Check-up/Cleaning f/u +Today, the clarke ent verbally consented to have their visit with [facility] via Telehealth for their concern.Telehealth Platform used: TelephoneIs this visit type clinically appropriate for this patient? Yes. Is this encounter in place of a lwia-ha-nuxn encounter? Yes. Total Length of Telehealth Visit: [...] ly consented to have their visit with [facility] via Telehealth for their concern.> Telehealth Platform used: Phone Call> Is this visit type clinically appropriate for this patient? Yes> Is the encounter in place of a fsxp-za-kwpb encounter? Yes> Total Length of Telehealth Visit: [...] verbally consented to have their visit with [facility] via Telehealth for their concern.Telehealth Platform used: TelephoneIs this visit type clinically appropriate for this patient? Yes. Is this encounter in place of a ofwc-rq-imhj encounter? Yes. Total Length of Telehealth Visit: [...] verbally consented to have their visit with [facility] via Telehealth for their concern.Telehealth Platform used: TelephoneIs this visit type clinically appropriate for this patient? Yes. Is this encounter in place of a hgeb-sz-txhu encounter? Yes. Total Length of Telehealth Visit: [...] for hospital discharge follow-up.She was seen at [facility] on 10/19/2023 with symptoms of headache [...] ly consented to have their visit with [facility] via Telehealth for their concern.> Telehealth Platform used: Phone Call> Is this visit type clinically appropriate for this patient? Yes> Is the encounter in place of a kwqe-vq-tkbg encounter? Yes> Total Length of Telehealth Visit: [...] ly consented to have their visit with [facility] via Telehealth for their concern.> Telehealth Platform used: Phone Call> Is this visit type clinically appropriate for this patient? Yes> Is the encounter in place of a uecd-lj-tkpz encounter? Yes> Total Length of Telehealth Visit: 15 minutes> The patient understands and consents to this telehealth(audio) encounter> Date of verified by patient Hospital discharge follow -up Ziggy Meade is a 33-year-old female in a telephone encounter today requesting for a test.She has been having a lot of headache for the past 2 weeks. She went to [facility] on 10/19/2023 and they worked her up. [...] verbally consented to have their visit with [facility] via Telehealth for their concernReason for Telehealth Visit: State guidelines that residents should remain at home [Home-stay order and/or Quarantine]Telehealth Platform used: TelephoneIs this visit type clinically appropriate for this patient? YesIs this encounter in place of a tdxa-jg-othf encounter? YesTotal Length of Telehealth Visit: 15 [...] pain/lump on her right breast Lab results TeleMed The patient vincenzo waynefeliz consented to have their visit with [facility] via Telehealth for their concern.Reason for Telehealth visit: State guidelines require current stay at home Telehealth Platform used: TelephoneIs this visit type clinically appropriate for this patient: yesIs this encounter in place of a face -to-face encounter? yesTotal length of Telehealth visit: 15 minutes H. Pylori stool results Establish care 32-year old femrob le to establish care. PMH:ruptured right ovarian cystPSH: 2011Both parents alive and wellGrandfather h/o colon cancerPatient is single lives in an apartment, has two daughters. She moved here from [place] in November 2022. Reports her last pap [...] discuss test results Let next provider ritchie mora if occlusal is high during next appt Related to Caries Come back to continu e with operative fillings Related to Caries A urine sample will be collected for culture and sensitivity. Related to Sensation of pressure in bladder area A vaginal swab will be collected for further analysis. Advised to use vwve-gfi-swkoggo moisturizers. A prescription for terconazole cream and [...] pt.Follow-up 1 week. Related to Vaginal discharge UA negative today.Bean reswab collected.Pelvic ultrasound referral.ER precautions discussed with pt.Follow-up 1 week. Related to Female pelvic pain Come back to continu e with operative fillings Related to Caries Let next provider ritchie mora if occlusal is high during next appt Related to Caries follow up as needed and for annual exams Related to Encounter to discuss test results Come back to continu e with operative fillings Related to Caries Do not eat for the n ext hours until the anesthesia wears away Related to Caries prescription sent to pharmacyfollow up as needed and for annual exam Related to Vaginal odor Come back to continu e with operative fillings Related to Caries Let next provider kn ow if occlusal is high during next appt Related to Caries Advised patient to e at foods high in Vitamin D like fish, cod-liver oil, eggs, fortified cow's milk, bread and cereals and sun exposure. Related to Low vitamin D level This note has been c reated using [employer] and was completed in the EHR by M Related to Encounter to discuss test results nutrition counseling Related to Dental caries oral hygiene instruction Related to Dental caries patient dental education Related to Dental caries patient dental education Related to Dental caries oral hygiene instruction Related to Dental caries nutrition counseling Related to Dental caries +take meds as direct ed+f/u in the clinic for exam+if worsen go to ER Related to Bilateral thigh pain take meds as directe d+f/u in the clinic for exam+if worsen go to ER Related to Other fatigue Discussed healthy we ight loss through diet and exercise. Advised to decrease intake of soda and juices, sweets, cookies and chips. Advised at least 30 minutes of exercise 3-5 x a week. Limit TV/videos/media time to less than 2 hours a day. Related to Obesity (BMI 30.0-34.9) stable Related to Renal cyst, left UA dip today is unre markable except for blood in the urine, but patient is on her menstrual period.Follow up with the urologist as scheduled. Related to Recurrent UTI She will follow up w ith the urologist as scheduled. Related to Incomplete bladder emptying Discussed healthy we ight loss through diet and exercise. Advised to decrease intake of soda and juices, sweets, cookies and chips. Advised at least 30 minutes of exercise 3-5 x a week. Limit TV/videos/media time to less than 2 hours a day.This note has been created using [employer] and was completed in the EHR by Susannah Berrios Related to Obesity (BMI 30.0-34.9) Urology referral made. Related t o Incomplete bladder emptying Labs dated 11/29/2023 discussed in detail. Questions/Concerns answered. This note has been created using [employer] and was completed in the EHR [...] placed today.This note has been created using [employer] and was completed in the EHR [...] caffeine intake.This note has been created using [employer] and was completed in the EHR by Deon Gray. Related to Recurrent headache Macrobid ordered. In structed on the use of medication and to finish the whole course. Advised to drink adequate amount of fluid and may drink Cranberry juice. Advised to wash after sexual intercourse. RTC as needed. Related to Acute cystitis without hematuria This note has been c reated using [employer] and was completed in the EHR by Griselda Vela Related to Hospital discharge follow-up prescription sent to pharmacyfollow up as needed and for annual exam Related to Vaginal itching take meds as directe d. stretching exercises. Related to Plantar fasciitis, left Continue to monitor. F/U if any new pain or symptoms Related to Renal cyst, left Decrease processed food intake. Related to Obesity (BMI 30-39.9) Increase physical activity. Rela jojo to Obesity (BMI 30-39.9) follow up as needed and for annual [...] This note has been c reated using [employer] and was completed in the EHR by Byron Related to Vaginal candidiasis Complete H. Pylori testing, f/u post. Related to H. pylori infection follow up [address] imaging obtained to review results follow up as needed and for annual exams Related to Breast pain in female Start daily multivitamin Related to Vitamin D insufficiency Continue ABX, repeat H. Pylori stool in 1 month. Related to H. pylori infection Reports no abdominal issues since starting treatment Related to H. pylori infection Medications as presc ribed, f/u in 2 weeks as scheduled for other lab result Related to H. pylori infection Increase physical activity. Rela jojo to Obesity (BMI 30-39.9) Decrease processed food intake. Related to Obesity (BMI 30-39.9) Assessments Type Assessment Date assessment Encounter to discuss test result s Mental Status Date Cognitive Assessment Orientation - [place] ed to time, place, person, situation. Patient Care Teams Name Effective Dates (start - stop) Status Members No Information
--- OUTSIDE RECORDS SUMMARY | 2025-02-04 21:03 | XMS_ITS | Clinical Summary ---
Author Organization [facility] Address [address] [place] [address] Care Team Providers Care Substance Abuse Prevention Coordinator Name Role Phone Miriam Marcelino Primary Care Provider [phone] Source Comments [facility],non-owned Affiliates and Associated Physician Practices is amultiple site organization consisting of ambulatory clinics and hospital sitesin [place], [place], [place] and [place]. This disclosure is being madepursuant to the Care Everywhere program and may not contain all information available regarding this patient. Last updated 18.[facility] [employer] Allergies Active Allergy Reactions Criticality Noted Date [...] ve Non-react tania 04/30/2022 8:07 PM CDT [facility] Comment:No Laboratory eviden ce of HIV infection. Blood BLOOD SPECIMEN / Unknown Venipuncture / Unknown 04/30/2022 6:34 PM CDT 04/30/2022 6:38 PM CDT Renato Parr MD LAB - CHEMISTRY ORDERABLES Performing Organization Address City/State/[facility] Co de Phone Number [facility] [address] [place] [address], [facility] [phone] from Last 3 Months or Most Recently Relevant to Health Maintenance Care Teams Substance Abuse Prevention Coordinator Relationship Specialty Start Date End Date Miriam Marcelino PA [address] [place] [address] PCP - General 10/21/18
--- OUTSIDE RECORDS SUMMARY | 2025-02-04 21:04 | XMS_ITS | Patient Health Summary ---
Author Organization [facility] Address [address] [place] [address] Care Team Providers Care Serging Machine Operator Name Role Phone Miriam Marcelino Primary Care Provider [phone] [facility],non-owned Affiliates and Associated Physician Practices is amultiple site organization consisting of ambulatory clinics and hospital sitesin [place], [place], [place] and [place]. This disclosure is being madepursuant to the Care Everywhere program and may not contain all information available regarding this patient. Last updated 18.[facility] Allergies * Sulfa Drugs(Swelling) Medications * Be aware that medications may not be up to date on this document. Alwaysverify current medications with the patient. * erythromycin (ERYDERM) 2 % solution(Started 04/20/2018) Apply to affected area 2 times daily Apply to navas area twice daily for 3 days when you celeste. 30 days supply. 5 refills remaining * [...] tania Non-react tania 04/30/2022 8:07 PM CDT [facility] Comment: No Laboratory evidence of syphilis infection. Note: Circulating antibodies may be low or undetectable in early infection. If recent exposure is suspected, re-draw sample in 2-4 weeks and repeat testing. Blood BLOOD SPECIMEN / Unknown Venipuncture / Unknown 04/30/2022 6:34 PM CDT 04/30/2022 6:38 PM CDT Renato Parr MD LAB - SEROLOGY ORDERABLES [address] [address], [facility] [phone] * HIV-1 HIV-2 ANTIBODY + HIV P24 AG PANEL (04/30/2022 6:34 PM CDT) Pathologist [facility] HIV Antigen/Antibod y 1 & 2 Non-reacti ve Non-react tania 04/30/2022 8:07 PM CDT [facility] Comment:No Laboratory eviden ce of HIV infection. Blood BLOOD SPECIMEN / Unknown Venipuncture / Unknown 04/30/2022 6:34 PM CDT 04/30/2022 6:38 PM CDT Renato Parr MD LAB - CHEMISTRY ORDERABLES Performing Organization Address [facility]/ZIP Co de Phone Number [address] [address], [facility] [phone] * (ABNORMAL) CBC W AUTO DIFFERENTIAL (04/30/2022 3:41 PM CDT) Pathologist [facility] WBC 4.9 3.5 - 10.5 10 3/uL 04/30/2022 4:18 PM CDT [facility] RBC 4.59 3.80 - 5.20 10 6/uL 04/30/2022 4:18 PM T [facility] Hemoglobin 12.2 12.0 - 15.6 g/dL 04/30/2022 4:18 PM T [facility] Hematocrit 38.4 35.0 - 45.0 % 04/30/2022 4:18 PM CDT [facility] MCV 83.7 80.7 - 98.3 fL 04/30/2022 4:18 PM CDT [facility] MCH 26.6(L) 26.7 - 34.0 pg 04/30/2022 4:18 PM CDT [facility] MCHC 31.8 30.8 - 35.9 g/dL 04/30/2022 4:18 PM CDT [facility] Platelet Count 256 150 - 400 10 3/uL 04/30/2022 4:18 PM [facility] RDW-SD 43.8 36.0 - 50.0 fL 04/30/2022 4:18 PM [facility] RDW-CV 14.4 11.2 - 14.8 % 04/30/2022 4:18 PM [facility] MPV 12.7 9.4 - 12.9 fL 04/30/2022 4:18 PM [facility] nRBC Absolute 0.00 0 10 3/uL 04/30/2022 4:18 PM [facility] nRBC Auto 0.0 0 /100 WBC 04/30/2022 4:18 PM [facility] Neutrophils % 54.6 35.0 - 70.0 % 04/30/2022 4:18 PM [facility] Lymphocytes % 34.0 20.0 - 43.0 % 04/30/2022 4:18 PM [facility] Monocytes % 10.2 5.0 - 13.0 % 04/30/2022 4:18 PM [facility] Eosinophils % 0.6 0.0 - 6.0 % 04/30/2022 4:18 PM [facility] Basophil % 0.4 0.0 - 2.0 % 04/30/2022 4:18 PM [facility] Neutrophils Absolute 2.7 1.6 - 7.0 10 3/uL 04/30/2022 4:18 PM [facility] Lymphocyte Absolute 1.7 1.1 - 3.9 10 3/uL 04/30/2022 4:18 PM [facility] Monocytes Absolute 0.50 0.26 - 1.07 10 3/uL 04/30/2022 4:18 PM [facility] Eosinophils Absolute 0.03 0.00 - 0.47 10 3/uL 04/30/2022 4:18 PM [facility] Basophils Absolute 0.02 0.00 - 0.08 10 3/uL 04/30/2022 4:18 PM [facility] Immature Granulocytes % 0.2 0.0 - 1.0 % 04/30/2022 4:18 PM [facility] Immature Granulocytes Absolute 0.01 04/30/2022 4:18 PM [facility] Blood BLOOD SPECIMEN / Unknown Venipuncture / Unknown 04/30/2022 3:41 PM CDT 04/30/2022 4:08 PM CDT Emigdio River PA-C LAB - HEMATOLOGY ORD ERABLES [facility] [address] [place] [address], [facility] [phone] * COMPREHENSIVE METABOLIC PANEL (04/30/2022 3:41 PM CDT) BUN 7 7 - 26 mg/dL 04/30/2022 4:33 PM [facility] Creatinine 0.65 0.56 - 0.96 mg/dL 04/30/2022 4:33 PM [facility] Sodium 138 136 - 145 mmol/L 04/30/2022 4:33 PM [facility] Potassium 4.0 3.5 - 4.5 mmol/L 04/30/2022 4:33 PM [facility] Chloride 105 98 - 107 mmol/L 04/30/2022 4:33 PM [facility] CO2 24 22 - 29 mmol/L 04/30/2022 4:33 PM [facility] Glucose 92 70 - 115 mg/dL 04/30/2022 4:33 PM [facility] Calcium 9.3 8.4 - 10.2 mg/dL 04/30/2022 4:33 PM [facility] Protein Total 7.7 6.0 - 8.3 g/dL 04/30/2022 4:33 PM [facility] Albumin 4.2 3.4 - 5.0 g/dL 04/30/2022 4:33 PM [facility] Bilirubin Total 0.7 0.2 - 1.2 mg/dL 04/30/2022 4:33 PM [facility] Alkaline Phosphatase 46 40 - 150 U/L 04/30/2022 4:33 PM [facility] ALT 18 5 - 55 U/L 04/30/2022 4:33 PM [facility] AST 25 5 - 34 U/L 04/30/2022 4:33 PM CDT [facility] Anion Gap 13 8 - 18 04/30/2022 4:33 PM CDT [facility] BUN/Creatinine Ratio 11 7 - 23 04/30/2022 4:33 PM CDT [facility] Osmolality Calculated 284 270 - 300 mOsm/kg 04/30/2022 4:33 PM CDT [facility] Albumin/Globulin Ratio 1.2 1.1 - 2.3 04/30/2022 4:33 PM T [facility] eGFR by CKD-EPI >90 >=90 mL/min/1.7 3 m2 04/30/2022 4:33 PM CDT [facility] Blood BLOOD SPECIMEN / Unknown Venipuncture / Unknown 04/30/2022 3:41 PM CDT 04/30/2022 4:08 PM CDT Emigdio [facility]CUALMed[facility]herence LAB - CHEMISTRY The [employer] HundredMyra JACQUES [facility] [address] [place] [address], [place] [phone] * LIPASE BLOOD (04/30/2022 3:41 PM CDT) Lipase 16 8 - 78 U/L 04/30/2022 4:33 PM CDT [facility] Blood BLOOD SPECIMEN / Unknown Venipuncture / Unknown 04/30/2022 3:41 PM CDT 04/30/2022 4:08 PM CDT Emigdio [place] PA-C LAB - CHEMISTRY [employer] [facility] [address] [place] [id number], [place] [phone] * BACTERIAL VAGINOSIS RAPID TEST (04/30/2022 3:38 PM CDT) Bacterial Vaginosis Rapid Negative Negative 04/30/2022 4:29 PM CDT [facility] Microbiology VAGINAL SWAB / Unknown Collection / Unknown 04/30/2022 3:38 PM CDT 04/30/2022 4:06 PM CDT Emigdio River PA-C LAB - MICROBIOLOGY O RDANTIONE [facility] [address] [place] [address], [place] [phone] * TRICHOMONAS VAGINALIS AMPLIFIED PROBE (04/30/2022 3:38 PM CDT) Trichomonas vaginalis Amplified Probe Negative Negative 05/01/2022 10:10 AM CDT [facility] Microbiology ENTIRE VAGINA / Unknown Collection / Unknown 04/30/2022 3:38 PM CDT 04/30/2022 4:06 PM CDT Narrative [facility] - 05/01/2022 10:10 AM CDT Results based on detection/no detection of ribosomal RNA by amplified method. Emigdio River PA-C LAB - MICROBIOLOGY O MARIBEL Performing Organization Address [facility]/ZIP Co de Phone Number [facility] [address] [place] [address], [facility] [phone] * CHLAMYDIA + GC AMPLIFIED PROBE (STL) (04/30/2022 3:38 PM CDT) Chlamydia Amplified Probe Negative Negative 05/01/2022 5:45 AM CDT [facility] GC Amplified Probe Negative Negative 05/01/2022 5:45 AM CDT [facility] Microbiology ENTIRE VAGINA / Unknown Collection / Unknown 04/30/2022 3:38 PM CDT 04/30/2022 4:06 PM CDT Narrative [facility] - 05/01/2022 5:45 AM CDT Results based on detection/no detection of ribosomal RNA by amplified method. Emigdio River PA-C LAB - MICROBIOLOGY O RDERABLES Performing Organization Address City/[facility]/ZIP Co de Phone Number [facility] [address] [place] [address], [facility] [phone] * (ABNORMAL) URINALYSIS REFLEX TO MICROSCOPIC NO CULTURE (04/30/2022 3:33 PM CDT) Color UA Yellow Straw, Yellow 04/30/2022 4:26 PM [facility] Clarity UA Slt Cloudy(A) Clear 04/30/2022 4:26 PM [facility] Specific [place] UA 1.021 1.005 - 1.030 04/30/2022 4:26 PM [facility] pH UA 5.0 5.0 - 8.0 pH 04/30/2022 4:26 PM [facility] Protein UA Negative Negative 04/30/2022 4:26 PM [facility] Glucose UA Negative Negative 04/30/2022 4:26 PM [facility] Ketone UA Trace(A) Negative 04/30/2022 4:26 PM [facility] Bilirubin UA Negative Negative 04/30/2022 4:26 PM [facility] Blood UA Negative Negative 04/30/2022 4:26 PM [facility] Nitrite UA Negative Negative 04/30/2022 4:26 PM [facility] Leukocyte Esterase Trace(A) Negative 04/30/2022 4:26 PM [facility] Urobilinogen UA Negative Negative mg/dL 04/30/2022 4:26 PM [facility] RBC UA 0-2 None Seen, 0-2, 3-5 /HPF 04/30/2022 4:26 PM [facility] WBC UA 0-5 None Seen, 0-5 /HPF 04/30/2022 4:26 PM [facility] Bacteria UA 2+(A) None /HPF 04/30/2022 4:26 PM [facility] Squamous Epithelial Cells UA 0-2 None Seen, 0-2, 3-5 /HPF 04/30/2022 4:26 PM [facility] Mucus UA 3+ /LPF 04/30/2022 4:26 PM [facility] Urine URINE SPECIMEN OBTAINED BY CLEAN CATCH PROCEDURE / Unknown Collection / Unknown 04/30/2022 3:33 PM CDT 04/30/2022 4:06 PM CDT Narrative [facility] - 04/30/2022 4:26 PM CDT Emigdio River PA-C LAB - URINALYSIS ORD ERABLES Performing Organization Address City/[facility]/ZIP Co de Phone Number [facility] [address] [place] [address], [place] [phone] * HCG URINE QUALITATIVE (04/30/2022 3:33 PM CDT) Test Urine Negative Negative 04/30/2022 4:35 PM CDT [facility] Urine URINE / Unknown Collection / Unknown 04/30/2022 3:33 PM CDT 04/30/2022 4:06 PM CDT Emigdio River PA-C LAB - URINALYSIS ORD ERABLES Performing Organization Address City/[facility]/ZIP Co de Phone Number [address] [address], [place] [phone] Care Teams Serging Machine Operator Relationship Specialty Start Date End Date Miriam Marcelino PA [address] [place] [phone] PCP - General 10/21/18
--- OUTSIDE RECORDS SUMMARY | 2025-02-04 21:04 | XMS_ITS | Clinical Summary ---
Author Organization [facility] Address [facility] [place] [address] Care Team Providers Care Service Observer Name Role Phone None, Provider MD Primary Care Provider Unavaila ble Allergies Active Allergy Reactions Criticality Noted Date Comments Sulfa Antibiotics Swelling 09/16/2021 Medications ondansetron 4 MG disintegrating tablet Take 1 tablet (4 mg total) by mouth every 8 (eight) hours as needed for Nausea. 20 tablet Active Social History Tobacco Use Types Packs/Day Years Used Date Smoking Tobacco: Never Smokeless Tobacco: Never Alcohol Use Standard Drinks/Week Comments Never 0 (1 standard drink = 0.6 oz pur e alcohol) Comments No Sex and Gender Information Value Date Recorded Sex Assigned at Not on file Legal Sex Female 8:29 PM CDT Gender Identity Not on file Sexual Orientation Not on file Last Filed Vital Signs Vital Sign Reading Time Taken Comments Blood Pressure 127/77 05/05/2022 9:01 AM CDT Pulse 73 05/05/2022 9:01 AM CDT Temperature 36.6 C (97.8 F) 05/05/2022 6:21 AM CDT Respiratory Rate 18 05/05/2022 9:01 AM CDT Oxygen Saturation 99% 05/05/2022 9:01 AM CDT Inhaled Oxygen Concentration - - Weight 97.6 kg (215 lb 2.7 oz) 05/05/2022 6:21 A M CDT Height 167.6 cm (5' 6 ) 05/05/2022 6:21 AM CDT Body Mass Index 34.73 05/05/2022 6:21 AM CDT Plan of Treatment Health Maintenance Due Date Last Done Comments Annual Physical 1994 Hepatitis C 2009 DTaP, Tdap and Td Vaccines ( 1 - Tdap) 2010 Hepatitis B Vaccines (1 of 3 - 19+ 3-dose series) 2010 COVID-19 Vaccine (1 - 2023-2 5 season) 2024 Influenza Adult (#1) 2024 Cervical Cancer Screening Pa p Smear (Age 30 to 64) Every 3 Years 04/30/2025 04/30/2022, 04/30/2022 Cervical Cancer Screening Pa p with HPV Testing (Age 30 to 64) Every 5 Years 04/30/2027 04/30/2022 Cervical Cancer Screening wi th HPV 04/30/2027 HPV Vaccines Aged Out No longer eligi ble based on patient's age to complete this topic Meningococcal B Vaccine Aged Out No l onger eligible based on patient's age to complete this topic Meningococcal Vaccine Aged Out No vitaliy evita eligible based on patient's age to complete this topic Pneumococcal Vaccine: Pediatrics (0 to 5 Years) and At-Risk Patients (6 to 64 Years) Aged Out No longer eligible b ased on patient's age to complete this topic RSV Immunizations Under 20 Months Aged Out No longer eligible b ased on patient's age to complete this topic [place] [phone] [employer] Care Teams Service Observer Relationship Specialty Start Date End Date None, Provider, PCP - General 09/16/21
[2025-02-04 21:31] LABS: BEDSIDEPREGUCG Negative (Negative)
[2025-02-04 21:36] LABS: Add Urine Microscopic? NO; Appearance Urine Clear (Clear); Bilirubin Urine Negative (Negative); Blood Urine Negative (Negative); Color Urine Yellow (Yellow); Glucose Urine UA Negative (Negative); Ketones Urine Trace mg/dL (Negative); Leukocyte Esterase Ur Negative LEU/UL (Negative); Nitrate Urine Negative (Negative); Protein Urine Negative (Negative); Specific Grav Ur 1.027 (1.001-1.035); pH Urine 7.5 (5.0-9.0)
--- NOTE | 2025-02-04 21:41 | ED_ITS ---
HPI - Back Pain/Injury General Chief Complaint: Back Pain/Injury Stated Complaint: back pain Time Seen by Provider: 02/04/25 20:36 Source: patient Mode of arrival: ambulatory Limitations: no limitations History of Present Illness HPI Narrative: Patient is a 34-year-old female who presents to the ED with report of lower back pain. Patient reports she was working out on Tuesday when she felt a pop in her lower back. She has had progressively worsening pain throughout her lower back since then. Pain worse with any type of movement, lying flat, has had difficulty sleeping to the pain. Has been taking Tylenol for the pain with some improvement. Would also like to be checked for urinary tract infection. Does have history of frequent UTIs. Has had intermittent pain radiating around to her lower abdomen. Denies significant dysuria or hematuria. Denies incontinence. Denies fevers, nausea, vomiting. Denies lower extremity pain, saddle anesthesia. Related Data Allergies Allergy/AdvReac Type Severity Reaction Status Date / Time Sulfa (Sulfonamide Allergy Severe SWELLING Verified 01/01/20 20:25 Antibiotics) Review of Systems Review of Systems: All systems reviewed & are unremarkable except as noted in HPI. All systems reviewed & are unremarkable except as noted in HPI and below PMFSH Past Medical History Medical History Patient denies significant medical history Surgical History Surgical History Hx of section Social History Social History Smoking status: Never smoker Exam Narrative: GENERAL: Well appearing, obese with BMI of 34.4, non-toxic, in no acute distress. HEAD: Normocephalic, atraumatic. RESPIRATORY: Airway patent, respirations nonlabored. CARDIOVASCULAR: Regular rate and rhythm ABDOMINAL: Soft, no significant tenderness throughout lower abdomen, nondistended. Normoactive BS. MUSCULOSKELETAL: Moves all extremities. No gross deformities. Mild tenderness to palpation diffusely throughout lumbosacral region, present in lower midline lumbar spine and into right paraspinal musculature. Sensation intact. No palpable bony deformities. SKIN: Warm, dry, normal color. NEURO: A&O X3. Speech clear. Cranial nerves II-XII grossly intact. Steady gait. No ataxic movements. PSYCHIATRIC: Appropriate mood and affect. Normal interaction. Course Vital Signs Vital signs: Vital Signs Temperature 97.6 F 02/04/25 17:31 Pulse Rate 85 02/04/25 17:31 Respiratory Rate 20 02/04/25 17:31 Blood Pressure 127/64 02/04/25 17:31 Pulse Oximetry 100 02/04/25 17:31 Oxygen Delivery Room Air 02/04/25 17:31 Temperature 97.6 F 02/04/25 17:31 Pulse Rate 86 02/04/25 22:36 Respiratory Rate 17 02/04/25 22:36 Blood Pressure 129/88 02/04/25 22:36 Pulse Oximetry 99 02/04/25 22:36 Oxygen Delivery Room Air 02/04/25 17:31 MDM - Back Pain/Injury MDM Narrative Medical decision making narrative: Patient presented to ED with lower back pain for the last few days after working out. Also concern for UTI. History of frequent UTIs. Vital signs are stable upon arrival. Patient?s pain is positional and localized to paraspinal muscles without signs of cord compression or cauda equina. Normal neurologic exams. No red flag symptoms. UA is clear. Showing trace ketones, no signs of infection. Urine negative. CT of abdomen/pelvis w/ lumbar spine obtained and without concerning findings. No spinal alignment or abnormalities. Suspect musculoskeletal etiology/lumbar strain. Patient ambulates with a steady gait and is felt to be a reasonable candidate for continued outpatient management. She is feeling better with supportive therapy. Will discharge with muscle relaxers and lidocaine patches for home use. Discussed further rice therapy, strict return precautions. She agrees with plan. Discharged in stable condition. Medical Records Attestation: I reviewed the patient's medical records. Lab Data Attestation: I reviewed the patient's lab results. Labs: Lab Results 02/04/25 02/04/25 Range/Units 21:29 21:30 Urine Color Yellow (Yellow) Urine Appearance Clear (Clear) Urine pH 7.5 (5.0-9.0) Ur Specific [place] 1.027 (1.001-1.035) Urine Protein Negative (Negative) mg/dL Urine Glucose (UA) Negative (Negative) mg/dL Urine Ketones Trace H (Negative) mg/dL Ur Blood (Man) Negative (Negative) Urine Nitrate Negative (Negative) Urine Bilirubin Negative (Negative) Urine Urobilinogen 1.0 (<2.0) mg/dL Leukocyte Esterase Rfl Negative (Negative) IGOR/UL POC Urine HCG, Qual Negative (Negative) Imaging Data Attestation: I personally reviewed and interpreted this imaging study as follows: Radiologist's impression: ITS Impressions Miscellaneous CT Procedure 02/04/25 23:20 IMPRESSION: No acute findings within the abdomen, pelvis, lower thoracic or lumbosacral spines, as detailed above Discharge Plan Discharge Clinical Impression: Strain of lumbar region Qualifiers: Encounter type: initial encounter Qualified Code(s): S39.012A - Strain of muscle, fascia and tendon of lower back, initial encounter Patient Disposition: Home, Self-Care Condition: Stable Instructions: Antibiotic Form, Acute Low Back Pain (ED), Lower Back Exercises (ED) Additional Instructions: Continue Tylenol and Ibuprofen as needed for pain. You may use ice/heat, lidocaine patches to area of pain. Take muscle relaxers as needed and prescribed. Recommend taking these at night as they may cause sedation. Do not drive, operate heavy machinery, drink alcohol while on muscle relaxers as this may cause further sedation. Follow-up with your primary care doctor for further evaluation. Return to the ED if you experience worsening or severe pain, recurrent injury, numbness in groin or legs, going to the bathroom without meaning to, unable to keep down food or drink, or any other symptoms of concern. Patient Language: Ivorian Prescriptions: New lidocaine 5 % adhesive patch,medicated 1 patch topical DAILY Qty: 15 0RF Rx Instructions: leave on most painful area for up to 12 hrs cyclobenzaprine 5 mg tablet 5 mg PO TID PRN (Reason: muscle spasm) Qty: 15 0RF No Action mupirocin 2 % ointment 1 applic TOPICAL TID Qty: 22 0RF Follow-up/Referrals: UNKNOWN,DOCTOR [Primary Care Provider] - Time of Disposition: 23:33
[2025-02-04] MEDS: LIDOCAINE 5% PATCH 1 PATCH TRANSDERM (22:15)
[2025-02-04] MEDS: ACETAMINOPHEN 500 MG TABLET 1000 MG PO (22:15)
[2025-02-04] MEDS: KETOROLAC (*BKC) 60 MG/2 ML VIAL IM (22:16)
[2025-02-04 22:36] VITALS: BP 129/88; PULSE 86; RESP 17; O2SAT 99
[2025-02-04 23:50] VITALS: BP 133/84; PULSE 78; RESP 14; O2SAT 100
[2025-02-04 23:52] VITALS: BP 133/84; PULSE 78; RESP 14; O2SAT 100
== END 2025-02-04 23:53 | disposition home or self-care (01) ==
PROVIDERS: Emergency Provider Physician Assistant
DX: S39.012A Strain of muscle, fascia and tendon of lower back, initial encounter (principal); X50.9XXA Other and unspecified overexertion or strenuous movements or postures, initial encounter
CPT/HCPCS: 72131; 74176; 81003; 81025; 96372; 99284; A9270; J1885

== ENCOUNTER 2025-07-06 13:51 | Emergency (ER) | payer OTHER, SELFPAY ==
--- NOTE | ~2025-07-06 | XR_ITS ---
EXAM: XR foot LT min 3V DATE: 07/06/2025 14:44 HISTORY: gout . COMPARISON: None available. FINDINGS: Normal mineralization. No fracture or dislocation. No lytic or blastic lesion. Mild degene rative change at the first MTP joint. Hallux valgus. No erosion or periosteal change. Soft tissues wi thin normal limits. IMPRESSION: No acute osseous finding the left foot. Reviewed, dictated and finalized at location K.
--- OUTSIDE RECORDS SUMMARY | 2025-07-06 13:53 | XMS_ITS | Clinical Summary ---
Author Organization [facility] Address [address] [place] [address] Phone Care Team Providers Care Activities Assistant Name Role Phone Miriam Marcelino Primary Care Provider [phone] Allergies Active Allergy Reactions Criticality Noted Date [...] 19+ 3-dose series) 2010 Pap Smear 02/11/2012 Human Papillomavirus (HPV) Immunization (1 - 3-dose SCDM series) 2018 Cervical Cancer Screening (CCS) 2021 HPV/Cotest 2021 SARS-COV-2 Immunization ( season) 2024 Influenza Immunization (#1) 2025 Respiratory Syncytial Virus (RSV) Immunization (Adult) (1 - 1-dose 75+ series) 2066 Meningococcal Immunization (ACWY) Aged Out No longer eligible based on patient's age to complete this topic Pneumococcal Immunization Combined Aged Out No longer eligible based on patient's age to complete this topic Rotavirus Immunization Aged Out No lo nger eligible based on patient's age to complete this topic Insurance MEDICAID [employer] Care Teams Activities Assistant Relationship Specialty Start Date End Date Miriam Marcelino PA [address] [address] PCP - General Adult Medicine 02/10/17
--- OUTSIDE RECORDS SUMMARY | 2025-07-06 13:53 | XMS_ITS | Encounter Summary ---
Author Organization [facility] Healthcare Address [address] [place] [address] Care Team Providers Care Animal Killer Name Role Phone Teri Rodriguez DNP Primary Care Provi sandy Encounter Details Date Type Department Care Team (Late st Contact Info) Description 06/13/2025 Results Follow-Up [facility] Family Medicine [address] [place] [address] [place] [address] Vitamin D 25 hydroxy, Urinalysis reflex to microscopic and culture Urine, clean voided, Thyroid Function [place], Additional followed-up results: 6 Social History Tobacco Use Types Packs/Day Years Used Date Smoking Tobacco: Never Smokeless Tobacco: Never AUDIT-C Answer Date Recorded Q1: How often do you have a drink containing alcohol? Never 06/10/2025 Q2: How many drinks containi ng alcohol do you have on a typical day when you are drinking? Patient does not drink Q3: How often do you have si x or more drinks on one occasion? 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
--- OUTSIDE RECORDS SUMMARY | 2025-07-06 13:54 | XMS_ITS | Clinical Summary ---
Author Organization [facility] Address [address] [place] [address] Care Team Providers Care Superintendent Generating Plant Name Role Phone Miriam Marcelino Primary Care Provider [phone] Source Comments [facility],non-[facility] Affiliates and Associated Physician Practices is amultiple site organization consisting of ambulatory clinics and hospital sitesin [place], [place], [place]. This disclosure is being madepursuant to the Care Everywhere program and may not contain all information available regarding this patient. Last updated 18.[facility] [employer] Allergies Active Allergy Reactions Criticality Noted Date Comments Sulfa Drugs Swelling 04/20/2018 Medications * Be aware that medications may not be up to date on this document. Alwaysverify current medications with the patient. erythromycin (ERYDERM) 2 % solutionIndicatio ns:Hirsutism,Post inflammatory hyperpigmentation ,Bacterial folliculitis Apply to affected area 2 times daily Apply to navas area twice daily for 3 days when you celeste. 30 days supply. 60 mL 5 8 Active spironolactone (ALDACTONE) 100 MG tabletIndications :Hirsutism Take 1 tablet by mouth once daily 30 day supply. 30 tablet 6 8 Active Active Problems Problem Noted Date Diagnosed [...] = 0.6 oz pur e alcohol) socially Comments No Sex and Gender Information Value Date Recorded Sex Assigned at Not on file Legal Sex Female 5:57 PM CDT Gender Identity Not on file [...] 2:48 PM CDT Height 167.6 cm (5' 6) 04/30/2022 2:48 PM CDT Body Mass Index 36.32 04/30/2022 2:48 PM CDT Plan of Treatment Health Maintenance Due Date Last Done Comments HEPATITIS C SCREENING 02/05/2009 DTAP/TDAP/TD VACCINES (1 - Tdap) 2010 HEPATITIS B VACCINE (1 of 3 - 19+ 3-dose series) 2010 HPV VACCINE (1 - 3-dose SCDM series) 2018 COVID-19 VACCINE (3 - 2023-2 5 season) 2024 12/10/2021, 11/19/2021 DEPRESSION SCREENING 11/21/2024 INFLUENZA VACCINE (#1) 2025 ZOSTER VACCINE (1 of 2) 2041 HIV [...] ve Non-react tania 04/30/2022 8:07 PM CDT [facility] Comment:No Laboratory eviden ce of HIV infection. Blood BLOOD SPECIMEN / Unknown Venipuncture / Unknown 04/30/2022 6:34 PM CDT 04/30/2022 6:38 PM CDT Renato Parr MD LAB - CHEMISTRY ORDERAB LES Final Result [facility] [address] [place] [address], [facility] [phone] from Last 3 Months or Most Recently Relevant to Health Maintenance Insurance [facility] Care Teams Superintendent Generating Plant Relationship Specialty Start Date End Date Miriam Marcelino PA [address] [place] [address] [place] [id number] PCP - General 10/21/18
--- OUTSIDE RECORDS SUMMARY | 2025-07-06 13:54 | XMS_ITS | Clinical Summary ---
Author Organization [facility] Address [facility] [place] [address] Care Team Providers Care Semiconductor Lab Technician Name Role Phone None, Provider MD Primary [...] A M CDT Height 167.6 cm (5' 6) 05/05/2022 6:21 AM CDT Body Mass Index 34.73 05/05/2022 6:21 AM CDT Plan of Treatment Health Maintenance Due Date Last Done Comments Annual Physical 1994 Hepatitis C 2009 DTaP, Tdap and Td Vaccines ( 1 - Tdap) 2010 Hepatitis B Vaccines (1 of 3 - 19+ 3-dose series) 2010 HPV Vaccines (1 - 3-dose SCD M series) 2018 COVID-19 Vaccine ( - 2023-2 5 season) 2024 Cervical Cancer Screening Pa p Smear (Age 30 to 64) Every 3 Years 04/30/2025 04/30/2022, 04/30/2022 Cervical Cancer Screening Pa p with HPV Testing (Age 30 to 64) Every 5 Years 04/30/2027 04/30/2022 Cervical Cancer Screening wi th HPV 04/30/2027 Meningococcal B Vaccine Aged Out No l onger eligible based on patient's age to complete this topic Meningococcal Vaccine Aged Out No vitaliy evita eligible based on patient's age to complete this topic Pneumococcal Vaccine: Pediatrics (0 to 5 Years) and At-Risk Patients (6 to 49 Years) Aged Out No longer eligible b ased on patient's age to complete this topic RSV Immunizations Under 20 Months Aged Out No longer eligible b ased on patient's age to complete this topic Insurance [address] [place] [id number] [employer] Care Teams Semiconductor Lab Technician Relationship Specialty Start Date End Date None, Provider, PCP - General 09/16/21
--- OUTSIDE RECORDS SUMMARY | 2025-07-06 13:54 | XMS_ITS | Continuity of Care Document ---
Author Organization [employer] Address [address] [place] [address] Phone Care Team Providers Care Renal Dialysis Rn Name Role Phone Harrison BOWMAN, Julieta Unavailable [...] 5.0-9.0 Final Protein Negative Negative Final Specirfic [place] 1.030 1.001-1.035 Final Urobilinogen 0.2 E.U./dL 0.2-1.0E.U./ d L Final Advance Directives Directive Yes / No Effective Date File Name No Information Encounters Encounter Description Practice Location Reason(s) For Visit Diagnoses Date Provider Providers Copied on Encounter OFFICE/OUTPA TIENT VISIT, EST [facility], [facility], [place], [place], [address], [place] tel:[phone] [facility] ultrasound result (chief complaint) Encounter to discuss test results [facility], [place], [address], [place]. tel:[phone] OFFICE/OUTPA TIENT VISIT, EST [facility], [address], [place], [place], [address], [place] tel:[phone] [facility] 2 results (chief complaint) Encounter to discuss test results 4 Harrison Pardo [address], [place], [address], [place]. tel:[phone] [facility], [address], [place], [place], [address], [place] tel:[phone] [facility] (chief complaint) Caries 4 William Barnhart. [address], [place], [address], [place]. tel:[phone] OFFICE/OUTPA TIENT VISIT, EST [facility], [address], [place], [place], [address], [place] tel:[phone] [facility] Vaginal discharge x3 weeks (chief complaint) Problematic vaginal dischargeSensat ion of pressure in bladder area 4 Mikal Ledesma. [address] [place], [address], [place]. tel:[phone] [facility], [address], [place], [place], [address], [place] tel:[phone] [facility] Telemedicine (chief complaint)Monica k pain (chief complaint) Chronic midline low back pain with right-sided sciaticaOther chronic pain 4 Jose Cassidy. [address] [place], [address], [place]. tel:[phone] [facility], [address], [place], [place], [address], [place] tel:[phone] [facility] (chief complaint) Caries 4 William Barnhart. [address], [place], [address], [place]. tel:[phone] OFFICE/OUTPA TIENT VISIT, EST [facility], [address], [place], [place], [address], [place] tel:[phone] [facility] 2 vaginal concerns (chief complaint) Vaginal dischargeFemale pelvic pain March-0 4 Harrison Pardo [address], [place], [address], [place]. tel:[phone] OFFICE/OUTPA TIENT VISIT, EST [facility], [address], [place], [place], [address], [place] tel:[phone] [facility] results (chief complaint) Encounter to discuss test results Feb- 4 Marvin Johnson. [address], [place], [place], [address], [place]. tel:[phone] [facility], [address], [address], [place] tel:[phone] [facility] (chief complaint) Caries Feb- 4 William Barnhart. [address], [place], [address], [place]. 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 [address], [place], [place], [address], [place]. tel:[phone] [facility], [address], [place], [place], [address], [place] tel:[phone] [facility] (chief complaint) Caries Feb- 4 William Majanoa. [address], [place], [address], [place]. tel:[phone] [facility], [address], [place], [place], [address], [place] tel:[phone] [facility] Discuss test results (chief complaint)Hari o Video Visit (chief complaint) Low vitamin D levelEncounter to discuss test results 4 Rashaun Powell. [address] [place], [address], [place]. tel:[phone] [facility], [address], [place], [place], [address], [place] tel:[phone] [facility] prophy (chief complaint) Dental caries 4 [facility]. [address], [place], [address], [place]. tel:[phone] [facility], [address], [place], [place], [address], [place] tel:[phone] [facility] Check-up/Marija lee (chief complaint) Dental caries 4 Fletcher Eladia. [address], [place], [address], [place]. tel:[phone] [facility], [address], [place], [place], [address], [place] tel:[phone] [facility] f/u (chief complaint) Other fatigueObesity (BMI 30.0-34.9)Renal cyst, leftBilateral thigh painPain in left thigh 4 Jay Gilliam. [address] [place], [address], [place]. tel:[phone] OFFICE/OUTPA TIENT VISIT, EST [facility], [address], [place], [place], [address], [place] tel:[phone] [facility] incomplete bladder emptying and recurrent UTI (chief complaint) Incomplete bladder emptyingRecurre nt UTIObesity (BMI 30.0-34.9) 4 Jose Khanh. [address] [place], [address], [place]. tel:[phone] [facility], [address], [place], [place], [address], [place] tel:[phone] [facility] Discuss test results (chief complaint)Bee ble to completely empty the bladder (chief complaint)Tel e Health (chief complaint) Incomplete bladder emptyingEncount er to discuss test results 4 Rashaun Powell. [address] [place], [address], [place]. tel:[phone] OFFICE/OUTPA TIENT VISIT, EST [facility], [address], [address], [place] tel:[phone] [facility] Lab results (chief complaint) Persistent headachesEncoun ter to discuss test results 4 Gil Moreira. [address] [place], [address], [place]. tel:[phone] [facility], [address], [place], [place], [address], [place] tel:[phone] [facility] mri reordered (chief complaint) Persistent headaches 4 Jay Gilliam. [address] [place], [address], [place]. tel:[phone] OFFICE/OUTPA TIENT VISIT, EST [facility], [address], [place], [place], [address], [place] tel:[phone] [facility] dysuria (chief complaint)scr eening for STD (chief complaint)In Person visit/ Walk In (chief complaint) DysuriaScreenin g for STD (sexually transmitted disease) 4 Rashaun Powell. [address] [place], [address], [place]. tel:[phone] [facility], [address], [place], [place], [address], [place] tel:[phone] [facility] Telehealth (chief complaint) No Information 0 4 Saskia Quezada. [address] [place], [address], [place]. tel:[phone] [facility], [address], [place], [place], [address], [place] tel:[phone] [facility] +headaches /er f/u (chief complaint) Persistent headaches 3 Jaysravan Gilliam. [address] [place], [address], [place]. tel:[phone] [facility], [address], [place], [place], [address], [place] tel:[phone] [facility] Hospital follow-up (chief complaint)Tel e Health (chief complaint) Recurrent headacheHospita l discharge follow-up 3 Rashaun Powell. [address] [place], [address], [place]. tel:[phone] OFFICE/OUTPA TIENT VISIT, EST [facility], [address], [address], [place] tel:[phone] [facility] UTI (chief complaint) Acute cystitis without hematuria 3 Jose Cassidy. [address] [place], [address], [place]. tel:[phone] [facility], [address], [place], [place], [address], [place] tel:[phone] [facility] Hospital discharge follow -up (chief complaint)Hea daches (chief complaint)Tel e Health (chief complaint) Other migraine without status migrainosus, not intractableHosp ital discharge follow-up 3 Rashaun Powell. [address] [place], [address], [place]. 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 [address], [place], [place], [address], [place]. tel:[phone] OFFICE/OUTPA TIENT VISIT, EST [facility], [address], [place], [place], [address], [place] tel:[phone] [facility] Lab results (chief complaint) Obesity (BMI 30-39.9)Renal cyst, leftPlantar fasciitis, left 3 Gil Moreira. [address] [place], [address], [place]. tel:[phone] [facility], [address], [place], [place], [address], [place] tel:[phone] [facility] results (chief complaint)tel ehealth (chief complaint) Encounter to discuss test results 3 Jeremiahokoro Elizabeth. [address], [place], [place], [address], [place]. tel:[phone] [facility], [address], [place], [place], [address], [place] tel:[phone] [facility] Functional dyspepsia 3 Gil Moreira. [address] [place], [address], [place]. tel:[phone] OFFICE/OUTPA TIENT VISIT, EST [facility], [address], [place], [place], [address], [place] tel:[phone] [facility] annual exam (chief complaint) Encounter for gynecological examination (general) (routine) without abnormal findingsContact with and (suspected) exposure to infections with a predominantly sexual mode of transmissionEnc ounter for screening breast examinationScre ening for cervical cancerScreening for HPV (human papillomavirus) Vaginal dischargeBreast pain in femaleBreast lump in female 3 Marvin Johnson. [address], [place], [place], [address], [place]. tel:[phone] OFFICE/OUTPA TIENT VISIT, [facility] [place] [facility], [address], [place], [place], [address], [place] tel:[phone] [facility] Dysuria x 1 week (chief complaint) Encntr for general adult medical exam w/o abnormal findingsRight arm numbnessDysuria Proteinuria, unspecified typeFunctional dyspepsia 3 Gil Moreira. [address] [place], [address], [place]. tel:[phone] OFFICE/OUTPA TIENT VISIT, [facility] [place] [facility], [address], [place], [place], [address], [place] tel:[phone] [facility] Vaginal itching (chief complaint) Vaginal candidiasis 3 Jose Cassidy. [address] [place], [address], [place]. tel:[phone] [facility], [address], [place], [place], [address], [place] tel:[phone] [facility] routine exam (chief complaint) Myopia, bilateralBilate ral astigmatism 3 Lilian Bennett. [address], [place], [address], [place]. tel:[phone] OFFICE/OUTPA TIENT VISIT, EST [facility], [address], [address], [place] tel:[phone] [facility] Vaginal issues (chief complaint)In Person visit (chief complaint) Bacterial vaginosisOther specified bacterial agents as the cause of diseases classified elsewhereVagina l candidiasis 3 Rashaun Powell. [address] [place], [address], [place]. tel:[phone] OFFICE/OUTPA TIENT VISIT, [facility] [place] [facility], [address], [address], [place] tel:[phone] [facility] F/U H. Pylori (chief complaint) H. pylori infection 3 Gil Moreira. [address] [place], [address], [place]. tel:[phone] OFFICE/OUTPA TIENT VISIT, [facility] [place] [facility], [address], [address], [place] tel:[phone] [facility] *breast pain/lump (chief complaint) Breast lump in femaleBreast pain in female 3 Marvin Johnson. [address], [place], [address], [place]. tel:[phone] OFFICE/OUTPA TIENT VISIT, [facility] [place] [facility], [address], [address], [place] tel:[phone] [facility] Lab results (chief complaint) H. pylori infectionVitami n D insufficiency 3 Gil Moreira. [address] [place], [address], [place]. tel:[phone] [facility], [address], [address], [place] tel:[phone] [facility] TeleMed (chief complaint)H. Pylori stool results (chief complaint) H. pylori infectionChroni c nauseaFunctiona l dyspepsiaGenera lized abdominal pain 3 Gil Moreira. [address] [place], [address], [place]. tel:[phone] OFFICE/OUTPA TIENT VISIT, [facility], [address] [place] [address] Ave [address], [place], [place], [address], [place] tel:[phone] [facility] Establish care (chief complaint) Obesity (BMI 30-39.9)Encount er to establish careLipid screeningChroni c nauseaFunctiona l dyspepsiaGenera lized abdominal painFamily history of colon cancerAnxiety about healthHistory of ovarian cystPelvic painChronic radicular pain of lower backOther chronic painDecreased vision in both eyes 3 Gil Moreira. [address] [place], [address], [place]. tel:[phone] Family History Family Member Type Diagnosis Age At Onset Mother Problem Alive and well Father Problem Alive and well Payers Payer name Insurance type Covered republican ID Authorrama skinner(s) [facility] [id number] [facility] Managed Wrap [id number] Social History Type Description Quantity Date Captured [...] She states occasional vaginal irritation. Pt denies PIPING DESIGNER complaints today, denies fever, chills.PMH: Ovarian cyst, Left kidney cystSx: section 2011OB: 2007, 2008 (2 living, 2010- premature @ 6 months)PIPING DESIGNER: PAP: NILM, HPV(-) 08/30/2023LMP: 04/07/2024ontraceptive: DeniesUA negative today.Pelvic ultrasound reviewed: moderate free fluid, may suggest cyst rupture; no evidence of fibroid. ER precautions discussed with pt.Follow-up 1 month. Reason For Referral Reason For Referral No Information Plan Of Treatment Date Type Action Status Goal PAP. Due on due Goal Pap/HPV [...] on due Goal Dental exam. Due on 023 due Goal Depression scree jesus. Due on due Goal Pap/HPV testing. Due on due Goal PAP. Due on due Goal Dental exam. Due on 023 due Goal Pap/HPV testing. Due on due Goal Depression scree jesus. Due on due Goal Alcohol/chemical dependency screeing. Due on due Goal Pap/HPV testing. Due on due Goal PAP. Due on due Goal Alcohol/chemical dependency screeing. Due on due Goal Dental exam. Due on 023 due Goal Depression scree jesus. Due on [...] Order Marcell rossi vaginitis, trichomonas vaginalis, yeast ([id number]), Appointment on: , Collected on: , Sent on: Sent Future Order: Radiology Order US Breast Bilateral ([id number]), Sent on: Sent Future Order: Radiology Order MA Digital Diagnostic Mammo Bilat W CAD ([id number]), Sent on: Sent History Of Present Illness Encounter Date Complaint History Of Prese nt Illness ultrasound result 34-year-old fe male presents to the clinic for ultrasound result regarding c/o white-yellowish vaginal discharge, vaginal itching, pelvic pain x 1 month. Patient reports symptoms have improved since last visit. She states occasional vaginal irritation. Pt denies PIPING DESIGNER complaints today, denies fever, chills.PMH: Ovarian cyst, Left kidney cystSx: section 2010OB: 2008, 2009 (2 living, 2010- premature @ 6 months)PIPING DESIGNER: PAP: NILM, HPV(-) 08/30/2023LMP: 04/07/2024ontraceptive: DeniesUA negative [...] results pending. She states LMP 04/07/2024, denies PIPING DESIGNER complaints at this time. Lab results reviewed [...] it could be pressure on her bladder. 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 results 34 yo female pre sents for 02/28/24 vaginal infection swab testing that is negative for all infections tested Filling *vaginal discharge 34 yo female presents as a walk in for vaginal discharge w/odor, irritation x 3 days Filling Ricardo Video Visit > Patient ranjana quinn consented to have their visit with [facility] via Telehealth for their concern.> Telehealth Platform used: Ricardo Video Call> Is this visit type clinically appropriate for this patient? Yes> Is the encounter in place of a efsj-jh-vsuv encounter? Yes> Total Length of Telehealth Visit: 15 minutes> The patient understands and consents to this telehealth (video) encounter> Date of verified by patient Discuss test results Tamara smith is a [...] 53. Urinalysis: moderate bacteria.No other health complaints. prophy Check-up/Cleaning f/u +Today, the clarke ent verbally consented to have their visit with [facility] via Telehealth for their concern.Telehealth Platform used: TelephoneIs this visit type clinically appropriate for this patient? Yes. Is this encounter in place of a maen-eh-ktcw encounter? Yes. Total Length of Telehealth Visit: [...] ly consented to have their visit with [facility] via Telehealth for their concern.> Telehealth Platform used: Phone Call> Is this visit type clinically appropriate for this patient? Yes> Is the encounter in place of a zunr-be-zapx encounter? Yes> Total Length of Telehealth Visit: 15 minutes> The patient understands and consents to this telehealth(audio) encounter> Date of verified by patient Unable to completely empty the bladder She is also complaining of incomplete emptying of the bladder. I am going to put in a consult for a urologist. Discuss test results The patient is a [...] Ab total and hepatitis B surface antibody. Lab results mri reordered +Today, the clarke ent verbally consented to have their visit with [facility] via Telehealth for their concern.Telehealth Platform used: TelephoneIs this visit type clinically appropriate for this patient? Yes. Is this encounter in place of a fwya-ad-sinf encounter? Yes. Total Length of Telehealth Visit: 20 minutes+MRI head for headaches, the original one got . +f/u in the clinic was advised for exam due to the limitation of the telehealth. screening for STD dysuria In Person visit/ Walk In Tamara Meade is a 33-year-old female via in-person visit today. She is a walk-in complaining of dysuria.The patient is complaining of intermittent burning during urination. She denies any other smell of urine. No urinary frequency.I did an in-house urine dipstick. It was negative for ketones, blood, protein, nitrites, and leukocytes.She is also requesting for STD screening. Telehealth +headaches /er f/u +Today, the p atient verbally consented to have their visit with [facility] via Telehealth for their concern.Telehealth Platform used: TelephoneIs this visit type clinically appropriate for this patient? Yes. Is this encounter in place of a qmjf-me-cmsr encounter? Yes. Total Length of Telehealth Visit: [...] for hospital discharge follow-up.She was seen at [facility] [place] on 10/19/2023 with symptoms of headache and [...] ly consented to have their visit with [facility] via Telehealth for their concern.> Telehealth Platform used: Phone Call> Is this visit type clinically appropriate for this patient? Yes> Is the encounter in place of a htgf-id-dzgf encounter? Yes> Total Length of Telehealth Visit: [...] negative, NIT - negative, IGOR - trace. Tele Health > Patient verbal ly consented to have their visit with [facility] via Telehealth for their concern.> Telehealth Platform used: Phone Call> Is this visit type clinically appropriate for this patient? Yes> Is the encounter in place of a zczd-tb-hsnn encounter? Yes> Total Length of Telehealth Visit: 15 minutes> The patient understands and consents to this telehealth(audio) encounter> Date of verified by patient Headaches Hospital discharge follow -up Ziggy Meade is a 33-year-old female in a telephone encounter today requesting for a test.She has been having a lot of headache for the past 2 weeks. She went to [facility] on 10/19/2023 and they worked her [...] use control at this time Lab results results 33 yo female pre sents for pap smear test results from 08/30/2023 that is NILM/HPV neg.recommend pelvic and breast exams/mammograms every 1 yearher breast imaging has not been scheduled as of this visit telehealth Today, the patie nt verbally consented to have their visit with [facility] via Telehealth for their concernReason for Telehealth Visit: State guidelines that residents should remain at home [Home-stay order and/or Quarantine]Telehealth Platform used: TelephoneIs this visit type clinically appropriate for this patient? YesIs this encounter in place of a kgdl-yo-qtvb encounter? YesTotal Length of Telehealth Visit: 15 minutes annual exam The patient stat es she [...] dugan consented to have their visit with [facility] via Telehealth for their concern.Reason for Telehealth [...] has two daughters. She moved here from [place] in November 2022. Reports her last pap [...] collected for further analysis. Advised to use rglz-sqt-mvucyfw moisturizers. A prescription for terconazole cream and [...] 1 week. Related to Female pelvic pain Let next provider ritchie ow if occlusal [...] e with operative fillings Related to Caries This note has been c reated using [employer] and was completed in the EHR by Jayasree. Kurtz Related to Encounter to discuss test results Advised patient to e at foods high in Vitamin D like fish, cod-liver oil, eggs, fortified cow's milk, bread and cereals and sun exposure. Related to Low vitamin D level patient dental education Related to Dental caries [...] a day.This note has been created using [employer] and was completed in the EHR by Susannah Berrios Related to Obesity (BMI 30.0-34.9) Urology referral made. Related t o Incomplete bladder emptying Labs dated 11/29/2023 discussed in detail. Questions/Concerns answered. This note has been created using [employer] and was completed in the EHR [...] placed today.This note has been created using [employer] and was completed in the EHR [...] caffeine intake.This note has been created using [employer] and was completed in the EHR by Deon Gray. Related to Recurrent headache Macrobid ordered. In structed on the use of medication and to finish the whole course. Advised to drink adequate amount of fluid and may drink Cranberry juice. Advised to wash after sexual intercourse. RTC as needed. Related to Acute cystitis without hematuria This note has been c reated using [employer] and was completed in the EHR [...] This note has been c reated using [employer] and was completed in the EHR [...] Mental Status Date Cognitive Assessment Orientation - Bigler ed to time, place, person, situation. Patient Care Teams Name Effective Dates (start - stop) Status Members No Information
--- OUTSIDE RECORDS SUMMARY | 2025-07-06 13:54 | XMS_ITS | Clinical Summary ---
Author Organization [facility] Virtual Care Address [facility] [place] [address] Phone Care Team Providers Care Mobile Home Technician Name Role Phone Teri Rodriguez DNP Primary Care Provi sandy Allergies Active Allergy Reactions Criticality Noted Date Comments Sulfa Swelling Medium 04/20/2018 Medications fluticasone propionate (FLONASE) 50 mcg/actuation nasal sprayIndication s:Postnasal drip,Nasal hypertrophy,Env ironmental and seasonal allergies Administer 2 sprays into each nostril daily 3 each 3 5 Active cetirizine (ZyrTEC) 10 mg tabletIndicatio ns:Postnasal drip,Nasal hypertrophy,Env ironmental and seasonal allergies Take 1 tablet (10 mg total) by mouth daily as needed for rhinitis or allergies 90 tablet 3 5 06/10/20 26 Active Active Problems Problem Noted Date Diagnosed Date Annual physical exam 06/10/2025 Assessment & Plan (06/10/2025 7:38 AM CDT): Labs ordered Recommend drinking at least 64 oz of water daily Recommend at least 26g fiber daily Recommend at least 150 min of exercise weekly as tolerated Recommend taking daily multivitamin Continue eating a healthy well-balanced diet. Limit processed foods like white starches, fast food, sweets and soda. Increase your vegetable intake and limit red meat. Wear your seatbelt at all times. No texting and driving. Continue to manage your stress in a healthy manner. Follow-up 1 year for annual physical. 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 Encounters Date Type Department Care Team Description 06/17/2025 3:13 PM CDT - 06/17/2025 11:59 PM CDT Hospital Encounter [facility] [place] [address] [place] [id number] Goiter Discharge Disposition: Discharge to home or self care 06/13/2025 Results Follow-Up [address] [address] Teri Rodriguez DNP Vitamin D 25 hydroxy, Urinalysis reflex to microscopic and culture Urine, clean voided, Thyroid Function [place], Additional followed-up results: 6 06/10/2025 12:10 PM CDT Lab [facility] [address] [place] [id number] Annual physical exam; Encounter for vitamin deficiency screening; Encounter for long-term (current) use of medications; Thyroid disorder screen; Lipid screening; Screening for diabetes mellitus 06/10/2025 11:30 AM CDT Office Visit [address] [phone] Teri Rodriguez DNP Annual physical exam (Primary Dx); Encounter to establish care; Depression screen; Goiter; Environmental and seasonal allergies; Nasal hypertrophy; Postnasal drip; Screening for diabetes mellitus; Lipid screening; Thyroid disorder screen; Encounter for vitamin deficiency screening; Encounter for long-term (current) use of medications from Last 3 Months Immunizations Immunization Administration Dates Next Due H1N1 Inj Preservative Free 12/29/2009 Influenza, Unspecified 08/21/2024(Deferred: Selam ent Refused) Tetanus Toxoid, Unspecified 06/21/2016 Surgical History Surgery Date Site/Laterality Comments SECTION 2010 Medical History Medical History Date Comments Hypertrophy of clitoris 01/01/2020 Oth ynes nflammatory disorders of vulva and perineum;Recorded Elsewhere: No Location: [facility] Source: EHR Chronic: N Practice ID: [id number] Billable Time: 03:00:00 PM Family History Medical History Relation Name Comments Colon cancer Maternal Grandfather Kidney cancer Maternal Grandmother Relation Name Status Comments Maternal Grandfather Maternal Grandmother Social History Tobacco Use Types Packs/Day Years Used Date Smoking Tobacco: Never Smokeless Tobacco: Never Tobacco Cessation:Counseling Given: Not Answered AUDIT-C Answer Date Recorded Q1: How often [...] on file Legal Sex 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 Gender Identity Not on file Sexual Orientation Not on file Obstetrics History Para Term AB IAB SAB Ectopic Multiple Livin g Live Births 3 2 2 Date Outcome GA Total Labor Labor/2nd/3rd Weight Sex Type Anes PTL Maya A1 A5 Name Clin Para Para Last Filed Vital Signs Vital Sign Reading Time Taken Comments Blood Pressure 110/66 06/10/2025 11:17 AM CDT Pulse 70 06/10/2025 11:17 AM CDT Temperature 36.6 C (97.9 F) 05/17/2022 9:50 PM CDT Respiratory Rate 18 06/10/2025 11:17 AM CDT Oxygen Saturation 99% 06/10/2025 11:17 AM CDT Inhaled Oxygen Concentration - - Weight 94.3 kg (208 lb) 06/10/2025 11:17 AM CDT Height 168.9 cm (5' 6.5) 06/10/2025 11:17 AM CD T Body Mass Index 33.07 06/10/2025 11:17 AM CDT Plan of Treatment Health Maintenance Due Date Last Done Comments Cervical Cancer Screening 1991 Hepatitis C Screening 1991 DTaP/Tdap/Td Vaccine (1 - Tdap) 2002 Varicella Vaccines (1 of 2 - 13+ 2-dose series) 02/11/2004 Hepatitis B Screening 2009 HPV Vaccines (1 - 3-dose SCD M series) 2018 Covid-19 Vaccine (3 - 2023-2 5 season) 2024 12/10/2021, 11/19/2021 Influenza Vaccine (#1) 2025 Depression Screening 06/10/2026 06/10/2025 Regular Well Visit/Exam 18-64 06/10/2026 06/10/2025 Pneumococcal vaccine <65 Aged Out No longer eligible based on patient's age to complete this topic Procedures Procedure Name Priority Date/Time Associated Diagnosis Comments US THYROID Schedule Routine, Read Routine (OP Routine) 06/17/2025 3:30 PM CDT Goiter EGFR Routine 06/10/2025 12:12 PM CDT Annual physical exam Screening for diabetes mellitus Encounter for long-term (current) use of medications DIFFERENTIAL AUTO Routine 06/10/2025 12: 12 PM CDT Annual physical exam Encounter for long-term (current) use of medications CBC WITH AUTO DIFFERENTIAL Routine 06/10/2025 12:12 PM CDT Annual physical exam Encounter for long-term (current) use of medications COMPREHENSIVE METABOLIC PANEL Routine 06/10/2025 12:12 PM CDT Annual physical exam Screening for diabetes mellitus Encounter for long-term (current) use of medications HEMOGLOBIN A1C Routine 06/10/2025 12:12 PM CDT Annual physical exam Screening for diabetes mellitus Encounter for long-term (current) use of medications LIPID PANEL Routine 06/10/2025 12:12 PM CDT Annual physical exam Lipid screening Encounter for long-term (current) use of medications THYROID FUNCTION CASCADE Routine 06/10/2025 12:12 PM CDT Annual physical exam Thyroid disorder screen Encounter for long-term (current) use of medications VITAMIN D 25 HYDROXY Routine 06/10/2025 12:12 PM CDT Annual physical exam Encounter for vitamin deficiency screening Encounter for long-term (current) use of medications URINALYSIS AND REFLEX TO MICROSCOPIC AND CULTURE Routine 06/10/2025 12:09 PM CDT Annual physical exam Encounter for long-term (current) use of medications from Last 3 Months Results * US Thyroid (06/17/2025 3:30 PM CDT) Anatomical Region Laterality Modality Head and Neck N/A Ultrasound 06/28/2025 9:01 PM CDT Narrative 06/28/2025 9:02 PM CDT EXAM DESCRIPTION: US THYROID REASON FOR STUDY: goiter TECHNIQUE: Ultrasound of the thyroid was performed with grayscale and color doppler. COMPARISON: None FINDINGS: RIGHT: The right thyroid lobe measures 5.7 x 1.8 x 1.8 cm. The right thyroid lobe is normal in echotexture. LEFT: The left thyroid lobe measures 4.9 x 1.7 x 1.2 cm. The left thyroid lobe is normal in echotexture. ISTHMUS: The isthmus measures 3.2 mm in AP dimension. The isthmus is normal in echotexture. VASCULARITY: Normal. OTHER: No other significant finding. IMPRESSION: Normal thyroid ultrasound. No thyroid nodules. THIS IS AN ELECTRONICALLY VERIFIED FINAL REPORT 06/28/2025 9:02 PM - Electronically signed by Hudson Mosley M.D. JR T: Report ID: [id number] Reading Location: [id number] Procedure Note Hudson Mosley MD - 06/28/2025 EXAM DESCRIPTION: US THYROID REASON FOR STUDY: goiter TECHNIQUE: Ultrasound of the thyroid was performed with grayscale andcolor doppler. COMPARISON: None FINDINGS: RIGHT: The right thyroid lobe measures 5.7 x 1.8 x 1.8 cm.The right thyroid lobe is normal in echotexture. LEFT: The left thyroid lobe measures 4.9 x 1.7 x 1.2 cm. The leftthyroid lobe is normal in echotexture. ISTHMUS: The isthmus measures 3.2 mm in AP dimension. The isthmus isnormal in echotexture. VASCULARITY: Normal. OTHER: No other significant finding. IMPRESSION: Normal thyroid ultrasound. No thyroid nodules. THIS IS AN ELECTRONICALLY VERIFIED FINAL REPORT 06/28/2025 9:02 PM - Electronically signed by Hudson Mosley M.D., JR T: Report ID: [id number] Reading Location: [place] [address] us Teri Rodriguez [facility] IMG US PROCEDURES F inal Result * eGFR (06/10/2025 12:12 PM CDT) eGFR >90 >=60 mL/min/1. 73 m2 Comment: Interpretive Data Reference Interval Normal >/= 90 mL/min/1.73m2 Mildly decreased* 60 - 89 mL/min/1.73m2 Mildly to moderately decreased 45 - 59 mL/min/1.73m2 Moderately to severely decreased 30 - 44 mL/min/1.73m2 Severely decreased 15 - 29 mL/min/1.73m2 Kidney Failure < 15 mL/min/1.73m2 *Relative to young adult level Estimated glomerular filtration rate is determined by the 2020 CKD-EPI equation recommended by the National Kidney Foundation (A Unifying Approach to GFR Estimation: Recommendations of the NKF-ASK Task Force on Reassessing the Inclusion of Race in Diagnosing Kidney Disease, JASN 2020). The CKD-EPI equation should not be used for patients with unstable renal function and has not been validated in children and those over 70. Current interpretive data was last reviewed 2021. Blood 06/10/2025 12:1 2 PM CDT 06/10/2025 12:32 PM CDT us Teri Rodriguez [facility] LAB BLOOD ORDERABLE S Final Result [facility] [address] [facility] Department [place] [address] * Differential, auto (06/10/2025 12:12 PM CDT) Pathologist [facility] Neutrophil abs 1.79 1.50 - 6.50 K/cumm Imm gran abs 0.01 0.00 - 0.10 K/cumm [facility] Lymphocyte abs 1.80 0.80 - 3.30 K/cumm [facility] Monocyte abs 0.50 0.20 - 0.80 K/cumm [facility] Eosinophil abs 0.07 0.00 - 0.50 K/cumm [facility] Basophil abs 0.02 0.00 - 0.10 K/cumm [facility] Neutrophil pct 42.7 % [facility] Comment: Interpretive Data Percent cell count reference ranges are not reported, since discordance with absolute values may lead to misinterpretation of CBC data. Current Interpretive Data was last revised on 2018. Imm gran pct 0.2 % [facility] Comment: Interpretive Data Percent cell count reference ranges are not reported, since discordance with absolute values may lead to misinterpretation of CBC data. Current Interpretive Data was last revised on 2018. Lymphocyte pct 43.0 % [facility] Comment: Interpretive Data Percent cell count reference ranges are not reported, since discordance with absolute values may lead to misinterpretation of CBC data. Current Interpretive Data was last revised on 2018. Monocyte pct 11.9 % [facility] Comment: Interpretive Data Percent cell count reference ranges are not reported, since discordance with absolute values may lead to misinterpretation of CBC data. Current Interpretive Data was last revised on 2018. Eosinophil pct 1.7 % [facility] Comment: Interpretive Data Percent cell count reference ranges are not reported, since discordance with absolute values may lead to misinterpretation of CBC data. Current Interpretive Data was last revised on 2018. Basophil pct 0.5 % [facility] Comment: Interpretive Data Percent cell count reference ranges are not reported, since discordance with absolute values may lead to misinterpretation of CBC data. Current Interpretive Data was last revised on 2018. Blood 06/10/2025 12:1 2 PM CDT 06/10/2025 12:32 PM CDT [facility] BLOOD ORDERABLE S Final Result Performing Organization Address [facility] Co de Phone Number [address] [place] [address] * Thyroid Function [place] (06/10/2025 12:12 PM CDT) [facility] TSH 2.53 0.30 - 4.20 mcIUnit/mL Blood 06/10/2025 12:1 2 PM CDT 06/10/2025 12:32 PM CDT [facility] LAB BLOOD ORDERABLE S Final Result Performing Organization Address [facility] de Phone Number [address] [address] * (ABNORMAL) CBC with auto differential (06/10/2025 12:12 PM CDT) [facility] WBC 4.19 3.80 - 9.90 K/cumm Hgb 11.4(L) 11.9 - 15.5 g/dL [facility] Hct 35.9 35.6 - 45.5 % [facility] Plt 286 150 - 400 K/cumm [facility] MPV 11.7 9.1 - 12.3 fL [facility] RBC 4.26 3.90 - 5.20 M/cumm [facility] MCV 84.3 81.3 - 96.4 fL [facility] MCH 26.8(L) 27.1 - 33.3 pg [facility] MCHC 31.8(L) 32.3 - 35.7 g/dL [facility] RDW CV 14.3 11.1 - 14.9 % [facility] RDW SD 43.9 35.7 - 48.1 fL [facility] NRBC abs 0.00 0.00 - 0.01 K/cumm [facility] Blood 06/10/2025 12:1 2 PM CDT 06/10/2025 12:32 PM CDT Teri Rendonette [facility] LAB BLOOD ORDERABLE S Final Result Performing Organization Address [facility] de Phone Number [address] [place] [address] * (ABNORMAL) Vitamin D 25 hydroxy (06/10/2025 12:12 PM CDT) [facility] Vitamin D 25-OH 26.0(L) 30.0 - 80.0 ng/mL Blood 06/10/2025 12:1 2 PM CDT 06/10/2025 12:32 PM CDT [facility] LAB BLOOD ORDERABLE S Final Result Performing Organization Address [facility] de Phone Number [address] [address] * Hemoglobin A1c (06/10/2025 12:12 PM CDT) [facility] Hgb A1C 5.3 4.0 - 5.6 % Estimated Average Glucose 105 mg/dL [facility] Comment: The ADA recommends reporting an estimated Average Glucose (eAG) with all Hemoglobin A1c results using the equation derived from a study of 507 normal and diabetic adults. Minority populations were underrepresented and children were not included. (Diabetes Care 31:7190-6236, 2008). The eAG is not equivalent to a fasting glucose. Blood 06/10/2025 12:1 2 PM CDT 06/10/2025 12:32 PM CDT [facility] LAB BLOOD ORDERABLE S Final Result Performing Organization Address [facility] de Phone Number [address] Department [place] [address] * Lipid panel (06/10/2025 12:12 PM CDT) Cholesterol 163 30 - 199 mg/dL Comment: Interpretive Data Ages < or = 19 years Acceptable: <170 mg/dL Borderline high: 170-199 mg/dL High: >or= 200 mg/dL Ages > or = 20 years Desirable: <200 mg/dL Borderline high: 200-239 mg/dL High: >or= 240 mg/dL Literature References: 1. Expert Panel on Integrated Guidelines for Cardiovascular Health and Risk Reduction in Children and Adolescents. Pediatrics 2011;128:S213 2. NCEP Expert Panel. Circulation 2004;110:227 Current Interpretive Data was last revised on 2018. Triglycerides 55 <=149 mg/dL [facility] Comment: Interpretive Data Ages < or = 9 years Acceptable: <75 mg/dL Borderline high: 75-99 mg/dL High: >or= 100 mg/dL Ages 10 to 20 years Acceptable: <90 mg/dL Borderline high: 90-129 mg/dL High: >or= 130 mg/dL Ages > or = 20 years Desirable: <150 mg/dL Borderline high: 150-199 mg/dL High: 200-499 mg/dL Very high: >or= 499 mg/dL Literature References: 1. Expert Panel on Integrated Guidelines for Cardiovascular Health and Risk Reduction in Children and Adolescents. Pediatrics 2011;128:S213 2. NCEP Expert Panel. Circulation 2004;110:227 Current Interpretive Data was last revised on 2018. HDL 63 >=40 mg/dL [facility] Comment: Interpretive Data Ages < or = 19 years Acceptable: >45 mg/dL Borderline low: 40-45 mg/dL Low: <40 mg/dL Ages > or = 20 years Desirable: >or= 60 mg/dL Low: <40 mg/dL Literature References: 1. Expert Panel on Integrated Guidelines for Cardiovascular Health and Risk Reduction in Children and Adolescents. Pediatrics 2011;128:S213 2. NCEP Expert Panel. Circulation 2004;110:227 Current Interpretive Data was last revised on 2018. LDL, calculated 89 <=129 mg/dL [facility] Comment: Interpretive Data Ages < or = 19 years Acceptable: <110 mg/dL Borderline high: 110-129 mg/dL High: >or= 130 mg/dL Ages > or = 20 years Optimal: <100 mg/dL Near optimal: 100-129 mg/dL Borderline high: 130-159 mg/dL High: >160 mg/dL Calculated using the Diogenes LDL-C estimating equation. This equation was implemented on 2024. Prior to this date LDL-C was estimated using the Friedewald equation. Literature References: 1. Expert Panel on Integrated Guidelines for Cardiovascular Health and Risk Reduction in Children and Adolescents. Pediatrics 2011;128:S213 2. NCEP Expert Panel. Circulation 2004;110:227 3. Diogenes Kurtz et al. TREMAINE Cardiol. 2020 March 21;5(5):540-548. doi: 10.1001/jamacardio.2020.0013 Current Interpretive Data was last revised on 2024. Non-HDL Cholesterol 100 mg/dL [facility] Comment: Interpretive Data Ages < or = 19 years Acceptable: <120 mg/dL Borderline high: 120-144 mg/dL High: >145 mg/dL Ages > or = 20 years When triglycerides are >200 mg/dL, Non-HDL cholesterol is a secondary target of therapy with treatment goals that are 30 mg/dL greater than the LDL cholesterol target. Literature References: 1. Expert Panel on Integrated Guidelines for Cardiovascular Health and Risk Reduction in Children and Adolescents. Pediatrics 2011;128:S213 2. NCEP Expert Panel. Circulation 2004;110:227 Current Interpretive Data was last revised on 2018. Chol/HDL ratio 3 [facility] Blood 06/10/2025 12:1 2 PM CDT 06/10/2025 12:32 PM CDT us Teri Rodriguez [facility] LAB BLOOD ORDERABLE S Final Result [facility] [address] [facility] Department [place] [address] * Comprehensive metabolic panel (06/10/2025 12:12 PM CDT) Sodium 140 135 - 145 mmol/L Potassium, pl 4.0 3.3 - 4.9 mmol/L [facility] Chloride 104 97 - 110 mmol/L [facility] CO2 26 22 - 32 mmol/L [facility] Anion gap 10 2 - 15 mmol/L [facility] BUN 9 6 - 25 mg/dL [facility] Creatinine 0.63 0.60 - 1.10 mg/dL [facility] Glucose 89 70 - 199 mg/dL [facility] Comment: Interpretive Data Fasting glucose >/= 126 mg/dl is diagnostic for diabetes. Fasting is defined as no caloric intake for at least 8 hours. Fasting glucose between 100 mg/dl to 125 mg/dl is diagnostic of prediabetes. In a patient with classic symptoms of hyperglycemia or hyperglycemic crisis, a random glucose >/= 200 mg/dl is diagnostic for diabetes. In the absence of unequivocal hyperglycemia, results should be confirmed by repeat testing. The classification and Diagnosis of Diabetes Diabetes Care 202; 46: S19-S40. Current interpretive data was last revised 2022. Calcium 8.8 8.5 - 10.3 mg/dL [facility] Bilirubin, total 0.9 0.1 - 1.2 mg/dL [facility] Protein, pl 7.4 6.5 - 8.5 g/dL [facility] Albumin 4.2 3.5 - 5.0 g/dL [facility] Alk phos 66 40 - 130 Units/L [facility] ALT 12 7 - 45 Units/L [facility] AST 23 10 - 45 Units/L [facility] Blood 06/10/2025 12:1 2 PM CDT 06/10/2025 12:32 PM CDT Teri Rodriguez [facility] LAB BLOOD ORDERABLE S Final Result [facility] [address] [facility] Department [place] [address] * Urinalysis reflex to microscopic and culture Urine, clean voided (06/10/2025 12:09 PM CDT) Color, ur Yellow Yellow Clarity, ur Clear Clear [facility] Specific gravity, ur 1.024 1.003 - 1.030 [facility] pH, urine 7.5 [facility] Comment: Interpretive Data U rine pH is affected by diet, medications, systemic acid-base disturbances, and renal tubular function. pH may affect urinary stone formation. For example, urine pH below 6.0 may help reduce the tendency for calcium phosphate stones and pH greater than 6.0 may reduce the tendency for uric acid stone formation. Source: [facility] Current Interpretive Data was last revised on 2017 Protein, ur ql Negative Negative [facility] Glucose, ur ql Negative Negative [facility] Ketones, ur Negative Negative [facility] Bilirubin, ur Negative Negative [facility] Blood, ur Negative Negative [facility] Urobilinogen, ur <2.0 <2.0 mg/dL [facility] Nitrite, ur Negative Negative [facility] Leukocyte esterase, ur Negative Negative [facility] UA reflex comment Reflex conditions for microscopic UA and culture not met. [facility] Urine, clean voided 06/10/2025 12:09 PM CDT 06/10/2025 12:31 PM CDT Narrative [facility] - 06/10/2025 12:58 PM CDT Urine Collection Method->Clean Catch us Teri Rodriguez [facility] LAB MICROBIOLOGY - GENERAL ORDERABLES Final Result [facility] [address] [facility] Department [place] [address] from Last 3 Months Insurance [facility] Care Teams Mobile Home Technician Relationship Specialty Start Date End Date Teri Rodriguez DNP [address] [place] [address] [place] [phone] PCP - General Family Medicine 06/10/25
[2025-07-06 14:05] VITALS: BP 123/73; PULSE 89; RESP 20; TEMP 36.3; O2SAT 99
--- NOTE | 2025-07-06 14:12 | ED_ITS ---
HPI - Extremity Injury (Lower) General Chief Complaint: Extremity Injury, Lower Stated Complaint: foot pain x 1 week Time Seen by Provider: 07/06/25 14:05 Source: patient Mode of arrival: ambulatory Limitations: no limitations History of Present Illness HPI Narrative: Left big toe pain started 5-7 days ago, no trauma Patient is healthy otherwise Related Data Allergies Allergy/AdvReac Type Severity Reaction Status Date / Time Sulfa (Sulfonamide Allergy Severe SWELLING Verified 07/06/25 13:52 Antibiotics) Review of Systems Review of Systems: All systems reviewed & are unremarkable except as noted in HPI and below PMFSH Past Medical History Medical History Patient denies significant medical history Surgical History Surgical History Hx of section Social History Social History Smoking status: Never smoker Exam Narrative: General appearance: Well-developed, well-nourished Skin: Normal color Head: Normocephalic, nontraumatic Eyes: Clear conjunctiva ENT: Oropharynx normal, ears normal, nose normal Neck: Supple, nontender Chest and respiratory: Airway patent, no respiratory distress, no accessory muscle use Heart: Regular rate/rhythm Vascular: Normal peripheral pulses, normal capillary refill. Musculoskeletal: Left big toe showed diffuse swelling and redness of the metatarsophalangeal joint Neurologic: Alert and oriented ?3, [employer] is normal as tested, no gross motor deficit Course Vital Signs Vital signs: Vital Signs Temperature 36.3 C L 07/06/25 14:05 Pulse Rate 89 07/06/25 14:05 Respiratory Rate 20 07/06/25 14:05 Blood Pressure 123/73 07/06/25 14:05 Pulse Oximetry 99 07/06/25 14:05 Oxygen Delivery Room Air 07/06/25 14:05 Temperature 36.3 C L 07/06/25 14:05 Pulse Rate 89 07/06/25 14:05 Respiratory Rate 20 07/06/25 14:05 Blood Pressure 123/73 07/06/25 14:05 Pulse Oximetry 99 07/06/25 14:05 Oxygen Delivery Room Air 07/06/25 14:05 MDM - Extremity Injury (Lower) MDM Narrative Medical decision making narrative: Differential diagnosis includes sprain/strain/gouty arthritis X-ray of the left foot showed no acute osseous abnormality Differential Diagnosis Differential diagnosis: Likely other (As above) Imaging Data Radiologist's impression: X-ray of the left foot showed no acute osseous abnormality Critical Care Time Critical Care Time Critical Care Time: No Discharge Plan Discharge Clinical Impression: Acute gouty arthritis, Podagra Patient Disposition: Home Condition: Stable Instructions: Gout (ED) Additional Instructions: Return if symptoms are worsening , call your family physician for appointment, take Tylenol as as needed for aches and pain, continue home medications. Keep left foot elevated, avoid putting weight on it Patient Language: Bangladeshi Prescriptions: New indomethacin 75 mg capsule, extended release 75 mg PO BID Qty: 10 0RF No Action mupirocin 2 % ointment 1 applic TOPICAL TID Qty: 22 0RF lidocaine 5 % adhesive patch,medicated 1 patch topical DAILY Qty: 15 0RF Rx Instructions: leave on most painful area for up to 12 hrs cyclobenzaprine 5 mg tablet 5 mg PO TID PRN (Reason: muscle spasm) Qty: 15 0RF Follow-up/Referrals: UNKNOWN,DOCTOR [Primary Care Provider] -
--- OUTSIDE RECORDS SUMMARY | 2025-07-06 14:21 | XMS_ITS | Clinical Summary ---
Author Organization [facility] Address [address] [place] [address] Phone Care Team Providers Care Milker Machine Name Role Phone Miriam Marcelino Primary Care Provider [phone] Allergies Active Allergy Reactions Criticality Noted Date [...] Insurance MEDICAID [employer] Care Teams Milker Machine Relationship Specialty Start Date End Date Miriam Marcelino PA [address] [id number] PCP - General Adult Medicine 02/10/17
--- OUTSIDE RECORDS SUMMARY | 2025-07-06 14:21 | XMS_ITS | Continuity of Care Document ---
Author Organization [facility] Address [address] [place] [address] Phone Care Team Providers Care Painter Tumbling Barrel Name Role Phone Harrison BOWMAN, Julieta Unavailable [...] 5.0-9.0 Final Protein Negative Negative Final Specirfic [place] 1.030 1.001-1.035 Final Urobilinogen 0.2 E.U./dL 0.2-1.0E.U./ d L Final Advance Directives Directive Yes / No Effective Date File Name No Information Encounters Encounter Description Practice Location Reason(s) For Visit Diagnoses Date Provider Providers Copied on Encounter OFFICE/OUTPA TIENT VISIT, EST [facility], [facility], [place], [place], [address], [place] tel:[phone] [facility] ultrasound result (chief complaint) Encounter to discuss test results [facility], [place], [address], [place]. tel:[phone] OFFICE/OUTPA TIENT VISIT, EST [facility], [address], [place], [place], [address], [place] tel:[phone] [facility] 2 results (chief complaint) Encounter to discuss test results 4 Harrison Pardo [address], [place], [address], [place]. tel:[phone] [facility], [address], [place], [place], [address], [place] tel:[phone] [facility] (chief complaint) Caries 4 William Barnhart. [address], [place], [address], [place]. tel:[phone] OFFICE/OUTPA TIENT VISIT, EST [facility], [address], [place], [place], [address], [place] tel:[phone] [facility] Vaginal discharge x3 weeks (chief complaint) Problematic vaginal dischargeSensat ion of pressure in bladder area 4 Mikal Ledesma. [address] [place], [address], [place]. tel:[phone] [facility], [address], [place], [place], [address], [place] tel:[phone] [facility] Telemedicine (chief complaint)Monica k pain (chief complaint) Chronic midline low back pain with right-sided sciaticaOther chronic pain 4 Jose Cassidy. [address] [place], [address], [place]. tel:[phone] [facility], [address], [place], [place], [address], [place] tel:[phone] [facility] (chief complaint) Caries 4 William Barnhart. [address], [place], [address], [place]. tel:[phone] OFFICE/OUTPA TIENT VISIT, EST [facility], [address], [place], [place], [address], [place] tel:[phone] [facility] 2 vaginal concerns (chief complaint) Vaginal dischargeFemale pelvic pain March-0 4 Harrison Pardo [address], [place], [address], [place]. tel:[phone] OFFICE/OUTPA TIENT VISIT, EST [facility], [address], [place], [place], [address], [place] tel:[phone] [facility] results (chief complaint) Encounter to discuss test results Feb- 4 Marvin Johnson. [address], [place], [place], [address], [place]. tel:[phone] [facility], [address], [address], [place] tel:[phone] [facility] (chief complaint) Caries Feb- 4 William Barnhart. [address], [place], [address], [place]. 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 [address], [place], [place], [address], [place]. tel:[phone] [facility], [address], [place], [place], [address], [place] tel:[phone] [facility] (chief complaint) Caries Feb- 4 William Majanoa. [address], [place], [address], [place]. tel:[phone] [facility], [address], [place], [place], [address], [place] tel:[phone] [facility] Discuss test results (chief complaint)Hari o Video Visit (chief complaint) Low vitamin D levelEncounter to discuss test results 4 Rashaun Powell. [address] [place], [address], [place]. tel:[phone] [facility], [address], [place], [place], [address], [place] tel:[phone] [facility] prophy (chief complaint) Dental caries 4 [facility]. [address], [place], [address], [place]. tel:[phone] [facility], [address], [place], [place], [address], [place] tel:[phone] [facility] Check-up/Marija lee (chief complaint) Dental caries 4 Fletcher Eladia. [address], [place], [address], [place]. tel:[phone] [facility], [address], [place], [place], [address], [place] tel:[phone] [facility] f/u (chief complaint) Other fatigueObesity (BMI 30.0-34.9)Renal cyst, leftBilateral thigh painPain in left thigh 4 Jay Gilliam. [address] [place], [address], [place]. tel:[phone] OFFICE/OUTPA TIENT VISIT, EST [facility], [address], [place], [place], [address], [place] tel:[phone] [facility] incomplete bladder emptying and recurrent UTI (chief complaint) Incomplete bladder emptyingRecurre nt UTIObesity (BMI 30.0-34.9) 4 Jose Khanh. [address] [place], [address], [place]. tel:[phone] [facility], [address], [place], [place], [address], [place] tel:[phone] [facility] Discuss test results (chief complaint)Bee ble to completely empty the bladder (chief complaint)Tel e Health (chief complaint) Incomplete bladder emptyingEncount er to discuss test results 4 Rashaun Powell. [address] [place], [address], [place]. tel:[phone] OFFICE/OUTPA TIENT VISIT, EST [facility], [address], [address], [place] tel:[phone] [facility] Lab results (chief complaint) Persistent headachesEncoun ter to discuss test results 4 Gil Moreira. [address] [place], [address], [place]. tel:[phone] [facility], [address], [place], [place], [address], [place] tel:[phone] [facility] mri reordered (chief complaint) Persistent headaches 4 Jay Gilliam. [address] [place], [address], [place]. tel:[phone] OFFICE/OUTPA TIENT VISIT, EST [facility], [address], [place], [place], [address], [place] tel:[phone] [facility] dysuria (chief complaint)scr eening for STD (chief complaint)In Person visit/ Walk In (chief complaint) DysuriaScreenin g for STD (sexually transmitted disease) 4 Rashaun Powell. [address] [place], [address], [place]. tel:[phone] [facility], [address], [place], [place], [address], [place] tel:[phone] [facility] Telehealth (chief complaint) No Information 0 4 Saskia Quezada. [address] [place], [address], [place]. tel:[phone] [facility], [address], [place], [place], [address], [place] tel:[phone] [facility] +headaches /er f/u (chief complaint) Persistent headaches 3 Jaysravan Gilliam. [address] [place], [address], [place]. tel:[phone] [facility], [address], [place], [place], [address], [place] tel:[phone] [facility] Hospital follow-up (chief complaint)Tel e Health (chief complaint) Recurrent headacheHospita l discharge follow-up 3 Rashaun Powell. [address] [place], [address], [place]. tel:[phone] OFFICE/OUTPA TIENT VISIT, EST [facility], [address], [address], [place] tel:[phone] [facility] UTI (chief complaint) Acute cystitis without hematuria 3 Jose Cassidy. [address] [place], [address], [place]. tel:[phone] [facility], [address], [place], [place], [address], [place] tel:[phone] [facility] Hospital discharge follow -up (chief complaint)Hea daches (chief complaint)Tel e Health (chief complaint) Other migraine without status migrainosus, not intractableHosp ital discharge follow-up 3 Rashaun Powell. [address] [place], [address], [place]. 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 [address], [place], [place], [address], [place]. tel:[phone] OFFICE/OUTPA TIENT VISIT, EST [facility], [address], [place], [place], [address], [place] tel:[phone] [facility] Lab results (chief complaint) Obesity (BMI 30-39.9)Renal cyst, leftPlantar fasciitis, left 3 Gil Moreira. [address] [place], [address], [place]. tel:[phone] [facility], [address], [place], [place], [address], [place] tel:[phone] [facility] results (chief complaint)tel ehealth (chief complaint) Encounter to discuss test results 3 Jeremiahokoro Elizabeth. [address], [place], [place], [address], [place]. tel:[phone] [facility], [address], [place], [address], [place] tel:[phone] [facility] Functional dyspepsia 3 Gil Moreira. [address] [place], [address], [place]. tel:[phone] OFFICE/OUTPA TIENT VISIT, EST [facility], [address], [place], [place], [address], [place] tel:[phone] [facility] annual exam (chief complaint) Encounter for gynecological examination (general) (routine) without abnormal findingsContact with and (suspected) exposure to infections with a predominantly sexual mode of transmissionEnc ounter for screening breast examinationScre ening for cervical cancerScreening for HPV (human papillomavirus) Vaginal dischargeBreast pain in femaleBreast lump in female 3 Marvin Johnson. [address], [place], [place], [address], [place]. tel:[phone] OFFICE/OUTPA TIENT VISIT, [facility], [address], [place], [place], [address], [place] tel:[phone] [facility] Dysuria x 1 week (chief complaint) Encntr for general adult medical exam w/o abnormal findingsRight arm numbnessDysuria Proteinuria, unspecified typeFunctional dyspepsia 3 Gil Moreira. [address] [place], [address], [place]. tel:[phone] OFFICE/OUTPA TIENT VISIT, [facility], [address], [place], [place], [address], [place] tel:[phone] [facility] Vaginal itching (chief complaint) Vaginal candidiasis 3 Jose Cassidy. [address] [place], [address], [place]. tel:[phone] [facility], [address], [place], [place], [address], [place] tel:[phone] [facility] routine exam (chief complaint) Myopia, bilateralBilate ral astigmatism 3 Lilian Bennett. [address], [place], [address], [place]. tel:[phone] OFFICE/OUTPA TIENT VISIT, EST [facility], [address], [address], [place] tel:[phone] [facility] Vaginal issues (chief complaint)In Person visit (chief complaint) Bacterial vaginosisOther specified bacterial agents as the cause of diseases classified elsewhereVagina l candidiasis 3 Rashaun Powell. [address] [place], [address], [place]. tel:[phone] OFFICE/OUTPA TIENT VISIT, [facility], [address], [address], [place] tel:[phone] [facility] F/U H. Pylori (chief complaint) H. pylori infection 3 Gil Moreira. [address] [place], [address], [place]. tel:[phone] OFFICE/OUTPA TIENT VISIT, [facility], [address], [address], [place] tel:[phone] [facility] *breast pain/lump (chief complaint) Breast lump in femaleBreast pain in female 3 Marvin Johnson. [address], [place], [address], [place]. tel:[phone] OFFICE/OUTPA TIENT VISIT, [facility], [address], [address], [place] tel:[phone] [facility] Lab results (chief complaint) H. pylori infectionVitami n D insufficiency 3 Gil Moreira. [address] [place], [address], [place]. tel:[phone] [facility], [address], [address], [place] tel:[phone] [facility] TeleMed (chief complaint)H. Pylori stool results (chief complaint) H. pylori infectionChroni c nauseaFunctiona l dyspepsiaGenera lized abdominal pain 3 Gil Moreira. [address] [place], [address], [place]. tel:[phone] OFFICE/OUTPA TIENT VISIT, [facility], [address] [place] [address] Ave [address], [place], [place], [address], [place] tel:[phone] [facility] Establish care (chief complaint) Obesity (BMI 30-39.9)Encount er to establish careLipid screeningChroni c nauseaFunctiona l dyspepsiaGenera lized abdominal painFamily history of colon cancerAnxiety about healthHistory of ovarian cystPelvic painChronic radicular pain of lower backOther chronic painDecreased vision in both eyes 3 Gil Moreira. [address] [place], [address], [place]. tel:[phone] Family History Family Member Type Diagnosis Age At Onset Mother Problem Alive and well Father Problem Alive and well Payers Payer name Insurance type Covered green party ID Authorrama skinner(s) [facility] [id number] [facility] Managed Wrap [id number] Social History Type Description Quantity Date Captured [...] She states occasional vaginal irritation. Pt denies GAS WELDER complaints today, denies fever, chills.PMH: Ovarian cyst, Left kidney cystSx: section 2011OB: 2007, 2008 (2 living, 2010- premature @ 6 months)GAS WELDER: PAP: NILM, HPV(-) 08/30/2023LMP: 04/07/2024ontraceptive: DeniesUA negative today.Pelvic ultrasound reviewed: moderate free fluid, may suggest cyst rupture; no evidence of fibroid. ER precautions discussed with pt.Follow-up 1 month. Reason For Referral Reason For Referral No Information Plan Of Treatment Date Type Action Status Goal PAP. Due on due Goal Depression [...] Dental exam. Due on 023 due Goal PAP. Due on due Goal Depression scree jesus. Due on due Goal Depression scree jesus. Due on due Goal Alcohol/chemical dependency screeing. Due on due Goal Pap/HPV testing. Due on due Goal Dental exam. Due on 023 due Goal PAP. Due on due Goal [...] Order Marcell rossi vaginitis, trichomonas vaginalis, yeast ([id number]), Appointment on: , Collected on: , Sent on: Sent Future Order: Radiology Order US Breast Bilateral ([id number]), Sent on: Sent Future Order: Radiology Order MA Digital Diagnostic Mammo Bilat W CAD ([id number]), Sent on: Sent History Of Present Illness Encounter Date Complaint History Of Prese nt Illness ultrasound result 34-year-old fe male presents to the clinic for ultrasound result regarding c/o white-yellowish vaginal discharge, vaginal itching, pelvic pain x 1 month. Patient reports symptoms have improved since last visit. She states occasional vaginal irritation. Pt denies GAS WELDER complaints today, denies fever, chills.PMH: Ovarian cyst, Left kidney cystSx: section 2010OB: 2007, 2009 (2 living, 2010- premature @ 6 months)GAS WELDER: PAP: NILM, HPV(-) 08/30/2023LMP: 04/07/2024ontraceptive: DeniesUA negative [...] results pending. She states LMP 04/07/2024, denies GAS WELDER complaints at this time. Lab results reviewed [...] it could be pressure on her bladder. 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 Yes> Is the encounter in place of a nytj-ci-znuo encounter? Yes> Total Length of Telehealth Visit: [...] verbally consented to have their visit with [facility] via Telehealth for their concern.Telehealth Platform used: TelephoneIs this visit type clinically appropriate for this patient? Yes. Is this encounter in place of a qkbc-lj-dsid encounter? Yes. Total Length of Telehealth Visit: [...] ly consented to have their visit with [email or web address] via Telehealth for their concern.> Telehealth Platform used: Phone Call> Is this visit type clinically appropriate for this patient? Yes> Is the encounter in place of a xukf-kx-rkpa encounter? Yes> Total Length of Telehealth Visit: [...] verbally consented to have their visit with [facility] via Telehealth for their concern.Telehealth Platform used: TelephoneIs this visit type clinically appropriate for this patient? Yes. Is this encounter in place of a mcrx-qv-eira encounter? Yes. Total Length of Telehealth Visit: [...] verbally consented to have their visit with [facility] via Telehealth for their concern.Telehealth Platform used: TelephoneIs this visit type clinically appropriate for this patient? Yes. Is this encounter in place of a hdar-xt-zoaq encounter? Yes. Total Length of Telehealth Visit: [...] for hospital discharge follow-up.She was seen at [facility] on 10/19/2023 with symptoms of headache and [...] ly consented to have their visit with [email or web address] via Telehealth for their concern.> Telehealth Platform used: Phone Call> Is this visit type clinically appropriate for this patient? Yes> Is the encounter in place of a hvhr-bb-frsf encounter? Yes> Total Length of Telehealth Visit: [...] ly consented to have their visit with [email or web address] via Telehealth for their concern.> Telehealth Platform used: Phone Call> Is this visit type clinically appropriate for this patient? Yes> Is the encounter in place of a abch-ti-pbkl encounter? Yes> Total Length of Telehealth Visit: 15 minutes> The patient understands and consents to this telehealth(audio) encounter> Date of verified by patient Headaches Hospital discharge follow -up Ziggy Meade is a 33-year-old female in a telephone encounter today requesting for a test.She has been having a lot of headache for the past 2 weeks. She went to [facility] on 10/19/2023 and they worked her [...] verbally consented to have their visit with [facility] via Telehealth for their concernReason for Telehealth Visit: State guidelines that residents should remain at home [Home-stay order and/or Quarantine]Telehealth Platform used: TelephoneIs this visit type clinically appropriate for this patient? YesIs this encounter in place of a vvwt-ap-ghaq encounter? YesTotal Length of Telehealth Visit: 15 [...] dugan consented to have their visit with [facility] via Telehealth for their concern.Reason for Telehealth [...] has two daughters. She moved here from [place] in November 2022. Reports her last pap [...] high during next appt Related to Caries A urine sample will be collected for culture and sensitivity. Related to Sensation of pressure in bladder area A vaginal swab will be collected for further analysis. Advised to use ozky-ree-dbdbdix moisturizers. A prescription for terconazole cream and [...] This note has been c reated using [employer] and was completed in the EHR by M Related to Encounter to discuss test results nutrition counseling Related to Dental caries oral hygiene instruction Related to Dental caries patient dental education Related to Dental caries nutrition counseling Related to Dental caries oral hygiene instruction Related to Dental caries patient dental education Related to Dental caries +take meds as [...] a day.This note has been created using [employer] and was completed in the EHR by Susannah Berrios Related to Obesity (BMI 30.0-34.9) Urology referral made. Related t o Incomplete bladder emptying Labs dated 11/29/2023 discussed in detail. Questions/Concerns answered. This note has been created using [employer] and was completed in the EHR by Jose Related to Encounter to discuss test results All STD testing negative Related to Encounter to discuss test results Pt to schedule CT head Related t o Persistent headaches +take meds as direct ed+f/u in the clinic for exam+if worsen go to ER Related to Persistent headaches Labs for STD screeni ng placed today.This note has been created using [employer] and was completed in the EHR [...] caffeine intake.This note has been created using [employer] and was completed in the EHR by Deon Gray. Related to Recurrent headache Macrobid ordered. In structed on the use of medication and to finish the whole course. Advised to drink adequate amount of fluid and may drink Cranberry juice. Advised to wash after sexual intercourse. RTC as needed. Related to Acute cystitis without hematuria This note has been c reated using [employer] and was completed in the EHR by Griselda Vela Related to Hospital discharge follow-up prescription sent to pharmacyfollow up as needed and for annual exam Related to Vaginal itching take meds as directe d. stretching exercises. Related to Plantar fasciitis, left Increase physical activity. Rela jojo to Obesity (BMI 30-39.9) Decrease processed food intake. Related to Obesity (BMI 30-39.9) Continue to monitor. F/U if any new pain or symptoms Related to Renal cyst, left follow up as needed and for [...] This note has been c reated using [employer] and was completed in the EHR [...] Mental Status Date Cognitive Assessment Orientation - Massey ed to time, place, person, situation. Patient Care Teams Name Effective Dates (start - stop) Status Members No Information
--- OUTSIDE RECORDS SUMMARY | 2025-07-06 14:21 | XMS_ITS | Clinical Summary ---
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 Encounters Date Type Department Care Team Description 06/17/2025 3:13 PM CDT - 06/17/2025 11:59 PM CDT Hospital Encounter [facility] US [address] [place] [id number] Goiter Discharge Disposition: Discharge to home or self care 06/13/2025 Results Follow-Up [address] [address] Trei Rodriguez DNP Vitamin D 25 hydroxy, Urinalysis reflex to microscopic and culture Urine, clean voided, Thyroid Function [place], Additional followed-up results: 6 06/10/2025 12:10 PM CDT Lab [facility] [address] [place] [address] Annual physical exam; Encounter for vitamin deficiency screening; Encounter for long-term (current) use of medications; Thyroid disorder screen; Lipid screening; Screening for diabetes mellitus 06/10/2025 11:30 AM CDT Office Visit [address] [address] Teri Rodriguez DNP Annual physical exam (Primary [...] of vulva and perineum;Recorded Elsewhere: No Location: [facility] Source: EHR Chronic: N Practice ID: [id number] [...] on file 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 JR T: Report ID: [id number] Reading Location: [id number] Procedure Note Hudson Mosley MD - 06/28/2025 [...] Hudson Mosley M.D., JR T: Report ID: [id number] Reading Location: [place] [address] us Teri Rodriguez [facility] IMG US PROCEDURES F inal Result * [...] 06/10/2025 12:32 PM CDT us Teri Rodriguez [facility] LAB BLOOD ORDERABLE S Final Result [facility] [address] [facility] Department [place] [address] * Differential, auto (06/10/2025 12:12 PM CDT) Pathologist [facility] Neutrophil abs 1.79 1.50 - 6.50 K/cumm Imm gran abs 0.01 0.00 - 0.10 K/cumm [facility] Lymphocyte abs 1.80 0.80 - 3.30 K/cumm [facility] Monocyte abs 0.50 0.20 - 0.80 K/cumm [facility] Eosinophil abs 0.07 0.00 - 0.50 K/cumm [facility] Basophil abs 0.02 0.00 - 0.10 K/cumm [facility] Neutrophil pct 42.7 % [facility] Comment: Interpretive Data Percent cell count reference ranges are not reported, since discordance with absolute values may lead to misinterpretation of CBC data. Current Interpretive Data was last revised on 2018. Imm gran pct 0.2 % [facility] Comment: Interpretive Data Percent cell count reference ranges are not reported, since discordance with absolute values may lead to misinterpretation of CBC data. Current Interpretive Data was last revised on 2018. Lymphocyte pct 43.0 % [facility] Comment: Interpretive Data Percent cell count reference ranges are not reported, since discordance with absolute values may lead to misinterpretation of CBC data. Current Interpretive Data was last revised on 2018. Monocyte pct 11.9 % [facility] Comment: Interpretive Data Percent cell count reference ranges are not reported, since discordance with absolute values may lead to misinterpretation of CBC data. Current Interpretive Data was last revised on 2018. Eosinophil pct 1.7 % [facility] Comment: Interpretive Data Percent cell count reference ranges are not reported, since discordance with absolute values may lead to misinterpretation of CBC data. Current Interpretive Data was last revised on 2018. Basophil pct 0.5 % [facility] Comment: Interpretive Data Percent cell count reference ranges are not reported, since discordance with absolute values may lead to misinterpretation of CBC data. Current Interpretive Data was last revised on 2018. Blood 06/10/2025 12:1 2 PM CDT 06/10/2025 12:32 PM CDT [facility] BLOOD ORDERABLE S Final Result Performing Organization Address [facility] Co de Phone Number [address] [place] [address] * Thyroid Function [place] (06/10/2025 12:12 PM CDT) [facility] TSH 2.53 0.30 - 4.20 mcIUnit/mL Blood 06/10/2025 12:1 2 PM CDT 06/10/2025 12:32 PM CDT [facility] LAB BLOOD ORDERABLE S Final Result Performing Organization Address [facility] de Phone Number [address] [address] * (ABNORMAL) CBC with auto differential (06/10/2025 12:12 PM CDT) [facility] WBC 4.19 3.80 - 9.90 K/cumm Hgb 11.4(L) 11.9 - 15.5 g/dL [facility] Hct 35.9 35.6 - 45.5 % [facility] Plt 286 150 - 400 K/cumm [facility] MPV 11.7 9.1 - 12.3 fL [facility] RBC 4.26 3.90 - 5.20 M/cumm [facility] MCV 84.3 81.3 - 96.4 fL [facility] MCH 26.8(L) 27.1 - 33.3 pg [facility] MCHC 31.8(L) 32.3 - 35.7 g/dL [facility] RDW CV 14.3 11.1 - 14.9 % [facility] RDW SD 43.9 35.7 - 48.1 fL [facility] NRBC abs 0.00 0.00 - 0.01 K/cumm [facility] Blood 06/10/2025 12:1 2 PM CDT 06/10/2025 12:32 PM CDT Teri Rendonette [facility] LAB BLOOD ORDERABLE S Final Result Performing Organization Address [facility] de Phone Number [address] [place] [address] * (ABNORMAL) Vitamin D 25 hydroxy (06/10/2025 12:12 PM CDT) [facility] Vitamin D 25-OH 26.0(L) 30.0 - 80.0 ng/mL Blood 06/10/2025 12:1 2 PM CDT 06/10/2025 12:32 PM CDT [facility] LAB BLOOD ORDERABLE S Final Result Performing Organization Address [facility] de Phone Number [address] [address] * Hemoglobin A1c (06/10/2025 12:12 PM CDT) [facility] Hgb A1C 5.3 4.0 - 5.6 % Estimated Average Glucose 105 mg/dL [facility] Comment: The ADA recommends reporting an estimated Average Glucose (eAG) with all Hemoglobin A1c results using the equation derived from a study of 507 normal and diabetic adults. Minority populations were underrepresented and children were not included. (Diabetes Care 31:7664-4718, 2008). The eAG is not equivalent to a fasting glucose. Blood 06/10/2025 12:1 2 PM CDT 06/10/2025 12:32 PM CDT [facility] Rendonette [facility] LAB BLOOD ORDERABLE S Final Result Performing Organization Address [facility] de Phone Number [address] Department [place] [address] * Lipid panel (06/10/2025 12:12 PM CDT) [...] 06/10/2025 12:32 PM CDT us Teri Rodriguez [facility] LAB BLOOD ORDERABLE S Final Result [facility] LOWE [address] [facility] Department [place] [address] * Comprehensive metabolic panel (06/10/2025 12:12 PM CDT) Sodium 140 135 - 145 mmol/L Potassium, pl 4.0 3.3 - 4.9 mmol/L [facility] Chloride 104 97 - 110 mmol/L [facility] CO2 26 22 - 32 mmol/L [facility] Anion gap 10 2 - 15 mmol/L [facility] BUN 9 6 - 25 mg/dL [facility] Creatinine 0.63 0.60 - 1.10 mg/dL [facility] Glucose 89 70 - 199 mg/dL [facility] Comment: Interpretive Data Fasting glucose >/= [...] 2022. Calcium 8.8 8.5 - 10.3 mg/dL [facility] Bilirubin, total 0.9 0.1 - 1.2 mg/dL [facility] Protein, pl 7.4 6.5 - 8.5 g/dL [facility] Albumin 4.2 3.5 - 5.0 g/dL [facility] Alk phos 66 40 - 130 Units/L [facility] ALT 12 7 - 45 Units/L [facility] AST 23 10 - 45 Units/L [facility] Blood 06/10/2025 12:1 2 PM CDT 06/10/2025 12:32 PM CDT Teri Rodriguez [facility] LAB BLOOD ORDERABLE S Final Result [facility] [address] [facility] Department [place] [address] * Urinalysis reflex to microscopic and culture Urine, clean voided (06/10/2025 12:09 PM CDT) Color, ur Yellow Yellow Clarity, ur Clear Clear [facility] Specific gravity, ur 1.024 1.003 - 1.030 [facility] pH, urine 7.5 [facility] Comment: Interpretive Data U rine pH is affected by diet, medications, systemic acid-base disturbances, and renal tubular function. pH may affect urinary stone formation. For example, urine pH below 6.0 may help reduce the tendency for calcium phosphate stones and pH greater than 6.0 may reduce the tendency for uric acid stone formation. Source: [facility] Current Interpretive Data was last revised on 2017 Protein, ur ql Negative Negative [facility] Glucose, ur ql Negative Negative [facility] Ketones, ur Negative Negative [facility] Bilirubin, ur Negative Negative [facility] Blood, ur Negative Negative [facility] Urobilinogen, ur <2.0 <2.0 mg/dL [facility] Nitrite, ur Negative Negative [facility] Leukocyte esterase, ur Negative Negative [facility] UA reflex comment Reflex conditions for microscopic UA and culture not met. [facility] Urine, clean voided 06/10/2025 12:09 PM CDT 06/10/2025 12:31 PM CDT Narrative [facility] - 06/10/2025 12:58 PM CDT Urine Collection Method->Clean Catch us Teri Rodriguez [facility] LAB MICROBIOLOGY - GENERAL ORDERABLES Final Result [facility] [address] [facility] Department [place] [address] from Last 3 Months Insurance [facility] Care Teams Vice President Industrial Relations Relationship Specialty Start Date End Date Teri Rodriguez DNP [address] [place] [address] [place] [address] PCP - General Family Medicine 06/10/25
--- OUTSIDE RECORDS SUMMARY | 2025-07-06 14:21 | XMS_ITS | Encounter Summary ---
Author Organization [facility] Healthcare Address [address] [place] [address] Care Team Providers Care Electrical Integrator Name Role Phone Teri Rodriguez DNP Primary Care Provi sandy Encounter Details Date Type Department Care Team (Late st Contact Info) Description 06/13/2025 Results Follow-Up [facility] Medical Group Family Medicine [address] [facility] [address] [place] [address] [address] [place] [address] Vitamin D 25 hydroxy, Urinalysis reflex to microscopic and culture Urine, clean voided, Thyroid Function [place], Additional followed-up results: 6 Social History Tobacco [...] on file 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
--- OUTSIDE RECORDS SUMMARY | 2025-07-06 14:21 | XMS_ITS | Clinical Summary ---
Author Organization [facility] Address [facility] [place] [address] Care Team Providers Care Setter Up Name Role Phone None, Provider MD Primary [...] age to complete this topic Insurance [address] [place] [address] [employer] Care Teams Setter Up Relationship Specialty Start Date End Date None, Provider, PCP - General 09/16/21
--- OUTSIDE RECORDS SUMMARY | 2025-07-06 14:21 | XMS_ITS | Clinical Summary ---
Author Organization [facility] Address [address] [place] [address] Care Team Providers Care Poultry Hatchery Manager Name Role Phone Miriam Marcelino Primary Care Provider [phone] Source Comments [facility],non-[facility] health Affiliates and Associated Physician Practices is amultiple site organization consisting of ambulatory clinics and hospital sitesin [place], [place], [place] and [place]. This disclosure is being madepursuant to the Care Everywhere program and may not contain all information available regarding this patient. Last updated 18.[facility] Writer.ly Allergies Active Allergy Reactions Criticality Noted Date [...] ve Non-react tania 04/30/2022 8:07 PM CDT [facility] Comment:No Laboratory eviden ce of HIV infection. Blood BLOOD SPECIMEN / Unknown Venipuncture / Unknown 04/30/2022 6:34 PM CDT 04/30/2022 6:38 PM CDT Renato Parr MD LAB - CHEMISTRY ORDERAB LES Final Result [facility] [address] [place] [address], [facility] [phone] from Last 3 Months or Most Recently Relevant to Health Maintenance Insurance [facility] Care Teams Poultry Hatchery Manager Relationship Specialty Start Date End Date Miriam Marcelino PA [address] [place] [address] [place] [id number] PCP - General 10/21/18
[2025-07-06] MEDS: INDOMETHACIN 25 MG CAPSULE 75 MG PO (15:11)
== END 2025-07-06 15:36 | disposition home or self-care (01) ==
PROVIDERS: Emergency Provider Emergency Medicine
DX: M10.9 Gout, unspecified (principal)
CPT/HCPCS: 73630; 99283; A9270

== ENCOUNTER 2025-07-24 23:26 | Emergency (ER) | payer OTHER, SELFPAY ==
--- OUTSIDE RECORDS SUMMARY | 2025-07-23 12:04 | XMS_ITS | Encounter Summary ---
Author Organization [facility] Healthcare Address [address] [place] [address] Care Team Providers Care Interior Design Principal Name Role Phone Teri Rodriguez [facility] Primary Care Provi [facility] Encounter Details Date Type Department Care Team (Latest Contact Info) Description 07/23/2025 12:04 PM CDT - 07/23/2025 11:59 PM CDT Hospital Encounter [address] [address] Sore throat Discharge Disposition: Discharge to home or self care Social History Tobacco Use Types Packs/Day Years [...] more points, staff should administer the PHQ-9) 3 07/15/2025 PHQ-9 Answer Date Recorded PHQ-9 Total Score 13 07/15/2025 Comments Unknown Sex and Gender Information Value Date Recorded Sex Assigned at Not on file 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 Gender Identity Not on file Sexual Orientation Not on file documented as of this encounter Medications at Time of Discharge indomethacin SR (INDOCIN SR) 75 mg CR capsuleIndications :Great toe pain, left Take 1 capsule (75 mg total) by mouth 2 (two) times a day with meals lidocaine viscous (XYLOCAINE) 2 % solutionIndication s:Sore throat Apply 10 mL to the mouth or throat every 6 (six) hours as needed (sore throat) May mix with 30 ml of Mylanta 100 mL 07/23/2025 naproxen (NAPROSYN) 500 mg tabletIndications: Great toe pain, left Take 1 tablet (500 mg total) by mouth 2 (two) times a day as needed for pain (pain) 180 tablet 07/15/2025 polyethylene glycol (MIRALAX) 17 gram/dose bulk powderIndications: constipation Take 17 g by mouth daily 1530 g 1 07/15/2025 psyllium 0.52 gram capsuleIndications :Constipation, unspecified constipation type Take 1 capsule (0.52 g total) by mouth daily 90 capsule 1 07/15/2025 documented as of this encounter Discharge Disposition Disposition Code Departure Means Destination Discharge to home or self care documented in this encounter Plan of Treatment Not on file documented as of this encounter Procedures Procedure Name Priority Date/Time Associated Diagnosis Comments THROAT CULTURE Routine 07/23/2025 10:00 AM CDT Sore throat documented in this encounter Results * Throat culture Throat (07/23/2025 10:00 AM CDT) Report Final Report: No growth of pathogens. Comment:Testing performed by : [facility], [address] [facility] [place] [address] Throat 07/23/2025 10:0 0 AM CDT 07/23/2025 6:32 PM CDT Narrative [facility] - 07/24/2025 1:55 PM CDT Testing performed by [facility] Microbiology Laboratory ([phone]). us Holly Schaefer NP LAB MICROBIOLOGY - GENERAL ORDERABLES Final Result [facility] [address] Department of Laboratories [place], [place] [id number] documented in this encounter Visit Diagnoses Diagnosis Sore throat Acute pharyngitis documented in this encounter Care Teams Interior Design Principal Relationship Specialty Start Date End Date Teri Rodriguez DNP [address] [address] [address] [place] [address] PCP - General Family Medicine 06/10/25 documented as of this encounter
[2025-07-24 23:36] VITALS: BP 117/76; PULSE 90; RESP 20; TEMP 37; O2SAT 100
--- OUTSIDE RECORDS SUMMARY | 2025-07-25 02:01 | XMS_ITS | Encounter Summary ---
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 Gender Identity Not on file Sexual Orientation Not on file documented as of this encounter Plan of Treatment Not on file documented as of this encounter Visit Diagnoses Not on filedocumented in this encounter Additional Health Concerns Infection Onset Date Last Indicated Resolved Time COVID: Suspected 07/23/2025 07/23/2025 07/23/2025 11:16 AM CDT documented as of this encounter Care Teams Matrix Bath Attendant Relationship Specialty Start Date End Date Teri Rodriguez DNP [address] [address] [place] [address] [place] [address] PCP - General Family Medicine 06/10/25 documented as of this encounter
--- OUTSIDE RECORDS SUMMARY | 2025-07-25 02:01 | XMS_ITS | Clinical Summary ---
Author Organization [facility] Address [address] [place] [address] Phone Care Team Providers Care Microcomputer Support Specialist Name Role Phone Miriam Marcelino Primary Care Provider [phone] Allergies Active Allergy Reactions Criticality Noted Date [...] (CCS) 2021 HPV/Cotest 2021 Influenza Immunization (#1) 2025 SARS-COV-2 Immunization ( season) 2025 Respiratory Syncytial Virus (RSV) Immunization (Adult) [...] Insurance MEDICAID [employer] Care Teams Microcomputer Support Specialist Relationship Specialty Start Date End Date Miriam Marcelino PA [address] [address] PCP - General Adult Medicine 02/10/17
--- OUTSIDE RECORDS SUMMARY | 2025-07-25 02:01 | XMS_ITS | Clinical Summary ---
Author Organization [facility] Virtual Care Address [facility] [place] [address] Phone Care Team Providers Care Brine Plant Operator Name Role Phone Teri Rodriguez DNP Primary Care Provi sandy Allergies Active Allergy Reactions Criticality Noted Date Comments Sulfa Swelling Medium 04/20/2018 Medications indomethacin SR (INDOCIN SR) 75 mg CR capsuleIndicati ons:Great toe pain, left Take 1 capsule (75 mg total) by mouth 2 (two) times a day with meals Active polyethylene glycol (MIRALAX) 17 gram/dose bulk powderIndicatio ns:constipation Take 17 g by mouth daily 1530 g 1 07/15/20 25 Active psyllium 0.52 gram capsuleIndicati ons:Constipatio n, unspecified constipation type Take 1 capsule (0.52 g total) by mouth daily 90 capsule 1 07/15/20 25 026 Active naproxen (NAPROSYN) 500 mg tabletIndicatio ns:Great toe pain, left Take 1 tablet (500 mg total) by mouth 2 (two) times a day as needed for pain (pain) 180 tablet 07/15/20 25 Active Additional Information Patient not taking.Reported on 07/23/2025 lidocaine viscous (XYLOCAINE) 2 % solutionIndicat ions:Sore throat Apply 10 mL to the mouth or throat every 6 (six) hours as needed (sore throat) May mix with 30 ml of Mylanta 100 mL 07/23/20 25 Active fluticasone propionate (FLONASE) 50 mcg/actuation nasal sprayIndication s:Postnasal drip,Nasal hypertrophy,Env ironmental and seasonal allergies Administer 2 sprays into each nostril daily 3 each 3 06/10/20 25 025 Discontinued cetirizine (ZyrTEC) 10 mg tabletIndicatio ns:Postnasal drip,Nasal hypertrophy,Env ironmental and seasonal allergies Take 1 tablet (10 mg total) by mouth daily as needed for rhinitis or allergies 90 tablet 3 06/10/20 25 025 Discontinued Active Problems Problem Noted Date Diagnosed Date Constipation 07/15/2025 Assessment & Plan (07/15/2025 3:27 PM CDT): Take MiraLax 17 g pack daily Take Metamucil 0.52 g capsule daily Recommend drinking at least 64 oz of water daily Recommend moderate aerobic XR size for at least 150 minutes weekly Follow up in one-month Left foot pain 07/15/2025 Assessment & Plan (07/15/2025 3:29 PM CDT): Labs ordered Continue NSAIDs as needed for pain and swelling Information for gout diet provided to patient Release of information signed to obtain records from [facility] Patient declines to repeat x-ray studies Great toe pain, left 07/15/2025 Assessment & Plan (07/15/2025 3:30 PM CDT): Labs ordered Continue NSAIDs as needed for pain and swelling Information for gout diet provided to patient Release of information signed to obtain records from [facility] Patient declines to repeat x-ray studies Vitamin D insufficiency 07/15/2025 Assessment & Plan (07/15/2025 3:30 PM CDT): Recommend taking [id number] vitamin D3 2000 IU daily Family history of colon cancer 07/15/2025 Assessment & Plan (07/15/2025 3:31 PM CDT): Consider referral to GI for colonoscopy if symptoms persist Annual physical exam 06/10/2025 Assessment & Plan [...] Diagnosed Date Resolved Date 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 Overview (06/10/2025): Oth noninflammatory disorders of vulva and perineum;Recorded Elsewhere: No Location: [facility] Source: EHR Chronic: N Practice ID: [id number] Billable Time: 03:00:00 PM Postinflammatory hyperpigmentation 04/20/2018 06/10/2025 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 Encounters Date Type Department Care Team Description 07/24/2025 Results Follow-Up [facility] at [address] [address] Holly Schaefer, GRACIE Throat culture Throat 07/23/2025 12:04 PM CDT - 07/23/2025 11:59 PM CDT Hospital Encounter [address] [address] Sore throat Discharge Disposition: Discharge to home or self care 07/23/2025 10:45 AM CDT Office Visit [facility] at [address] [address] Holly Schaefer, GRACIE Sore throat (Primary Dx) 07/23/2025 Results Follow-Up [facility] Family Medicine [address] [facility] [place] [address] Teri Rodriguez DNP CRP (acute phase), Erythrocyte sedimentation rate, Uric acid 07/15/2025 3:40 PM CDT Lab [facility] [address] [place] [address] Great toe pain, left 07/15/2025 3:00 PM CDT Office Visit [address] [address] Teri Rodriguez DNP Great toe pain, left (Primary Dx); Left foot pain; Constipation, unspecified constipation type; Vitamin D insufficiency; Family history of colon cancer 06/17/2025 3:13 PM CDT - 06/17/2025 11:59 PM CDT Hospital Encounter [address] [address] Goiter Discharge Disposition: Discharge to home or self care 06/13/2025 Results Follow-Up [address] [address] Teri Rodriguez DNP Vitamin D 25 hydroxy, Urinalysis reflex to microscopic and culture Urine, clean voided, Thyroid Function [place], Additional followed-up results: 7 06/10/2025 12:10 PM CDT Lab [facility] [address] [place] [address] Annual physical exam; Encounter for vitamin deficiency screening; Encounter for long-term (current) use of medications; Thyroid disorder screen; Lipid screening; Screening for diabetes mellitus 06/10/2025 11:30 AM CDT Office Visit [address] [address] Teri Rodriguez DNP Annual physical exam (Primary [...] of vulva and perineum;Recorded Elsewhere: No Location: [facility] Source: EHR Chronic: N Practice ID: [id number] [...] on file 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 Gender Identity Not on file Sexual Orientation Not on file Obstetrics History Para Term AB IAB SAB Ectopic Multiple Livin g Live Births 3 2 2 Date Outcome GA Total Labor Labor/2nd/3rd Weight Sex Type Anes PTL Maya A1 A5 Name Clin Para Para Last Filed Vital Signs Vital Sign Reading Time Taken Comments Blood Pressure 110/78 07/23/2025 10:43 AM CDT Pulse 88 07/23/2025 10:43 AM CDT Temperature 36.7 C (98.1 F) 07/23/2025 10:43 AM CDT Respiratory Rate 16 07/23/2025 10:43 AM CDT Oxygen Saturation 99% 07/23/2025 10:43 AM CDT Inhaled Oxygen Concentration - - Weight 91.8 kg (202 lb 6.4 oz) 07/23/2025 10:43 AM CDT Height 168.9 cm (5' 6.5) 07/23/2025 10:43 AM CD T Body Mass Index 32.18 07/23/2025 10:43 AM CDT Plan of Treatment Health Maintenance Due Date Last Done Comments Cervical Cancer Screening 1991 Hepatitis C Screening 1991 DTaP/Tdap/Td Vaccine (1 - Tdap) 2002 Varicella Vaccines (1 of 2 - 13+ 2-dose series) 02/11/2004 Hepatitis B Screening 2009 HPV Vaccines (1 - 3-dose SCD M series) 2018 Covid-19 Vaccine (3 - 2024-2 6 season) 2025 12/10/2021, 11/19/2021 Influenza Vaccine (#1) 2025 Regular Well Visit/Exam 18-64 06/10/2026 06/10/2025 Depression Screening 07/15/2026 07/15/2025, 07/15/2025, 06/10/2025 Pneumococcal vaccine <65 Aged Out No longer eligible based on patient's age to complete this topic Procedures Procedure Name Priority Date/Time Associated Diagnosis Comments POC INFLUENZA A/B, COVID-19 ANTIGEN Routine 07/23/2025 11:15 AM CDT Sore throat POCT RAPID STREP Routine 07/23/2025 11:1 5 AM CDT Sore throat THROAT CULTURE Routine 07/23/2025 10:00 AM CDT Sore throat URIC ACID Routine 07/15/2025 3:45 PM CDT Great toe pain, left ERYTHROCYTE SEDIMENTATION RATE Routine 07/15/2025 3:45 PM CDT Great toe pain, left CRP (ACUTE PHASE) Routine 07/15/2025 3:4 5 PM CDT Great toe pain, left US THYROID Schedule Routine, Read Routine (OP [...] medications from Last 3 Months Results * POC Influenza A/B, COVID-19 antigen (07/23/2025 11:15 AM CDT) Influenza A Ag, POC Negative Negative [facility] Influenza B Ag, POC Negative Negative [facility] COVID-19 Ag POC Presumptive Negative Presumptive Negative, Invalid [facility] Nasal 07/23/2025 11:1 5 AM CDT Holly Schaefer NP POINT OF CARE TEST ORDERAB LES Final Result Performing Organization Address [facility] Co de Phone Number [facility] [address] * POCT rapid strep A (07/23/2025 11:15 AM CDT) Rapid Strep A, POC Negative Negative [facility] ED Swab 07/23/2025 11:1 5 AM CDT Holly Schaefer PRODUCTION SCHEDULER POINT OF CARE TEST ORDERAB LES Final Result Performing Organization Address [facility] de Phone Number [facility] [address] * Throat culture Throat (07/23/2025 10:00 AM CDT) Report Final Report: No growth of pathogens. Comment:Testing performed by : [facility], [address] [place]., [address] Throat 07/23/2025 10:0 0 AM CDT 07/23/2025 6:32 PM CDT Narrative TAVIA Theodore 07/24/2025 1:55 PM CDT Testing performed by [facility] ([phone]). Holly Schaefer NP LAB MICROBIOLOGY - GENERAL ORDERABLES Final Result Performing Organization Address [facility] Co de Phone Number [facility] [address] [place] [address] * Erythrocyte sedimentation rate (07/15/2025 3:45 PM CDT) Erythrocyte sedimentation rate 15 1 - 20 mm/hr Blood 07/15/2025 3:45 PM CDT 07/15/2025 4:06 PM CDT Teri Rodriguez DNP LAB BLOOD ORDERABLE S Final Result Performing Organization Address City/[facility] de Phone Number TAVIA [address] [address] * CRP (acute phase) (07/15/2025 3:45 PM CDT) CRP 2.9 <=10.0 mg/L Blood 07/15/2025 3:45 PM CDT 07/15/2025 4:06 PM CDT [facility] BLOOD [facility]ABLE S Final Result Performing Organization Address [facility] de Phone Number TAVIA [address] [address] * Uric acid (07/15/2025 3:45 PM CDT) Pathologist [facility] Uric acid 4.6 2.5 - 7.0 mg/dL Blood 07/15/2025 3:45 PM CDT 07/15/2025 4:06 PM CDT [facility] BLOOD ORDERABLE S Final Result Performing Organization Address [facility] de Phone Number TAVIA [address] [address] * US Thyroid (06/17/2025 3:30 PM CDT) [...] Hudson Mosley M.D., JR T: Report ID: [id number] Reading Location: [place] [address] Procedure Note Hudson Mosley MD - 06/28/2025 [...] Hudson Mosley M.D. JR T: Report ID: [id number] Reading Location: [place] [address] us Teri Rodriguez [facility] US PROCEDURES F inal Result * eGFR [...] 06/10/2025 12:32 PM CDT us Teri Rodriguez [facility] LAB BLOOD ORDERABLE S Final Result [place] [id number] [facility] Department of Laboratories [place], [place] [id number] * Differential, auto (06/10/2025 12:12 PM CDT) Pathologist [facility] Neutrophil abs 1.79 1.50 - 6.50 K/cumm Imm gran abs 0.01 0.00 - 0.10 K/cumm [facility] Lymphocyte abs 1.80 0.80 - 3.30 K/cumm [facility] Monocyte abs 0.50 0.20 - 0.80 K/cumm [facility] Eosinophil abs 0.07 0.00 - 0.50 K/cumm [facility] Basophil abs 0.02 0.00 - 0.10 K/cumm [facility] Neutrophil pct 42.7 % [facility] Comment: Interpretive Data Percent cell count reference ranges are not reported, since discordance with absolute values may lead to misinterpretation of CBC data. Current Interpretive Data was last revised on 2018. Imm gran pct 0.2 % [facility] Comment: Interpretive Data Percent cell count reference ranges are not reported, since discordance with absolute values may lead to misinterpretation of CBC data. Current Interpretive Data was last revised on 2018. Lymphocyte pct 43.0 % [facility] Comment: Interpretive Data Percent cell count reference ranges are not reported, since discordance with absolute values may lead to misinterpretation of CBC data. Current Interpretive Data was last revised on 2018. Monocyte pct 11.9 % [facility] Comment: Interpretive Data Percent cell count reference ranges are not reported, since discordance with absolute values may lead to misinterpretation of CBC data. Current Interpretive Data was last revised on 2018. Eosinophil pct 1.7 % [facility] Comment: Interpretive Data Percent cell count reference ranges are not reported, since discordance with absolute values may lead to misinterpretation of CBC data. Current Interpretive Data was last revised on 2018. Basophil pct 0.5 % [facility] Comment: Interpretive Data Percent cell count reference ranges are not reported, since discordance with absolute values may lead to misinterpretation of CBC data. Current Interpretive Data was last revised on 2018. Blood 06/10/2025 12:1 2 PM CDT 06/10/2025 12:[address] [facility] LAB BLOOD ORDERABLE S Final Result Performing Organization Address [facility] Co de Phone Number [address] [address] * Thyroid Function [place] (06/10/2025 12:12 PM CDT) [facility] TSH 2.53 0.30 - 4.20 mcIUnit/mL Blood 06/10/2025 12:1 2 PM CDT 06/10/2025 12:[address] [facility] LAB BLOOD ORDERABLE S Final Result Performing Organization Address [facility]/ZIP Co de Phone Number [address] [address] * (ABNORMAL) CBC with auto differential (06/10/2025 12:12 PM CDT) [facility] WBC 4.19 3.80 - 9.90 K/cumm Hgb 11.4(L) 11.9 - 15.5 g/dL [facility] Hct 35.9 35.6 - 45.5 % [facility] Plt 286 150 - 400 K/cumm [facility] MPV 11.7 9.1 - 12.3 fL [facility] RBC 4.26 3.90 - 5.20 M/cumm [facility] MCV 84.3 81.3 - 96.4 fL [facility] MCH 26.8(L) 27.1 - 33.3 pg [facility] MCHC 31.8(L) 32.3 - 35.7 g/dL [facility] RDW CV 14.3 11.1 - 14.9 % [facility] RDW SD 43.9 35.7 - 48.1 fL [facility] NRBC abs 0.00 0.00 - 0.01 K/cumm [facility] Blood 06/10/2025 12:1 2 PM CDT 06/10/2025 12:32 PM CDT [facility] LAB BLOOD ORDERABLE S Final Result Performing Organization Address [facility]/ZIP Co de Phone Number [address] [place] [address] * (ABNORMAL) Vitamin D 25 hydroxy (06/10/2025 12:12 PM CDT) [facility] Vitamin D 25-OH 26.0(L) 30.0 - 80.0 ng/mL Blood 06/10/2025 12:1 2 PM CDT 06/10/2025 12:[address] [facility] LAB BLOOD ORDERABLE S Final Result Performing Organization Address City/[facility]/ZIP Co de Phone Number [address] [place] [address] * Hemoglobin A1c (06/10/2025 12:12 PM CDT) [facility] Hgb A1C 5.3 4.0 - 5.6 % Estimated Average Glucose 105 mg/dL [facility] Comment: The ADA recommends reporting an estimated Average Glucose (eAG) with all Hemoglobin A1c results using the equation derived from a study of 507 normal and diabetic adults. Minority populations were underrepresented and children were not included. (Diabetes Care 31:5056-2214, 2008). The eAG is not equivalent to a fasting glucose. Blood 06/10/2025 12:1 2 PM CDT 06/10/2025 12:32 PM CDT us Teri Rendonamy Rodriguez [facility] LAB BLOOD ORDERABLE S Final Result TAVIA [address] [facility] Department [place] [address] * Lipid panel (06/10/2025 12:12 PM CDT) [...] on 2018. HDL 63 >=40 mg/dL TAVIA LOWE Comment: Interpretive Data Ages [...] NCEP Expert Panel. Circulation 2004;110:227 3. Diogenes M et al. TREMAINE Cardiol. 2020 March 21;5(5):540-548. doi: 10.1001/jamacardio.2020.0013 Current Interpretive Data was last revised on 2024. Non-HDL Cholesterol 100 mg/dL TAVIA Comment: Interpretive Data Ages < [...] revised on 2018. Chol/HDL ratio 3 TAVIA Blood 06/10/2025 12:1 2 PM CDT 06/10/2025 12:32 PM CDT Teri Rosas [facility] LAB BLOOD ORDERABLE S Final Result Performing Organization Address City/State/[facility] Co de Phone Number TAVIA [address] [facility] Department [place] [address] * Comprehensive metabolic panel (06/10/2025 12:12 PM CDT) Sodium 140 135 - 145 mmol/L Potassium, pl 4.0 3.3 - 4.9 mmol/L [facility] Chloride 104 97 - 110 mmol/L [facility] CO2 26 22 - 32 mmol/L [facility] Anion gap 10 2 - 15 mmol/L [facility] BUN 9 6 - 25 mg/dL [facility] Creatinine 0.63 0.60 - 1.10 mg/dL [facility] Glucose 89 70 - 199 mg/dL [facility] Comment: Interpretive Data Fasting glucose >/= 126 [...] 2022. Calcium 8.8 8.5 - 10.3 mg/dL [facility] Bilirubin, total 0.9 0.1 - 1.2 mg/dL [facility] Protein, pl 7.4 6.5 - 8.5 g/dL [facility] Albumin 4.2 3.5 - 5.0 g/dL [facility] Alk phos 66 40 - 130 Units/L [facility] ALT 12 7 - 45 Units/L [facility] AST 23 10 - 45 Units/L [facility] Blood 06/10/2025 12:1 2 PM CDT 06/10/2025 12:32 PM CDT Teri Rosas [facility] LAB BLOOD ORDERABLE S Final Result TAVIA LOWE [address] [facility] [place] [address] * Urinalysis reflex to microscopic and culture Urine, clean voided (06/10/2025 12:09 PM CDT) Color, ur Yellow Yellow Clarity, ur Clear Clear [facility] [place]NOTE 2] Specific gravity, ur 1.024 1.003 - 1.030 [facility] pH, urine 7.5 [facility] Comment: Interpretive Data U rine pH is affected by diet, medications, systemic acid-base disturbances, and renal tubular function. pH may affect urinary stone formation. For example, urine pH below 6.0 may help reduce the tendency for calcium phosphate stones and pH greater than 6.0 may reduce the tendency for uric acid stone formation. Source: [facility] Current Interpretive Data was last revised on 2017 Protein, ur ql Negative Negative [facility] Glucose, ur ql Negative Negative [facility] Ketones, ur Negative Negative [facility] Bilirubin, ur Negative Negative [facility] Blood, ur Negative Negative [facility] Urobilinogen, ur <2.0 <2.0 mg/dL [facility] Nitrite, ur Negative Negative [facility] Leukocyte esterase, ur Negative Negative [facility] UA reflex comment Reflex conditions for microscopic UA and culture not met. ATVIA Urine, clean voided 06/10/2025 12:09 PM CDT 06/10/2025 12:31 PM CDT Narrative [facility] - 06/10/2025 12:58 PM CDT Urine Collection Method->Clean Catch Teri Rodriguez [facility] LAB MICROBIOLOGY - GENERAL ORDERABLES Final Result Performing Organization Address [facility]/ZIP Co de Phone Number TAVIA [address] [facility] [place] [address] from Last 3 Months Insurance [facility] Care Teams Brine Plant Operator Relationship Specialty Start Date End Date Teri Rodriguez DNP [address] [place] [address] [place] [id number] PCP - General Family Medicine 06/10/25
--- OUTSIDE RECORDS SUMMARY | 2025-07-25 02:01 | XMS_ITS | Clinical Summary ---
Author Organization [facility] Address [address] [place] [address] Care Team Providers Care Technology Support Analyst Name Role Phone Miriam Marcelino Primary Care Provider [phone] Source Comments [facility],non-[facility] Affiliates and Associated Physician Practices is amultiple site organization consisting of ambulatory clinics and hospital sitesin [place], [place], [place] and [place]. This disclosure is being madepursuant to the Care Everywhere program and may not contain all information available regarding this patient. Last updated 18.[facility]OS Allergies Active Allergy Reactions Criticality Noted Date [...] ve Non-react tania 04/30/2022 8:07 PM CDT [facility] Comment:No Laboratory eviden ce of HIV infection. Blood BLOOD SPECIMEN / Unknown Venipuncture / Unknown 04/30/2022 6:34 PM CDT 04/30/2022 6:38 PM CDT Renato Parr MD LAB - CHEMISTRY ORDERAB LES Final Result [facility] [address] [place] [address], [facility] [phone] from Last 3 Months or Most Recently Relevant to Health Maintenance Insurance [facility] Care Teams Technology Support Analyst Relationship Specialty Start Date End Date Miriam Marcelino PA [address] [place] [address] [place] [phone] PCP - General 10/21/18
--- OUTSIDE RECORDS SUMMARY | 2025-07-25 02:01 | XMS_ITS | Encounter Summary ---
Author Organization [facility] Healthcare Address [address] [place] [address] Care Team Providers Care Booth Usher Name Role Phone Teri Rodriguez DNP Primary Care Provi sandy Encounter Details Date Type Department Care Team (Late st Contact Info) Description 06/13/2025 Results Follow-Up [facility] Medical Group Family Medicine [address] [address] [place] [address] [address] [place] [address] Vitamin D 25 hydroxy, Urinalysis reflex to microscopic and culture Urine, clean voided, Thyroid Function [place], Additional followed-up results: 7 Social History Tobacco Use Types Packs/Day Years [...] on file 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 Gender Identity Not on file Sexual Orientation Not on file documented as of this encounter Plan of Treatment Not on file documented as of this encounter Visit Diagnoses Not on filedocumented in this encounter Additional Health Concerns Infection Onset Date Last Indicated Resolved Time COVID: Suspected 07/23/2025 07/23/2025 07/23/2025 11:16 AM CDT documented as of this encounter Care Teams Booth Usher Relationship Specialty Start Date End Date Teri Rodriguez DNP [address] [place] [address] [place] [address] PCP - General Family Medicine 06/10/25 documented as of this encounter
--- OUTSIDE RECORDS SUMMARY | 2025-07-25 02:01 | XMS_ITS | Clinical Summary ---
Author Organization [facility] Address [facility] [place] [address] Care Team Providers Care Spool Cleaner Name Role Phone None, Provider MD Primary [...] (1 - 3-dose SCD M series) 2018 Cervical Cancer Screening Pa p Smear (Age 30 to 64) Every 3 Years 04/30/2025 04/30/2022, 04/30/2022 COVID-19 Vaccine (1 - 4-2 5 season) 2025 Cervical Cancer Screening Pa p with HPV [...] age to complete this topic Insurance [address] [place] [address] [employer] Care Teams Spool Cleaner Relationship Specialty Start Date End Date None, Provider, PCP - General 09/16/21
--- OUTSIDE RECORDS SUMMARY | 2025-07-25 02:01 | XMS_ITS | Encounter Summary ---
Author Organization [facility] Healthcare Address [address] [place] [address] Care Team Providers Care Director Life Insurance Name Role Phone Teri Rodriguez [facility] Primary Care [facility]vi [facility] Encounter Details Date Type Department Care Team (Late st Contact Info) Description 07/24/2025 Results Follow-Up [facility] [place] [id number] [place] [address] [place] [address] [place] [address] [address] [place] [address] Throat culture Throat Social History Tobacco Use Types Packs/Day Years [...] on file Legal Sex Female 7:02 PM [employer] Gender Identity Not on file Sexual Orientation Not on file documented as of this encounter Plan of Treatment Not on file documented as of this encounter Visit Diagnoses Not on filedocumented in this encounter Care Teams Director Life Insurance Relationship Specialty Start Date End Date Teri Rodriguez DNP [address] [place] [address] PCP - General Family Medicine 06/10/25 documented as of this encounter
--- NOTE | 2025-07-25 02:13 | ED.URI ---
HPI - URI/Sore Throat General Chief Complaint: Upper Respiratory Infection Stated Complaint: cold symptoms Time Seen by Provider: 07/25/25 01:44 History of Present Illness HPI Narrative: 35-year-old female with no past medical history presents to emergency department for sore throat and clear nasal drainage for the past 2-3 days. Patient reports sinus congestion. She denies fever and cough. Was concerned symptoms may be due to seasonal allergies. Related Data Allergies Allergy/AdvReac Type Severity Reaction Status Date / Time Sulfa (Sulfonamide Allergy Severe SWELLING Verified 07/24/25 23:39 Antibiotics) Review of Systems Review of Systems: All systems reviewed & are unremarkable except as noted in HPI and below PMFSH Past Medical History Medical History Patient denies significant medical history Surgical History Surgical History Hx of section Social History Social History Smoking status: Never smoker Exam Narrative: GENERAL: Well-appearing, well-nourished, and in no acute distress. HEAD: Normocephalic, atraumatic. EYES: PERRLA and EOMI. ENT: Nares clear, no rhinorrhea or epistaxis. Mucous membranes moist. Bilateral TMs are art nonbulging with normal canals. Posterior pharynx erythema or edema. No tonsillar hypertrophy or exudates. Uvula is midline. No trismus. Patient is tolerating secretions. NECK: Supple. CHEST: Clear to auscultation. No respiratory distress. HEART: Regular rate and rhythm. No murmur heard. Normal peripheral pulses. ABDOMEN: Soft, nontender, nondistended, normal active bowel sounds. EXTREMITIES: Normal range of motion. No edema. SKIN: Warm, dry, no rash. NEURO: No focal deficits. Alert and oriented x3 Course Vital Signs Vital signs: Vital Signs Temperature 98.6 F 07/24/25 23:36 Pulse Rate 90 07/24/25 23:36 Respiratory Rate 20 07/24/25 23:36 Blood Pressure 117/76 07/24/25 23:36 Pulse Oximetry 100 07/24/25 23:36 Oxygen Delivery Room Air 07/24/25 23:36 Temperature 98.6 F 07/24/25 23:36 Pulse Rate 90 07/24/25 23:36 Respiratory Rate 20 07/24/25 23:36 Blood Pressure 117/76 07/24/25 23:36 Pulse Oximetry 100 07/24/25 23:36 Oxygen Delivery Room Air 07/24/25 23:36 MDM - URI/Sore Throat MDM Narrative Medical decision making narrative: 35-year-old female presents emergency department for sore throat and clear nasal rhinorrhea for the past 2-3 days. Triage vitals are stable. Patient is afebrile and nontoxic appearing. Exam is significant for the above. No tonsillar hypertrophy or exudates, no erythema. No evidence of deep space infection or COLLAR BASTER JUMPBASTING. Viral swabs and strep were negative. Patient was updated on results. She will be started on NSAIDs, antihistamines and Flonase for symptomatic control. Advised to follow-up with her PCP and given strict ED return precautions. She is agreeable with the plan verbalized understanding. Discharged in stable condition. Lab Data Labs: Lab Results 07/25/25 Range/Units 01:50 Influenza A (RT-PCR) Pending Influenza B (RT-PCR) Pending RSV (RT-PCR) Pending SARS-CoV-2 RNA (RT-PCR) Pending Group A Strep (PCR) Pending Discharge Plan Discharge Clinical Impression: Upper respiratory infection Qualifiers: URI type: unspecified viral URI Qualified Code(s): J06.9 - Acute upper respiratory infection, unspecified Patient Disposition: Home Condition: Stable Instructions: Antibiotic Form, Upper Respiratory Infection (DC) Additional Instructions: Please take the medications as directed. Follow-up closely with her primary care provider. Return to the emergency department if you develop fever, worsening pain or other concerning symptoms. Patient Language: Cameroonian Prescriptions: New ibuprofen 800 mg tablet 800 mg PO TID PRN (Reason: pain) Qty: 20 0RF fluticasone propionate [Flonase Allergy Relief] 50 mcg/actuation spray,suspension 1 spray intranasal Q12H Qty: 16 0RF Rx Instructions: administer into each nostril cetirizine 10 mg tablet 10 mg PO DAILY PRN (Reason: allergy symptoms) Qty: 14 0RF No Action mupirocin 2 % ointment 1 applic TOPICAL TID Qty: 22 0RF indomethacin 75 mg capsule, extended release 75 mg PO BID Qty: 10 0RF lidocaine 5 % adhesive patch,medicated 1 patch topical DAILY Qty: 15 0RF Rx Instructions: leave on most painful area for up to 12 hrs cyclobenzaprine 5 mg tablet 5 mg PO TID PRN (Reason: muscle spasm) Qty: 15 0RF Follow-up/Referrals: UNKNOWN,DOCTOR [Primary Care Provider] Cal Bravo MD [Physician, Family Practice]
[2025-07-25 02:26] LABS: Strep Group A RT-PCR NOT DETECTED (Negative)
[2025-07-25 02:38] LABS: Influenza A QL RT-PCR Negative (Negative); Influenza B QL RT-PCR Negative (Negative); RSV RNA, RT-PCR Negative (Negative); SARS-CoV-2 RNA PCR Negative (Negative)
== END 2025-07-25 02:56 | disposition home or self-care (01) ==
PROVIDERS: Student in an Organized Health Care Education/Training Program; Emergency Provider Physician Assistant
DX: J06.9 Acute upper respiratory infection, unspecified (principal); Z20.822 Contact with and (suspected) exposure to COVID-19
CPT/HCPCS: 87637; 87651; 99283